=== PATIENT | female | born 1965 | race Caucasian/White ===

== ENCOUNTER 2020-05-25 10:55 | Outpatient (REF) | payer OTHER, SELFPAY ==
--- NOTE | 2020-05-25 11:04 | MM_ITS ---
EXAMINATION: MM DIAGNOSTIC DIGITAL BREAST TOMOSYNTHESIS, RIGHT CLINICAL INFORMATION: Short interval follow-up for question of small asymmetric density on prior screening mammography without definite persistent at time of recall. Assess for developing density. The lifetime risk of breast cancer based on the Tyrer-Cuzick Model is 9%. COMPARISON: Mammography: 12/23/2019, 12/20/2019 (BI-RADS 0), 12/06/2018, 10/10/2017, 12/13/2014, 06/02/2013, 06/01/2013. TECHNIQUE: Digital breast tomosynthesis is performed in both the craniocaudal and mediolateral oblique views along with computer-aided detection (CAD). Synthesized 2D images are generated from the tomosynthesis. Additional right CC view is provided. FINDINGS: There are scattered areas of fibroglandular density (ACR BI-RADS breast composition Category b). Parenchymal pattern is similar to prior exams. There is no developing density in the area of interest. Scattered parenchymal asymmetries posterior upper outer right breast are stable. There are no abnormal calcifications. The skin contours are smooth. Right breast will be reassessed again at time of annual bilateral mammography. Results are provided to the patient at time of visit by the technologist. MM/MM tomosynthesis diagnostic RT IMPRESSION: No developing density or other interval suspicious change. ASSESSMENT: BI-RADS 3: Probably Benign RECOMMENDATION: Diagnostic mammography at time of annual bilateral mammography, due in 6 months. This patient's information was entered into a reminder system with a target due date for their next mammogram.
== END 2020-05-25 10:56 | disposition home or self-care (01) ==
LOC: HO.MAMMO 10:55
PROVIDERS: PCP Internal Medicine; Visit Provider Internal Medicine
DX: N64.9 Disorder of breast, unspecified (principal)
CPT/HCPCS: 77061; 77065

== ENCOUNTER 2020-11-23 12:14 | Outpatient (REF) | payer OTHER, SELFPAY ==
--- NOTE | ~2020-11-23 | MM_ITS ---
EXAMINATION: MM DIAGNOSTIC DIGITAL BREAST TOMOSYNTHESIS, BILATERAL CLINICAL INFORMATION: Six-month follow-up right breast density and yearly left breast screening study. The lifetime risk of breast cancer based on the Tyrer-Cuzick Model is 9.6%. COMPARISON: Mammography: May 25, 2020 and studies dating back to May 17, 2012 TECHNIQUE: Digital breast tomosynthesis is performed in both the craniocaudal and mediolateral oblique views along with computer-aided detection (CAD). Synthesized 2D images are generated from the tomosynthesis. FINDINGS: The breasts are heterogeneously dense, which may obscure small masses (ACR BI-RADS breast composition Category c). There is a stable parenchymal pattern bilaterally with bilateral circumscribed densities which appear essentially stable. Recommend 12 month diagnostic follow-up study to ensure stability. Results are provided to the patient at time of visit by the technologist. MM/MM tomosynthesis diagnostic BI IMPRESSION: There are no significant changes from prior study. ASSESSMENT: BI-RADS 3: Probably Benign RECOMMENDATION: Diagnostic mammography at time of next annual exam, due in 12 months. This patient's information was entered into a reminder system with a target due date for their next mammogram.
== END 2020-11-23 12:15 | disposition home or self-care (01) ==
LOC: HO.MAMMO 12:14
PROVIDERS: PCP Internal Medicine; Visit Provider Internal Medicine
DX: R92.2 Inconclusive mammogram (principal)
CPT/HCPCS: 77062; 77066

== ENCOUNTER 2021-01-18 13:04 | Outpatient (REF) | payer OTHER, SELFPAY ==
[2021-01-18 14:08] LABS: MANUAL DIFF FLAG NO
[2021-01-18 14:23] LABS: Basophils Absolute Auto 0.1 X10*3/uL (0.0-0.2); Basophils Percent Auto 1.2 % (0-2); Eosinophils Absolute Auto 0.2 X10*3/uL (0.0-0.4); Eosinophils Percent Auto 5.1 % (0-4); Hematocrit 40.2 % (37-47); Hemoglobin 13.2 g/dl (12.0-16.0); Imm Gran Abs Auto 0.01 X10*3/uL (0.00-0.03); Imm Gran Pct Auto 0.2 % (0.0-0.4); Lymphocytes Absolute Auto 1.4 X10*3/uL (1.2-4.9); Lymphocytes Percent Auto 33.4 % (20-40); Mean Corpuscular HGB Conc 32.8 g/dl (31.0-35.0); Mean Corpuscular Hemoglobin 27.6 pg (27.0-33.0); Mean Corpuscular Volume 84.1 fL (80-98); Mean Platelet Volume 10.4 fL (9.4-12.3); Monocytes Absolute Auto 0.5 X10*3/uL (0.1-1.2); Neutrophils Absolute Auto 2.1 X10*3/uL (2.0-8.3); Neutrophils Percent Auto 49.1 % (45-73); Platelet Count 349 X10*3/uL (160-400); Red Blood Count 4.78 X10*6/uL (4.20-5.50); Red Cell Distribution Width 12.3 % (11.0-16.0); White Blood Count 4.3 X10*3/uL (4.8-10.8)
[2021-01-18 14:47] LABS: Alanine Aminotransferase 45 U/L (0-31); Albumin Level 4.2 g/dL (3.5-5.0); Alkaline Phosphatase 77 U/L (39-117); Anion Gap 14 (12-20); Aspartate Amino Transferase 34 U/L (5-31); Bilirubin Total 1.4 mg/dL (0.0-1.0); Blood Urea Nitrogen 13 mg/dL (9-16); Calcium 9.7 mg/dL (8.4-10.2); Carbon Dioxide 27 mmol/L (22-29); Chloride 104 mmol/L (96-108); Cholesterol 223 mg/dL; Estimated Glomerular Filt Rate > 60; Glucose Fasting 88 mg/dL (60-99); HDL Cholesterol 54 mg/dL; LDL Cholesterol Calculated 133 mg/dl; Potassium 4.5 mmol/L (3.3-5.1); Sodium 140 mmol/L (135-145); Total Protein 7.5 g/dL (6.5-8.0); Triglycerides 181 mg/dL
[2021-01-18 15:08] LABS: Thyroid Stimulating Hormone 1.61 uIU/mL (0.32-4.0)
== END 2021-01-18 13:05 | disposition home or self-care (01) ==
LOC: HO.HMGCLDS 13:04
PROVIDERS: PCP Internal Medicine; Visit Provider Internal Medicine
DX: Z00.00 Encounter for general adult medical examination without abnormal findings (principal); E11.9 Type 2 diabetes mellitus without complications; E03.9 Hypothyroidism, unspecified
CPT/HCPCS: 36415; 80053; 80061; 84443; 85025

== ENCOUNTER → 2021-03-25 08:28 | Outpatient (BNVA) | payer OTHER, SELFPAY | PROVIDERS: PCP Internal Medicine; Visit Provider Advanced Practice Midwife ==

== ENCOUNTER 2021-05-20 13:12 | Outpatient (REF) | payer OTHER, SELFPAY | END 2021-05-20 13:13 | disposition home or self-care (01) | LOC: HO.HMGCLDS 13:12 | PROVIDERS: Visit Provider Internal Medicine | DX: Z20.822 Contact with and (suspected) exposure to COVID-19 (principal) | CPT/HCPCS: C9803; U0003; U0005 ==

== ENCOUNTER 2021-07-05 18:11 | Emergency (ER) | payer OTHER, SELFPAY ==
--- NOTE | ~2021-07-05 | XR_ITS ---
EXAMINATION: XR CHEST CLINICAL INFORMATION: Covid positive. Chest pain. COMPARISON: Chest x-ray 11/27/2017 TECHNIQUE: Frontal view of the chest was obtained. 6:53 PM FINDINGS: No significant abnormality is noted involving the heart, lungs, mediastinum, bony thorax or soft tissues. XR/XR chest 1V IMPRESSION: Unremarkable examination.
--- NOTE | ~2021-07-05 | CT_ITS ---
EXAMINATION: CT ANGIOGRAM OF THE CHEST WITH AND WITHOUT CONTRAST (CT PULMONARY ANGIOGRAM FOR PE) CLINICAL INFORMATION: Reason for Exam COVID + elevated ddimer r/o PE COMPARISON: None TECHNIQUE: Prior to contrast administration, noncontrast localization images were obtained. Subsequently, multidetector volumetric imaging was performed from the thoracic inlet to below the diaphragms following the administration of 80 mL Omnipaque 350 intravenous contrast. No contrast reaction reported Sagittal, coronal, and MIP oblique sagittal reformatted images were obtained on the CT workstation, uploaded to PACS, and reviewed. This CT examination was performed using dose optimization techniques as appropriate, variously including the following: *Automated exposure control *Adjustment of mA and/or kV according to patient size (this includes techniques or standardized protocols for targeted exams where dose is matched to indication/reason for exam; i.e. extremities or head) *Use of iterative reconstruction technique Total exam dose-length product 262 mGy-cm FINDINGS: QUALITY OF STUDY/CONTRAST BOLUS: Satisfactory. PULMONARY ARTERIES: No central or segmental pulmonary emboli. THORACIC AORTA: No aneurysm or dissection. LUNG: No focal consolidation, nodules or masses. PLEURA: No pleural effusion or pneumothorax. MEDIASTINUM: Normal heart size. No pericardial effusion. No hilar or mediastinal lymphadenopathy. No evidence of septal bowing or right heart strain. There is diffuse wall thickening of the mid and distal esophagus. Moderate sliding-type hiatal hernia. CHEST WALL/AXILLA: No axillary or internal mammary lymphadenopathy. OSSEOUS STRUCTURES: No acute or suspicious osseous abnormality. UPPER ABDOMEN: Hepatic steatosis. Cholecystectomy. CT/CT angio chest PE protocol IMPRESSION: * No pulmonary embolism. * No aortic aneurysm or dissection. * No acute pulmonary parenchymal abnormalities. * Circumferential esophageal wall thickening of the mid and distal esophagus. Suspect esophagitis. * Small sliding-type hiatal hernia. * Hepatic steatosis. VTE: negative
[2021-07-05 18:37] VITALS: BP 179/92; PULSE 98; RESP 18; TEMP 37.1; O2SAT 97; BMI 25.6
--- NOTE | 2021-07-05 18:42 | ECG_ITS ---
Test Reason : COVID+ CHEST PAIN Blood Pressure : / mmHG Vent. Rate : 081 BPM Atrial Rate : 081 BPM P-R Int : 130 ms QRS Dur : 088 ms QT Int : 370 ms P-R-T Axes : 061 003 040 degrees QTc Int : 429 ms Normal sinus rhythm Normal ECG When compared with ECG of 16-OCT-2004 08:44, No significant change was found Referred By: Generic ED Physician Electronically Signed By:MARIE RODRIGUEZ MD
[2021-07-05 21:18] LABS: MANUAL DIFF FLAG NO
[2021-07-05 21:21] LABS: Basophils Percent Auto 0.7 % (0-2); Eosinophils Absolute Auto 0.2 X10*3/uL (0.0-0.4); Eosinophils Percent Auto 3.9 % (0-4); Hematocrit 39.5 % (37.0-47.0); Hemoglobin 12.9 g/dl (12.0-16.0); Imm Gran Abs Auto 0.01 X10*3/uL (0.00-0.03); Imm Gran Pct Auto 0.2 % (0.0-0.4); Lymphocytes Absolute Auto 1.6 X10*3/uL (1.2-4.9); Lymphocytes Percent Auto 38.1 % (20-40); Mean Corpuscular HGB Conc 32.7 g/dl (31.0-35.0); Mean Corpuscular Volume 85.7 fL (80.0-98.0); Mean Platelet Volume 9.2 fL (9.4-12.3); Monocytes Absolute Auto 0.4 X10*3/uL (0.1-1.2); Monocytes Percent Auto 9.3 % (2-11); Neutrophils Absolute Auto 1.9 x10*3/uL (2.0-8.3); Neutrophils Percent Auto 47.8 % (45-73); Platelet Count 357 X10*3/uL (160-400); Red Blood Count 4.61 X10*6/uL (4.20-5.50); Red Cell Distribution Width 12.5 % (11.0-16.0); White Blood Count 4.1 X10*3/uL (4.8-10.8)
--- NOTE | 2021-07-05 21:26 | ED.CHESTPAIN ---
HPI - Chest Pain General Chief Complaint: Chest Pain Stated Complaint: Covid+/chest pains/Fever Time Seen by Provider: 07/05/21 21:25 Source: patient Mode of arrival: ambulatory Limitations: no limitations History of Present Illness HPI narrative: COVID + 07/01 symptoms started 06/28 she is vaccinated and boostered with [facility] NUÑEZ complaint: chest pain Pertinent past history: other (COVID +) Onset (ago): day(s) (4) Timing of current episode: daily Prior episodes: Yes Onset: during rest and during exertion Pain location: substernal Pain radiation: none Severity: moderate Quality: aching and heaviness Relieving factors: nothing Exacerbating factors: movement and other (coughing) Context: other (COVID +, tried ranitidine without relief, taking motrin/tylenol daily for fevers) Associated symptoms: dyspnea, fever and cough Treatment prior to arrival: none Related Data Home Medications Medication Instructions Recorded Confirmed multivitamin 1 tab PO DAILY 12/20/20 03/25/21 psyllium husk 0.52 gram capsule 0.52 g PO DAILY 12/20/20 03/25/21 (Daily Fiber) Previous Rx's Medication Instructions Recorded omeprazole 20 mg capsule,delayed 20 mg PO BID 14 Days #28 cap 07/06/21 release Allergies Allergy/AdvReac Type Severity Reaction Status Date / Time acetaminophen [From PERCOCET] Allergy Unknown NAUSEA/VOMI Verified 03/25/21 09:10 TING avocado [AVOCADO] Allergy Unknown ANAPHYLAXIS Verified 03/25/21 09:10 oxycodone [From PERCOCET] Allergy Unknown NAUSEA/VOMI Verified 03/25/21 09:10 TING Avocado Allergy Unknown anaphalaxis Uncoded 03/25/21 09:10 avocado Allergy Unknown anaphylaxis Uncoded 03/25/21 09:10 percocet Allergy Unknown severe Uncoded 04/21/18 00:00 vomiting Review of Systems Review of Systems: Constitutional : No Weight loss, pos Fever, No Chills ENT/Mouth : No sore throat, No Rhinorrhea Eyes: No Eye Pain, No Swelling Cardiovascular : pos Chest Pain, pos SOB, no Dyspnea on Exertion, No Orthopnea, No Edema, No Palpitations Respiratory : pos Cough, No Sputum Gastrointestinal : no Nausea, No Vomiting, No Diarrhea, No abdominal Pain, No Hematochezia, No Melena Genitourinary : No Dysuria, No Urinary Frequency Musculoskeletal : No joint pain, No Myalgias, No Joint Swelling Skin : No Skin Lesions, No rash Neuro : No Weakness, No Numbness, No Dizziness, No Headache Psych : No Anxiety/Panic, No Depression Heme/Lymph: No Bruising, No Lymphadenopathy Endocrine : No Polyuria, No Polydipsia All other systems reviewed and are negative [facility] Past Medical History Attestation statement: The following information was validated with the patient. Medical History History of gallbladder disease Surgical History History of cholecystectomy Family History Family History Mother No problems noted. Father No problems noted. Sister Mental health disorder Substance use disorder Social History Social History Housing: House Patient Tobacco Use Status: Never used Tobacco e-Cigarette/Vaping Use: Never Used Second Hand Smoke Exposure: No Advance Directives: No Advance Directives Information Provided: No service: No Current occupational status: employed Physical Exam Vital Signs: Vital Signs: Last Vital Signs Temp 98.5 F 07/06/21 00:27 Pulse 82 07/06/21 00:27 Resp 20 07/06/21 00:27 BP 158/90 H 07/06/21 00:27 Pulse Ox 100 07/06/21 00:27 BMI result Body Mass Index 25.6 Appearance: Alert. Oriented X3. No acute distress. Eyes: Pupils equal, round and reactive to light. ENT: Pharynx normal. Neck: Normal inspection. Neck supple. CVS: Normal heart rate and rhythm. Pulses normal. Respiratory: No respiratory distress. Breath sounds normal. Abdomen: Soft and non-tender. Skin: Skin warm and dry. Normal skin color. Normal skin turgor. Extremities: No lower extremity edema. No calf ttp Neuro: Oriented X 3. No motor deficit. No sensory deficit. Course Course Course Narrative: EKG normal trop negative ddimer mildly elevated will obtain CTA CTA negative other than esophagitis MDM - Chest Pain MDM Narrative Medical decision making narrative: 56 yo female who is vaccinated and boostered with Pfizer symptoms for 7 days + test on 07/01 here with chest pain seems possibly GI related like GERD from ibuprofen vs COVID related chest pain - at this time will obtain EKG, troponin x 1 given symptoms > 6 hours, ddimer though low prob PE, CXR for pneumonia. Dispo per results and findings. If workup negative will start on PPI BID for 2 weeks hold ibuprofen as well. Lab Data Result diagrams: 07/05/21 21:14 07/05/21 21:14 Labs: Lab Results 07/05/21 07/05/21 07/05/21 Range/Units 21:14 21:14 21:14 WBC 4.1 L (4.8-10.8) X10*3/uL RBC 4.61 (4.20-5.50) X10*6/uL Hgb 12.9 (12.0-16.0) g/dl Hct 39.5 (37.0-47.0) % MCV 85.7 (80.0-98.0) fL MCH 28.0 (27.0-33.0) pg MCHC 32.7 (31.0-35.0) g/dl RDW 12.5 (11.0-16.0) % Plt Count 357 (160-400) X10*3/uL MPV 9.2 L (9.4-12.3) fL Immature Gran % (Auto) 0.2 (0.0-0.4) % Neut % (Auto) 47.8 (45-73) % Lymph % (Auto) 38.1 (20-40) % [place] % (Auto) 9.3 (2-11) % Eos % (Auto) 3.9 (0-4) % Baso % (Auto) 0.7 (0-2) % Lymph # (Auto) 1.6 (1.2-4.9) X10*3/uL [place] # (Auto) 0.4 (0.1-1.2) X10*3/uL Eos # (Auto) 0.2 (0.0-0.4) X10*3/uL Baso # (Auto) 0.0 (0.0-0.2) X10*3/uL Abs Immat Gran (auto) 0.01 (0.00-0.03) X10*3/uL Absolute Neuts (auto) 1.9 L (2.0-8.3) x10*3/uL Absolute Nucleated RBC 0.000 (0.0-0.012) X10*3/uL Nucleated RBC % (auto) 0.0 (0.0-0.2) /100WBC D-Dimer High Sensitivty NG/ML Sodium 142 (135-145) mmol/L Potassium 4.5 (3.3-5.1) mmol/L Chloride 105 (96-108) mmol/L Carbon Dioxide 29 (22-29) mmol/L Anion Gap 13 (12-20) BUN 17 H (9-16) mg/dL Creatinine 0.77 (0.5-1.4) mg/dL Estim Creat Clear Calc 73.1 Estimated GFR > 60 Random Glucose 103 (60-115) mg/dL Calcium 9.2 (8.4-10.2) mg/dL Troponin I High Sens < 3.5 (<3.5-17.0) ng/L 07/05/21 Range/Units 21:41 WBC (4.8-10.8) X10*3/uL RBC (4.20-5.50) X10*6/uL Hgb (12.0-16.0) g/dl Hct (37.0-47.0) % MCV (80.0-98.0) fL MCH (27.0-33.0) pg MCHC (31.0-35.0) g/dl RDW (11.0-16.0) % Plt Count (160-400) X10*3/uL MPV (9.4-12.3) fL Immature Gran % (Auto) (0.0-0.4) % Neut % (Auto) (45-73) % Lymph % (Auto) (20-40) % [place] % (Auto) (2-11) % Eos % (Auto) (0-4) % Baso % (Auto) (0-2) % Lymph # (Auto) (1.2-4.9) X10*3/uL [place] # (Auto) (0.1-1.2) X10*3/uL Eos # (Auto) (0.0-0.4) X10*3/uL Baso # (Auto) (0.0-0.2) X10*3/uL Abs Immat Gran (auto) (0.00-0.03) X10*3/uL Absolute Neuts (auto) (2.0-8.3) x10*3/uL Absolute Nucleated RBC (0.0-0.012) X10*3/uL Nucleated RBC % (auto) (0.0-0.2) /100WBC D-Dimer High Sensitivty 344 NG/ML Sodium (135-145) mmol/L Potassium (3.3-5.1) mmol/L Chloride (96-108) mmol/L Carbon Dioxide (22-29) mmol/L Anion Gap (12-20) BUN (9-16) mg/dL Creatinine (0.5-1.4) mg/dL Estim Creat Clear Calc Estimated GFR Random Glucose (60-115) mg/dL Calcium (8.4-10.2) mg/dL Troponin I High Sens (<3.5-17.0) ng/L ECG Data ECG #1: Attestation: I personally reviewed and interpreted this ECG as follows: ECG interpretation date: 07/05/21 ECG interpretation time: 21:27 Interpretation: Rate: 81 Rhythm: NSR [place]: normal Normal P waves. Normal BRUNO. Normal QRS complex. ST T wave : normal no JEAN qTC: normal prior studies: no acute ischemia The study has been interpreted contemporaneously by me. . Discharge Plan Discharge Clinical Impression: Atypical chest pain, Esophagitis Patient Disposition: Home, Self-Care Instructions: Chest Pain (ED), Esophagitis (ED) Additional Instructions: return to ED for any worsening symptoms or concerns no further motrin, ranitidine *? No pulmonary embolism. *? No aortic aneurysm or dissection. *? No acute pulmonary parenchymal abnormalities. *? Circumferential esophageal wall thickening of the mid and distal esophagus. Suspect esophagitis. *? Small sliding-type hiatal hernia. *? Hepatic steatosis. Prescriptions: New omeprazole 20 mg capsule,delayed release(DR/EC) 20 mg PO BID 14 Days Qty: 28 0RF No Action multivitamin Tablet 1 tab PO DAILY 0RF psyllium husk [Daily Fiber] 0.52 gram capsule 0.52 g PO DAILY 0RF Stand Alone Forms: Work/School Release Interventions: ED Discharge Assessment Last Done: 07/06/21 00:32 Discharge Date/Time: 07/06/21 00:40
[2021-07-05 21:34] LABS: Anion Gap 13 (12-20); Blood Urea Nitrogen 17 mg/dL (9-16); Calcium 9.2 mg/dL (8.4-10.2); Carbon Dioxide 29 mmol/L (22-29); Chloride 105 mmol/L (96-108); Creatinine Clr Calc Pharmacy 73.1; Estimated Glomerular Filt Rate > 60; Glucose Random 103 mg/dL (60-115); Potassium 4.5 mmol/L (3.3-5.1); Sodium 142 mmol/L (135-145)
[2021-07-05 21:39] LABS: Troponin-I High Sensitivity < 3.5 ng/L (<3.5-17.0)
[2021-07-05] MEDS: Magnesium Hydrox/Alum Hydrox 30 ML ORAL.SUSP PO (21:45)
[2021-07-05] MEDS: Lidocaine HCl Viscous 2 % 15 ML SOLUTION MUCOUS MEM (21:45)
[2021-07-05 21:55] LABS: D Dimer High Sensitivity 344 NG/ML
[2021-07-05 23:16] VITALS: BP 165/78; PULSE 77; RESP 16; O2SAT 97
[2021-07-05] MEDS: 0.9 % Sodium Chloride 500 ML IV (23:27)
[2021-07-05 23:30] VITALS: BP 162/92; PULSE 79; RESP 17; O2SAT 98
[2021-07-05] MEDS: iohexoL 350 MG/ML 100 ML INFUS..BTL 65 ML IV (23:53)
[2021-07-06] MEDS: Omeprazole 20 MG CAPSULE.DR PO (00:25)
[2021-07-06 00:27] VITALS: BP 158/90; PULSE 82; RESP 20; TEMP 36.9; O2SAT 100
== END 2021-07-06 00:40 | disposition home or self-care (01) ==
PROVIDERS: Emergency Provider Emergency Medicine; PCP Internal Medicine
DX: R07.89 Other chest pain (principal); K20.90 Esophagitis, unspecified without bleeding
CPT/HCPCS: 36415; 71045; 71275; 80048; 84484; 85025; 85379; 93005; 96360; 99284; Q9967

== ENCOUNTER 2021-07-11 12:24 | Outpatient (REF) | payer OTHER, SELFPAY ==
[2021-07-11 13:08] LABS: COVID-19 Test Negative (Negative)
== END 2021-07-11 12:25 | disposition home or self-care (01) ==
LOC: HO.LAB 12:24
PROVIDERS: Visit Provider Internal Medicine
DX: Z20.822 Contact with and (suspected) exposure to COVID-19 (principal)
CPT/HCPCS: 87635; C9803

== ENCOUNTER 2021-11-25 12:54 | Outpatient (REF) | payer OTHER, SELFPAY ==
--- NOTE | ~2021-11-25 | MM_ITS ---
EXAMINATION: MM DIAGNOSTIC DIGITAL BREAST TOMOSYNTHESIS, BILATERAL CLINICAL INFORMATION: Due for yearly. Small asymmetric density noted upper right breast in 2020. Assess for developing density. The lifetime risk of breast cancer based on the Tyrer-Cuzick Model is 11%. COMPARISON: Mammography: 11/23/2020, 11/22/2020, 12/23/2019, 12/20/2019 (BI-RADS 0), 12/06/2018 TECHNIQUE: Digital breast tomosynthesis is performed in both the craniocaudal and mediolateral oblique views along with computer-aided detection (CAD). Synthesized 2D images are generated from the tomosynthesis. FINDINGS: There are scattered areas of fibroglandular density (ACR BI-RADS breast composition Category b). Parenchymal pattern is similar to prior exams. There is no developing density or significant mass or architectural abnormality. No abnormal calcifications. The axilla and skin contours are unremarkable. Results are provided to the patient at time of visit by the technologist. MM/MM tomosynthesis diagnostic BI IMPRESSION: No significant changes from prior studies. ASSESSMENT: BI-RADS 2: Benign RECOMMENDATION: Routine annual mammography screening. This patient's information was entered into a reminder system with a target due date for their next mammogram.
== END 2021-11-25 12:55 | disposition home or self-care (01) ==
LOC: HO.MAMMO 12:54
PROVIDERS: PCP Internal Medicine; Visit Provider Internal Medicine
DX: R92.2 Inconclusive mammogram (principal)
CPT/HCPCS: 77062; 77066

== ENCOUNTER 2021-12-23 09:37 | Outpatient (REF) | payer OTHER, SELFPAY ==
[2021-12-23 10:36] LABS: Basophils Absolute Auto 0.1 X10*3/uL (0.0-0.2); Basophils Percent Auto 1.4 % (0-2); Eosinophils Absolute Auto 0.3 X10*3/uL (0.0-0.4); Hematocrit 38.1 % (37.0-47.0); Hemoglobin 12.8 g/dl (12.0-16.0); Imm Gran Abs Auto 0.01 X10*3/uL (0.00-0.03); Imm Gran Pct Auto 0.2 % (0.0-0.4); Lymphocytes Absolute Auto 1.4 X10*3/uL (1.2-4.9); Lymphocytes Percent Auto 31.3 % (20-40); MANUAL DIFF FLAG SCAN; Mean Corpuscular HGB Conc 33.6 g/dl (31.0-35.0); Mean Corpuscular Volume 83.4 fL (80.0-98.0); Mean Platelet Volume 9.9 fL (9.4-12.3); Monocytes Absolute Auto 0.4 X10*3/uL (0.1-1.2); Monocytes Percent Auto 8.3 % (2-11); Neutrophils Absolute Auto 2.3 x10*3/uL (2.0-8.3); Neutrophils Percent Auto 51.8 % (45-73); Platelet Count 339 X10*3/uL (160-400); Red Blood Count 4.57 X10*6/uL (4.20-5.50); Red Cell Distribution Width 12.6 % (11.0-16.0); SCAN SMEAR FLAG 1; White Blood Count 4.4 X10*3/uL (4.8-10.8)
[2021-12-23 10:54] LABS: SLIDE REVIEW VERIFIED
[2021-12-23 10:58] LABS: Alanine Aminotransferase 33 U/L (0-31); Albumin Level 4.1 g/dL (3.5-5.0); Alkaline Phosphatase 78 U/L (39-117); Anion Gap 14 (12-20); Aspartate Amino Transferase 25 U/L (5-31); Bilirubin Total 1.1 mg/dL (0.0-1.0); Blood Urea Nitrogen 12 mg/dL (9-16); Carbon Dioxide 28 mmol/L (22-29); Chloride 104 mmol/L (96-108); Cholesterol 217 mg/dL; Estimated Glomerular Filt Rate > 60; Glucose Fasting 101 mg/dL (60-99); HDL Cholesterol 48 mg/dL; LDL Cholesterol Calculated 130 mg/dl; Potassium 4.5 mmol/L (3.3-5.1); Sodium 141 mmol/L (135-145); Total Protein 7.6 g/dL (6.5-8.0); Triglycerides 198 mg/dL
[2021-12-23 11:05] LABS: Thyroid Stimulating Hormone 1.06 uIU/mL (0.32-4.0)
== END 2021-12-23 09:38 | disposition home or self-care (01) ==
LOC: HO.LAB 09:37
PROVIDERS: PCP Internal Medicine; Visit Provider Internal Medicine
DX: Z13.0 Encounter for screening for diseases of the blood and blood-forming organs and certain disorders involving the immune mechanism (principal); E03.9 Hypothyroidism, unspecified; I10 Essential (primary) hypertension; E78.5 Hyperlipidemia, unspecified
CPT/HCPCS: 36415; 80053; 80061; 84443; 85025

== ENCOUNTER 2022-12-01 11:11 | Outpatient (REF) | payer OTHER, SELFPAY ==
--- NOTE | ~2022-12-01 | MM_ITS ---
EXAMINATION: MM SCREENING DIGITAL BREAST TOMOSYNTHESIS, BILATERAL CLINICAL INFORMATION: Screening. Asymptomatic. The lifetime risk of breast cancer based on the Tyrer-Cuzick Model is 10%. COMPARISON: Mammography: This study is compared with prior exams dating back to 2019. TECHNIQUE: Digital breast tomosynthesis is performed in both the craniocaudal and mediolateral oblique views along with computer-aided detection (CAD). Synthesized 2D images are generated from the tomosynthesis. FINDINGS: There are scattered areas of fibroglandular density (ACR BI-RADS breast composition Category b). There are no significant masses, abnormal calcifications, or other abnormalities. MM/MM tomosynthesis screening BI IMPRESSION: No mammographic evidence of malignancy. ASSESSMENT: BI-RADS BI-RADS 1 - Negative RECOMMENDATION: Routine annual mammography screening. 1 year F/U This examination should not preclude the clinical evaluation of a suspicious palpable abnormality. This patient's information was entered into a reminder system with a target due date for their next mammogram.
== END 2022-12-01 11:12 | disposition home or self-care (01) ==
LOC: HO.MAMMO 11:11
PROVIDERS: PCP Internal Medicine; Visit Provider Internal Medicine
DX: Z12.31 Encounter for screening mammogram for malignant neoplasm of breast (principal)
CPT/HCPCS: 77063; 77067

== ENCOUNTER → 2022-12-01 11:15 | Outpatient (BNV) | payer OTHER, SELFPAY | PROVIDERS: PCP Internal Medicine; Visit Provider Radiology Diagnostic Radiology | DX: Z12.31 Encounter for screening mammogram for malignant neoplasm of breast (principal) | CPT/HCPCS: 77063; 77067 ==

== ENCOUNTER 2022-12-24 09:49 | Outpatient (AMB) | payer OTHER, SELFPAY ==
--- NOTE | 2022-12-24 10:02 | A.OFFPC_ITS ---
Vital Signs 12/24/22 10:04 Height 5 ft 2 in Weight 158 lb 2 oz BMI 28.9 BP 122/72 Blood Pressure Location Lt brachial Position Sitting Pulse 83 Pulse Source Pulse Oximeter Pulse Oximetry (%) 99 Oxygen Delivery Method Room Air Intake Visit Reasons: Annual exam Intake Note: Patient is here today for a physical. 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: Not Required per policy Accompanied by: Self / Same As Patient Allergies acetaminophen [From PERCOCET] Allergy (Unknown, Verified 12/24/22 10:04) NAUSEA/VOMITING avocado [AVOCADO] Allergy (Unknown, Verified 12/24/22 10:04) ANAPHYLAXIS oxycodone [From PERCOCET] Allergy (Unknown, Verified 12/24/22 10:04) NAUSEA/VOMITING percocet Allergy (Unknown, Uncoded 12/24/22 10:04) severe vomiting Medication List - Last Reconciled 12/24/22 by Darryl Clark MD multivitamin 1 tab PO DAILY omeprazole 20 mg PO BID 14 days psyllium husk (Daily Fiber) 0.52 grams PO DAILY Tobacco use date assessed: 12/24/22 Dental Screening Dental Screen Date: 12/24/22 Did you have a dental visit in the last 12 months?: No Did you have a dental problem in the last 6 months where you did not have access to dental care?: No Was dental information given to patient?: No HPI Annual exam HPI Details mild gerd [facility] Medical History History of gallbladder disease Surgical History History of cholecystectomy Family History Mother No problems noted. Father No problems noted. Sister Mental health disorder Substance use disorder Social History (Updated 12/24/22 @ 10:08 by BABATUNDE Jewell) Housing: House Alcohol intake: never Patient Tobacco Use Status: Never used Tobacco e-Cigarette/Vaping Use: Never Used Second Hand Smoke Exposure: No service: No Current occupational status: employed Cognitive needs: No Hearing needs: No Vision needs: Yes (glasses) Female Reproductive History Menstrual Age of Menarche: 16 Questionnaire PHQ-9 Over the last 2 weeks, how often have you been bothered by any of the following problems? 1. Little interest or pleasure in doing things: not at all 2. Feeling down, depressed, or hopeless: not at all 3. Trouble falling or staying asleep, or sleeping too much: not at all 4. Feeling tired or having little energy: not at all 5. Poor appetite or overeating: not at all 6. Feeling bad about yourself - or that you are a failure or have let yourself or your family down: not at all 7. Trouble concentrating on things, such as reading the newspaper or watching television: not at all 8. Moving or speaking so slowly that other people could have noticed. Or the opposite - being so fidgety or restless that you have been moving around a lot more than usual: not at all 9. Thoughts that you would be better off or of hurting yourself in some way: not at all Total score: 0 Depression Screening Interpretation: Negative 48535 - PHQ-9 Billing: Yes Source: Developed by Drs. Jordin Leon, Letty Ray, Eliu Mitchell and colleagues, with an educational enedina from [employer] Thrive Questionnaire Date Thrive assessed: 12/24/22 I am a: Patient What is your living situation today?: I have a steady place to live Within the past 12 months, did the food you bought not last and you didn't have the money to get more?: Never true Within the past 12 months, did you worry whether your food would run out before you got money to buy more?: Never true Do you have trouble paying for medicines?: No Do you have trouble getting transportation to medical appointments?: No Do you have trouble paying your heating and electricity bill?: No Do you have trouble taking care of your child, family member or friend?: No Do you have trouble with day-to-day activities such as bathing, preparing meals, shopping, managing finances, etc.?: No Are you currently unemployed and looking for a job?: No Are you interested in more education?: No Currently or been in a relationship where the following occur: no concerns reported AUDIT C Alcohol Use Questionnaire (AUDIT-C) 1. How often do you have a drink containing alcohol?: Never 2. How many drinks containing alcohol do you have on a typical day when you are drinking?: 1 or 2 Total Score: 0 Score Reviewed/Action Taken: Yes LELAND-7 AMB Questionnaire LELAND-7 Date LELAND - 7 assessed: 12/24/22 Feeling nervous, anxious, or on edge: 0 = Not at all Not being able to stop or control worryin = Not at all Worrying too much about different things: 0 = Not at all Trouble relaxin = Not at all Being so restless that it is hard to sit still: 0 = Not at all Becoming easily annoyed or irritable: 0 = Not at all Feeling afraid as if something awful might happen: 0 = Not at all Total LELAND-7 score (0-4 normal; 5-9 mild; 10-14 moderate; 15-21 severe): 0 Source: Developed by Drs. Jordin Leon, Letty Ray, Eliu Mitchell and colleagues, with an educational enedina from [employer] LELAND-7 Assessment Billing LELAND-7 Assessment Tool: LELAND-7 Assessment 66993 Review of Systems Const Denies chills, Denies fatigue, Denies headache(s) and Denies weight loss Eyes Denies change in vision, Denies diplopia and Denies eye pain ENT Denies vertigo, Denies dizziness, Denies headache(s) and Denies nasal discharge Card Denies chest pain, Denies rapid heart rate and Denies dyspnea on exertion Resp Denies chest congestion, Denies cough, Denies pain with cough and Denies dyspnea on exertion GI Denies abdominal pain, Denies hematochezia and Denies change in bowel habits Musc Denies myalgias, Denies arthralgias and Denies joint swelling Skin/Breast Denies lesions and Denies unusual bruising Neuro Denies vertigo, Denies dizziness, Denies headache(s) and Denies focal weakness Endo Denies fatigue Physical exam (Primary Care) Vital Signs: Last Vital Signs Pulse 83 12/24/22 10:04 BP 122/72 12/24/22 10:04 Pulse Ox 99 12/24/22 10:04 Oxygen Delivery Method Room Air 12/24/22 10:04 BMI result Body Mass Index 28.9 Tobacco/Smoking Status: Tobacco use Status Tobacco use date assessed 12/24/22 12/24/22 10:10 Patient Tobacco Use Status Never used Tobacco 12/24/22 10:10 e-Cigarette/Vaping Use Never Used 12/24/22 10:10 PHQ-9: PHQ-9 Score PHQ-9: Total score 0 12/24/22 10:10 Depression Screening Interpretation: Negative Thrive Assessment: Date of Thrive Assessment Date Thrive assessed 12/24/22 12/24/22 10:10 Currently or been in a relationship where the following occur: no concerns reported Const General: cooperative, healthy appearing and no acute distress Orientation/consciousness: oriented to person, oriented to place and oriented to time HENMT Head: Yes normal to inspection, Yes normocephalic and Yes atraumatic Mouth: Normal oral and palatal mucosa present and tongue normal Throat: Yes posterior oropharynx normal and Yes uvula midline Eyes General: appearance normal, both eyes and all related structures Neck Neck: Yes normal visual inspection, Yes full ROM and Yes no lymphadenopathy Thyroid: Thyroid normal Carotids: normal carotid upstroke Chest Chest palpation & inspection: normal inspection of the chest Resp Effort & Inspection: normal respiratory effort and able to speak in complete sentences Auscultation: clear to auscultation bilaterally Cardio Jugular venous distension: no JVD Palpation: normal PMI Rate: regular rate Rhythm: regular rhythm Heart sounds: S1 normal heart sound present and S2 normal heart sound present GI Inspection: Yes normal to inspection Palpation (GI): Soft to palpation and No hepatosplenomegaly present Auscultation: normal bowel sounds General: Yes no CVA tenderness Back/Spine/Pelvis Back: no CVA tenderness Skin General skin exam: no rashes or lesions noted Neuro General: oriented to person, oriented to place and oriented to time Extrem General: Yes normal to inspection and Yes full ROM Assessment and Plan Assessment & Plan (1) Physical exam: Code(s): Z00.00 - Encounter for general adult medical examination without abnormal findings Plan: do labs (2) Chronic GERD: Code(s): K21.9 - Gastro-esophageal reflux disease without esophagitis Plan: stable; same rx Orders: Orders Comprehensive [place]. Panel Fast Today N28.9 - Disorder of kidney and ureter, unspecified Lipid Panel Today E78.5 - Hyperlipidemia, unspecified Thyroid Stimulating Hormone Today E03.9 - Hypothyroidism, unspecified Complete Blood Count Auto Diff Today D64.9 - Anemia, unspecified Medications: New azithromycin take 500 mg today (day 1), then 250 mg for 4 days (days 2-5) PO 6 tabs 0RF Refilled omeprazole 20 mg PO BID 14 days 28 caps 0RF Coding Level of Care Code Est Pt Prev Care 40-64y(77328) Diagnoses Physical exam Z00.00 Chronic GERD K21.9 Additional Codes LELAND-7 Assessment Billing - LELNAD-7 Assessment Tool: LELAND-7 Assessment 00106 ([id number])
[2022-12-24 10:04] VITALS: BP 122/72; PULSE 83; O2SAT 99; BMI 28.9
== END 2022-12-24 10:34 | disposition home or self-care (01) ==
PROVIDERS: PCP Internal Medicine; Visit Provider Internal Medicine
DX: Z00.00 Encounter for general adult medical examination without abnormal findings (principal); K21.9 Gastro-esophageal reflux disease without esophagitis
CPT/HCPCS: 99396

== ENCOUNTER 2022-12-24 10:38 | Outpatient (REF) | payer OTHER, SELFPAY ==
[2022-12-24 10:58] LABS: MANUAL DIFF FLAG NO
[2022-12-24 11:19] LABS: Basophils Absolute Auto 0.1 X10*3/uL (0.0-0.2); Basophils Percent Auto 1.2 % (0-2); Eosinophils Absolute Auto 0.3 X10*3/uL (0.0-0.4); Eosinophils Percent Auto 5.6 % (0-4); Hematocrit 38.3 % (37.0-47.0); Hemoglobin 12.5 g/dl (12.0-16.0); Imm Gran Abs Auto 0.02 X10*3/uL (0.00-0.03); Imm Gran Pct Auto 0.4 % (0.0-0.4); Lymphocytes Absolute Auto 1.6 X10*3/uL (1.2-4.9); Lymphocytes Percent Auto 29.9 % (20-40); Mean Corpuscular HGB Conc 32.6 g/dl (31.0-35.0); Mean Corpuscular Hemoglobin 27.7 pg (27.0-33.0); Mean Corpuscular Volume 84.7 fL (80.0-98.0); Mean Platelet Volume 9.5 fL (9.4-12.3); Monocytes Absolute Auto 0.5 X10*3/uL (0.1-1.2); Monocytes Percent Auto 9.4 % (2-11); Neutrophils Absolute Auto 2.8 x10*3/uL (2.0-8.3); Neutrophils Percent Auto 53.5 % (45-73); Platelet Count 330 X10*3/uL (160-400); Red Blood Count 4.52 X10*6/uL (4.20-5.50); Red Cell Distribution Width 12.7 % (11.0-16.0); White Blood Count 5.2 X10*3/uL (4.8-10.8)
[2022-12-24 11:59] LABS: Alanine Aminotransferase 77 U/L (0-31); Alkaline Phosphatase 97 U/L (39-117); Anion Gap 13 (12-20); Aspartate Amino Transferase 41 U/L (5-31); Bilirubin Total 0.7 mg/dL (0.0-1.0); Blood Urea Nitrogen 17 mg/dL (9-16); Calcium 9.4 mg/dL (8.4-10.2); Carbon Dioxide 26 mmol/L (22-29); Chloride 107 mmol/L (96-108); Cholesterol 241 mg/dL; Estimated Glomerular Filt Rate > 60; Glucose Fasting 95 mg/dL (60-99); HDL Cholesterol 50 mg/dL; LDL Cholesterol Calculated 154 mg/dl; Potassium 4.4 mmol/L (3.3-5.1); Sodium 142 mmol/L (135-145); Total Protein 8.1 g/dL (6.5-8.0); Triglycerides 189 mg/dL
[2022-12-24 12:06] LABS: Thyroid Stimulating Hormone 1.19 uIU/mL (0.32-4.0)
== END 2022-12-24 10:39 | disposition home or self-care (01) ==
LOC: HO.LAB 10:38
PROVIDERS: PCP Internal Medicine; Visit Provider Internal Medicine
DX: E78.5 Hyperlipidemia, unspecified (principal); D64.9 Anemia, unspecified; N28.9 Disorder of kidney and ureter, unspecified; E03.9 Hypothyroidism, unspecified
CPT/HCPCS: 36415; 80053; 80061; 84443; 85025

== ENCOUNTER 2023-03-30 09:12 | Outpatient (AMB) | payer OTHER, SELFPAY ==
--- NOTE | 2023-03-30 09:12 | MHC.OFFVIS ---
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 She is not due for Pap her last Pap was negative in 2021. She gets yearly mammograms and does not have to go back every 6 months like she was doing for a while. She said she was not sure if she needed to be worried about STIs but she says her did step out on her for 3 months during the past year so testing would be recommended. She said sometime she was having some urinary urgency and burning but then she would drink cranberry juice and it would get better and she she has not had the symptoms for 3 weeks. She noticed the symptoms after she saw her primary in December so she did not think to communicate with him. 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 She is back with her and they are getting marriage counseling. She does not really exercise other than work. [facility] Medical History (Updated 03/30/23 @ 10:01 by Mylene Benjamin CNM) Chronic GERD History of gallbladder disease Surgical History History of cholecystectomy Family History Mother No problems noted. Father No problems noted. Sister Mental health disorder Substance use disorder Social History Housing: House Alcohol intake: never Patient Tobacco Use Status: Never used Tobacco e-Cigarette/Vaping Use: Never Used Second Hand Smoke Exposure: No service: No Current occupational status: employed Cognitive needs: No Hearing needs: No Vision needs: Yes (glasses) Female Reproductive History Menstrual Age of Menarche: 16 Menopause type: natural Total pregnancies: 0 Date of last pap smear: 01/17/20 (neg pap and hpv) Date of Mammogram: 12/01/22 (Birad 1) Physical Exam Vital Signs: Last Vital Signs BP 120/82 03/30/23 09:13 BMI result Body Mass Index 29.1 Const General: healthy appearing, comfortable, no acute distress, well developed and alert Nutritional Appearance: average body habitus Orientation/consciousness: patient oriented x3 Limitations: no limitations HEENT Head: Yes normocephalic Neck Neck: Yes normal visual inspection Thyroid: Thyroid normal Chest Chest palpation & inspection: normal inspection of the chest Breast/axilla inspection: normal inspection of the breasts and normal inspection of the axillae Breast/axilla palpation: normal palpation of the breasts and normal palpation of the axillae Resp Effort & Inspection: normal respiratory effort GI Inspection: Yes normal to inspection, No Abdominal wall edema and No distended Palpation (GI): Soft to palpation and nontender Other: consistent with postmenopausal changes and vaginal atrophy vagina is pink and moist cervix small tiny nulliparous pink and smooth, some smooth bumps on late be majora consistent with lipomas. Uterus is slightly difficult to palpate secondary to postmenopausal atrophy. Good tone with Kegel. General: Yes bladder normal to palpation External Female Exam: normal external appearance and normal appearance of the urethra Speculum Exam - Vagina: normal appearance of the vagina, normal palpation and normal vaginal discharge Speculum Exam - Cervix: normal appearance of the cervix, normal palpation and nontender Bimanual exam- vagina & uterus: normal bimanual exam, normal palpation, uterine size normal, bladder normal to palpation, consistency normal, normal palpation, uterine mobility normal, uterine shape normal, No Cervical tenderness present, non-tender and no cervical motion tenderness Bimanual Exam- Adnexa, other: normal adnexae, no masses, normal and No adnexal tenderness Neuro General: patient oriented x3 Results AMB Urinalysis, Automated UA Leukoctes 0.5 Loki/uL Last Edit by BABATUNDE Abdalla on 03/30/23 09:26 UA Nitrite Negative Last Edit by BABATUNDE Abdalla on 03/30/23 09:26 UA Urobilinogen 0 mg/dL Last Edit by Soniya Beck A on 03/30/23 09:26 UA Protein 1 mg/dL Last Edit by Soniya Beck [facility] on 03/30/23 09:26 UA pH 5.0 Last Edit by Soniya Beck [facility] on 03/30/23 09:26 UA Blood 2 Mike/uL Last Edit by Soniya Beck [facility] on 03/30/23 09:26 UA Specific [place] 1.025 Last Edit by Soniya Beck [facility] on 03/30/23 09:26 UA Ketone Positive Last Edit by Soniya Beck [facility] on 03/30/23 09:26 trace Soniya Beck 03/30/23 09:26 UA Bilirubin 0 mg/dL Last Edit by Soniya Beck [facility] on 03/30/23 09:26 UA Glucose 0 mg/dL Last Edit by Soniya Beck [facility] on 03/30/23 09:26 Results Reviewed Results Reviewed: Laboratory Last Values Urine pH (Auto) 5.0 03/30/23 09:25 Specific [place] (Auto) 1.025 03/30/23 09:25 Urine Protein (Auto) 1 mg/dL 03/30/23 09:25 Glucose (UA)(Auto) 0 mg/dL 03/30/23 09:25 Urine Ketones (Auto) Positive 03/30/23 09:25 Urine Blood (Auto) 2 Mike/uL 03/30/23 09:25 Urine Nitrite (Auto) Negative 03/30/23 09:25 Urine Bilirubin (Auto) 0 mg/dL 03/30/23 09:25 Urine Urobilinogen (Auto) 0 mg/dL 03/30/23 09:25 Leukocyte Esterase (Auto) 0.5 Loki/uL 03/30/23 09:25 Assessment & Plan Assessment & Plan (1) Cervical cancer screening: Comment: pap neg 2019, no hx abnls Code(s): Z12.4 - Encounter for screening for malignant neoplasm of cervix (2) Women's annual routine gynecological examination: Code(s): Z01.419 - Encounter for gynecological examination (general) (routine) without abnormal findings (3) Screen for sexually transmitted diseases: Code(s): Z11.3 - Encounter for screening for infections with a predominantly sexual mode of transmission Plan -----Discussed in this visit the following: healthy balanced diet, regular and consistent exercise, getting recommended health screens, doing the best she can for her particular health concerns, kegel exercises, pap smear screening and followup recommendations, mammography screening and SBE, normal changes in cycles in her life stage--- . teaching done about the difference between UTIs and other vaginal symptoms given her possible exposures this year I offered testing for STIs as well as blood work for STIs which she will consider doing if she can work up the courage to get a needle in her arm. Discussed following up with primary care for any symptoms of a UTI and requesting a clean-catch urine be ordered if she does have return of any symptoms. Discussed also that many times we can help ourselveswith cranberry juice discussed sugar free cranberry juice. She believes she is getting plenty of calcium in her diet. Discussed the value of adding exercise and stretching into her self-care especially as we get older. She recounted how she recently fell on her parents ramp into her house because of black ice. Recent mammograms were negative. To follow-up with her primary care provider and RTC 1 year.. Orders: Orders AMB Urinalysis Automated Today R35.0 - Frequency of micturition Bacterial Vaginosis Panel Today N89.8 - Other specified noninflammatory disorders of vagina CT NG by PCR Today N89.8 - Other specified noninflammatory disorders of vagina HIV Ab/Ag Today Z01.419 - Encounter for gynecological examination (general) (routine) without abnormal findings, Z11.3 - Encounter for screening for infections with a predominantly sexual mode of transmission, Z12.4 - Encounter for screening for malignant neoplasm of cervix Syphilis Screen Today Z01.419 - Encounter for gynecological examination (general) (routine) without abnormal findings, Z11.3 - Encounter for screening for infections with a predominantly sexual mode of transmission, Z12.4 - Encounter for screening for malignant neoplasm of cervix Hepatitis B Surface Antigen Today Z01.419 - Encounter for gynecological examination (general) (routine) without abnormal findings, Z11.3 - Encounter for screening for infections with a predominantly sexual mode of transmission, Z12.4 - Encounter for screening for malignant neoplasm of cervix Hepatitis C Antibody Today Z.419 - Encounter for gynecological examination (general) (routine) without abnormal findings, Z11.3 - Encounter for screening for infections with a predominantly sexual mode of transmission, Z12.4 - Encounter for screening for malignant neoplasm of cervix Coding Level of Care Code Est Pt Prev Care 40-64y(92156) Diagnoses Cervical cancer screening Z12.4 Women's annual routine gynecological examination Z01.419 Screen for sexually transmitted diseases Z11.3
[2023-03-30 09:13] VITALS: BP 120/82; BMI 29.1
== END 2023-03-30 10:02 | disposition home or self-care (01) ==
LOC: HO.HWS 09:12
PROVIDERS: PCP Internal Medicine; Visit Provider Advanced Practice Midwife
DX: Z12.4 Encounter for screening for malignant neoplasm of cervix (principal); Z01.419 Encounter for gynecological examination (general) (routine) without abnormal findings; Z11.3 Encounter for screening for infections with a predominantly sexual mode of transmission; R35.0 Frequency of micturition
CPT/HCPCS: 99396

== ENCOUNTER 2023-03-30 09:12 | Outpatient (REF) | payer OTHER, SELFPAY ==
[2023-03-30 12:32] LABS: CT PCR NOT DETECTED (Not Detect.); NG PCR NOT DETECTED (Not Detect.)
[2023-03-31 10:09] LABS: BV Int Neg Control Negative (Negative); BV Int Pos Control Positive (Positive)
== END 2023-03-30 09:13 | disposition home or self-care (01) ==
LOC: HO.LAB 09:12
PROVIDERS: PCP Internal Medicine; Visit Provider Advanced Practice Midwife
DX: Z01.419 Encounter for gynecological examination (general) (routine) without abnormal findings (principal); N89.8 Other specified noninflammatory disorders of vagina; R35.0 Frequency of micturition; Z20.2 Contact with and (suspected) exposure to infections with a predominantly sexual mode of transmission
CPT/HCPCS: 0353U; 81003; 87480; 87510; 87660

== ENCOUNTER 2023-03-30 09:51 | Outpatient (REF) | payer OTHER, SELFPAY | END 2023-03-30 09:52 | disposition home or self-care (01) | LOC: HO.LNP 09:51 | PROVIDERS: Visit Provider Advanced Practice Midwife | DX: Z13.89 Encounter for screening for other disorder (principal) ==

== ENCOUNTER 2023-05-12 14:36 | Outpatient (REF) | payer OTHER, SELFPAY ==
[2023-05-13 08:15] LABS: HBsAGNum1 0.34 S/CO (0.00-0.99); HIV AB/AG Nonreactive (Nonreactive); HIV Num 1 0.05 S/CO (0.00-0.99); Hepatitis B Surface Antigen Negative (Negative); ~HepC Num1 0.14 S/CO (0.00-0.79); ~Hepatitis C Antibody Nonreactive (Nonreactive)
[2023-05-13 08:16] LABS: Syphilis Screen Nonreactive (Nonreactive)
== END 2023-05-12 14:37 | disposition home or self-care (01) ==
LOC: HO.HMGCLDS 14:36
PROVIDERS: Visit Provider Advanced Practice Midwife
DX: Z20.2 Contact with and (suspected) exposure to infections with a predominantly sexual mode of transmission (principal); Z11.4 Encounter for screening for human immunodeficiency virus [HIV]
CPT/HCPCS: 36415; 86780; 86803; 87340; 87389

== ENCOUNTER 2023-12-08 11:24 | Outpatient (REF) | payer OTHER, SELFPAY ==
--- NOTE | ~2023-12-08 | MM_ITS ---
EXAMINATION: MM SCREENING DIGITAL BREAST TOMOSYNTHESIS, BILATERAL CLINICAL INFORMATION: Screening. Asymptomatic. COMPARISON: Mammography: This study is compared with prior exams dating back to 2015. TECHNIQUE: Digital breast tomosynthesis is performed in both the craniocaudal and mediolateral oblique views along with computer-aided detection (CAD). Synthesized 2D images are generated from the tomosynthesis. FINDINGS: There are scattered areas of fibroglandular density (ACR BI-RADS breast composition Category b). There are no significant masses, abnormal calcifications, or other abnormalities. MM/MM tomosynthesis screening BI IMPRESSION: No mammographic evidence of malignancy. ASSESSMENT: BI-RADS BI-RADS 1 - Negative RECOMMENDATION: Routine annual mammography screening. 1 year F/U This examination should not preclude the clinical evaluation of a suspicious palpable abnormality. This patient's information was entered into a reminder system with a target due date for their next mammogram.
== END 2023-12-08 11:25 | disposition home or self-care (01) ==
LOC: HO.MAMMO 11:24
PROVIDERS: PCP Internal Medicine; Visit Provider Internal Medicine
DX: Z12.31 Encounter for screening mammogram for malignant neoplasm of breast (principal)
CPT/HCPCS: 77063; 77067

== ENCOUNTER → 2023-12-08 11:30 | Outpatient (BNV) | payer OTHER, SELFPAY | PROVIDERS: PCP Internal Medicine; Visit Provider Radiology Diagnostic Radiology | DX: Z12.31 Encounter for screening mammogram for malignant neoplasm of breast (principal) | CPT/HCPCS: 77063; 77067 ==

== ENCOUNTER 2023-12-29 09:50 | Outpatient (AMB) | payer OTHER, SELFPAY ==
[2023-12-29 09:52] VITALS: BP 118/70; PULSE 98; O2SAT 95; BMI 29.1
--- NOTE | 2023-12-29 09:52 | MHC.PC.OV ---
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 Accompanied by: Self / Same As Patient Allergies acetaminophen [From PERCOCET] Allergy (Unknown, Verified 12/29/23 09:53) NAUSEA/VOMITING avocado [AVOCADO] Allergy (Unknown, Verified 12/29/23 09:53) ANAPHYLAXIS oxycodone [From PERCOCET] Allergy (Unknown, Verified 12/29/23 09:53) NAUSEA/VOMITING percocet Allergy (Unknown, Uncoded 12/29/23 09:53) severe vomiting Medication List - Last Reconciled 12/29/23 by Darryl Clark MD multivitamin 1 tab PO DAILY omeprazole 20 mg PO BID 14 days psyllium husk (Daily Fiber) 0.52 grams PO DAILY Tobacco use date assessed: 12/24/22 Dental Screening Dental Screen Date: 12/29/23 Did you have a dental visit in the last 12 months?: No Did you have a dental problem in the last 6 months where you did not have access to dental care?: No Was dental information given to patient?: Patient has dentist HPI pe HPI Details healthy; due for colonoscopy [facility] Medical History (Updated 03/30/23 @ 10:01 by Mylene Benjamin CNM) Chronic GERD History of gallbladder disease Surgical History History of cholecystectomy Family History Mother No problems noted. Father No problems noted. Sister Mental health disorder Substance use disorder Social History Housing: House Alcohol intake: never Patient Tobacco Use Status: Never used Tobacco Tobacco use type: Cigarette e-Cigarette/Vaping Use: Never Used Second Hand Smoke Exposure: No service: No Current occupational status: employed Cognitive needs: No Hearing needs: No Vision needs: Yes (glasses) Female Reproductive History Menstrual Age of Menarche: 16 Questionnaire PHQ-9 Over the last 2 weeks, how often have you been bothered by any of the following problems? 1. Little interest or pleasure in doing things: not at all 2. Feeling down, depressed, or hopeless: not at all 3. Trouble falling or staying asleep, or sleeping too much: not at all 4. Feeling tired or having little energy: not at all 5. Poor appetite or overeating: not at all 6. Feeling bad about yourself - or that you are a failure or have let yourself or your family down: not at all 7. Trouble concentrating on things, such as reading the newspaper or watching television: not at all 8. Moving or speaking so slowly that other people could have noticed. Or the opposite - being so fidgety or restless that you have been moving around a lot more than usual: not at all 9. Thoughts that you would be better off or of hurting yourself in some way: not at all Total score: 0 Depression Screening Interpretation: Negative Depression Screening Done: Yes 80119 - PHQ-9 Billing: Yes Source: Developed by Drs. Jordin Leon, Letty Ray, Eliu Mitchell and colleagues, with an educational enedina from [employer]. Thrive Questionnaire Date Thrive assessed: 12/29/23 I am a: Patient What is your living situation today?: I have a steady place to live Within the past 12 months, did the food you bought not last and you didn't have the money to get more?: Never true Within the past 12 months, did you worry whether your food would run out before you got money to buy more?: Never true Do you have trouble paying for medicines?: No Do you have trouble getting transportation to medical appointments?: No Do you have trouble paying your heating and electricity bill?: No Do you have trouble taking care of your child, family member or friend?: No Do you have trouble with day-to-day activities such as bathing, preparing meals, shopping, managing finances, etc.?: No Are you currently unemployed and looking for a job?: No Are you interested in more education?: No THRIVE Score: 0 AUDIT C Alcohol Use Questionnaire (AUDIT-C) 1. How often do you have a drink containing alcohol?: Never 2. How many drinks containing alcohol do you have on a typical day when you are drinking?: 1 or 2 Total Score: 0 Score Reviewed/Action Taken: Yes LELAND-7 AMB Questionnaire LELAND-7 Date LELAND - 7 assessed: 12/29/23 Feeling nervous, anxious, or on edge: 0 = Not at all Not being able to stop or control worryin = Not at all Worrying too much about different things: 0 = Not at all Trouble relaxin = Not at all Being so restless that it is hard to sit still: 0 = Not at all Becoming easily annoyed or irritable: 0 = Not at all Feeling afraid as if something awful might happen: 0 = Not at all Total LELAND-7 score (0-4 normal; 5-9 mild; 10-14 moderate; 15-21 severe): 0 Source: Developed by Drs. Jordin Leon, Letty Ray, Eliu Mitchell and colleagues, with an educational enedina from [employer]. LELAND-7 Assessment Billing LELAND-7 Assessment Tool: LELAND-7 Assessment 86558 Review of Systems Const Denies chills, Denies fatigue, Denies headache(s) and Denies weight loss Eyes Denies change in vision, Denies diplopia and Denies eye pain ENT Denies vertigo, Denies dizziness, Denies headache(s) and Denies nasal discharge Card Denies chest pain, Denies rapid heart rate and Denies dyspnea on exertion Resp Denies chest congestion, Denies cough, Denies pain with cough and Denies dyspnea on exertion GI Denies abdominal pain, Denies hematochezia and Denies change in bowel habits Musc Denies myalgias, Denies arthralgias and Denies joint swelling Skin/Breast Denies lesions and Denies unusual bruising Neuro Denies vertigo, Denies dizziness, Denies headache(s) and Denies focal weakness Endo Denies fatigue Physical exam (Primary Care) Vital Signs: Last Vital Signs Pulse 98 12/29/23 09:52 BP 118/70 12/29/23 09:52 Pulse Ox 95 12/29/23 09:52 Oxygen Delivery Method Room Air 12/29/23 09:52 BMI result Body Mass Index 29.1 Tobacco/Smoking Status: Tobacco use Status Tobacco use date assessed 12/24/22 12/29/23 09:52 Patient Tobacco Use Status Never used Tobacco 12/29/23 09:52 Tobacco use type Cigarette 12/29/23 10:01 e-Cigarette/Vaping Use Never Used 12/29/23 09:52 PHQ-9: PHQ-9 Score PHQ-9: Total score 0 12/29/23 10:01 Depression Screening Interpretation: Negative Thrive Assessment: Date of Thrive Assessment Date Thrive assessed 12/29/23 12/29/23 10:01 Const General: cooperative, healthy appearing and no acute distress Orientation/consciousness: oriented to person, oriented to place and oriented to time HENMT Head: Yes normal to inspection, Yes normocephalic and Yes atraumatic Mouth: Normal oral and palatal mucosa present and tongue normal Throat: Yes posterior oropharynx normal and Yes uvula midline Eyes General: appearance normal, both eyes and all related structures Neck Neck: Yes normal visual inspection, Yes full ROM and Yes no lymphadenopathy Thyroid: Thyroid normal Carotids: normal carotid upstroke Chest Chest palpation & inspection: normal inspection of the chest Resp Effort & Inspection: normal respiratory effort and able to speak in complete sentences Auscultation: clear to auscultation bilaterally Cardio Jugular venous distension: no JVD Palpation: normal PMI Rate: regular rate Rhythm: regular rhythm Heart sounds: S1 normal heart sound present and S2 normal heart sound present GI Inspection: Yes normal to inspection Palpation (GI): Soft to palpation and No hepatosplenomegaly present Auscultation: normal bowel sounds General: Yes no CVA tenderness Back/Spine/Pelvis Back: no CVA tenderness Skin General skin exam: no rashes or lesions noted Neuro General: oriented to person, oriented to place and oriented to time Extrem General: Yes normal to inspection and Yes full ROM Assessment and Plan Assessment & Plan (1) Physical exam: Code(s): Z00.00 - Encounter for general adult medical examination without abnormal findings Plan: healthy; labs and colonoscopy Orders: Orders Lipid Panel Today Z13.220 - Encounter for screening for lipoid disorders Complete Blood Count Auto Diff Today Z13.0 - Encounter for screening for diseases of the blood and blood-forming organs and certain disorders involving the immune mechanism Comprehensive Philpot. Panel Fast Today Z13.9 - Encounter for screening, unspecified Thyroid Stimulating Hormone Today Z13.29 - Encounter for screening for other suspected endocrine disorder Referrals Gastroenterology Referral Z12.11 - Encounter for screening for malignant neoplasm of colon Medications: Refilled omeprazole 20 mg PO BID 14 days 28 caps 0RF Coding Level of Care Code Est Pt Prev Care 40-64y(06366) Diagnoses Physical exam Z00.00 Additional Codes LELAND-7 Assessment Billing - LELAND-7 Assessment Tool: LELAND-7 Assessment 12024 ([id number])
== END 2023-12-29 10:14 | disposition home or self-care (01) ==
PROVIDERS: PCP Internal Medicine; Visit Provider Internal Medicine
DX: Z00.00 Encounter for general adult medical examination without abnormal findings (principal)
CPT/HCPCS: 99396

== ENCOUNTER 2024-02-17 12:10 | Outpatient (REF) | payer OTHER, SELFPAY ==
[2024-02-17 12:30] LABS: MANUAL DIFF FLAG NO
[2024-02-17 12:47] LABS: Basophils Absolute Auto 0.1 X10*3/uL (0.0-0.2); Basophils Percent Auto 1.1 % (0-2); Eosinophils Absolute Auto 0.4 X10*3/uL (0.0-0.4); Eosinophils Percent Auto 6.4 % (0-4); Hemoglobin 12.6 g/dl (12.0-16.0); Imm Gran Abs Auto 0.01 X10*3/uL (0.00-0.03); Imm Gran Pct Auto 0.2 % (0.0-0.4); Lymphocytes Absolute Auto 1.9 X10*3/uL (1.2-4.9); Lymphocytes Percent Auto 34.6 % (20-40); Mean Corpuscular HGB Conc 33.2 g/dl (31.0-35.0); Mean Corpuscular Hemoglobin 28.4 pg (27.0-33.0); Mean Corpuscular Volume 85.6 fL (80.0-98.0); Mean Platelet Volume 9.8 fL (9.4-12.3); Monocytes Absolute Auto 0.4 X10*3/uL (0.1-1.2); Neutrophils Absolute Auto 2.7 x10*3/uL (2.0-8.3); Neutrophils Percent Auto 49.7 % (45-73); Platelet Count 329 X10*3/uL (160-400); Red Blood Count 4.44 X10*6/uL (4.20-5.50); White Blood Count 5.5 X10*3/uL (4.8-10.8)
[2024-02-17 13:38] LABS: Alanine Aminotransferase 48 U/L (0-31); Albumin Level 4.1 g/dL (3.5-5.0); Alkaline Phosphatase 75 U/L (39-117); Anion Gap 12 (12-20); Aspartate Amino Transferase 28 U/L (5-31); Bilirubin Total 0.5 mg/dL (0.0-1.0); Blood Urea Nitrogen 13 mg/dL (9-16); Calcium 9.4 mg/dL (8.4-10.2); Carbon Dioxide 25 mmol/L (22-29); Chloride 110 mmol/L (96-108); Cholesterol 230 mg/dL (<200); Estimated Glomerular Filt Rate > 60; Glucose Fasting 99 mg/dL (60-99); HDL Cholesterol 51 mg/dL (>40); LDL Cholesterol Calculated 129 mg/dL (<100); Potassium 4.4 mmol/L (3.3-5.1); Sodium 143 mmol/L (135-145); Total Protein 7.9 g/dL (6.5-8.0); Triglycerides 251 mg/dL (<150)
[2024-02-17 13:39] LABS: Thyroid Stimulating Hormone 1.63 uIU/mL (0.32-4.0)
== END 2024-02-17 12:11 | disposition home or self-care (01) ==
LOC: HO.LAB 12:10
PROVIDERS: PCP Internal Medicine; Visit Provider Internal Medicine
DX: Z13.220 Encounter for screening for lipoid disorders (principal); Z13.0 Encounter for screening for diseases of the blood and blood-forming organs and certain disorders involving the immune mechanism; Z13.29 Encounter for screening for other suspected endocrine disorder; Z13.9 Encounter for screening, unspecified
CPT/HCPCS: 36415; 80053; 80061; 84443; 85025

== ENCOUNTER 2024-04-01 11:26 | Outpatient (AMB) | payer OTHER, SELFPAY ==
[2024-04-01 11:28] VITALS: BP 118/70; BMI 29.1
--- NOTE | 2024-04-01 11:28 | A.OFFVIS_ITS ---
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 Information Interpreted: clinical only Driver Starting Gate: Driver Starting Gate Present Allergies acetaminophen [From PERCOCET] Allergy (Unknown, Verified 04/01/24 11:30) NAUSEA/VOMITING avocado [AVOCADO] Allergy (Unknown, Verified 04/01/24 11:30) ANAPHYLAXIS oxycodone [From PERCOCET] Allergy (Unknown, Verified 04/01/24 11:30) NAUSEA/VOMITING percocet Allergy (Unknown, Uncoded 04/01/24 11:30) severe vomiting Medication List - Last Reconciled 04/01/24 by Mylene Benjamin CNM multivitamin 1 tab PO DAILY omeprazole 20 mg PO BID 14 days psyllium husk (Daily Fiber) 0.52 grams PO DAILY Post menopausal: Yes (2021) HPI HPI 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 She got fully tested last year for STDs though she could not see the results of HIV testing etc. in the portal. Patient has a basal cell carcinoma that was found by biopsy under her right nostril in the corner she had been asking for to be evaluated for 3 years finally assertively got an appointment for herself and when it was biopsied- that is what it was there was. a Mohs surgery is planned for June. She is postmenopausal, she is not currently sexually active. Sometimes she has some dysuria when she urinates not today but the last time was a couple of days ago she would like a UA C&S just to check for UTI. She is up-to-date on her mammogram she got those summer And she has had her other blood work with her doctor. [facility] Medical History Chronic GERD History of gallbladder disease Surgical History History of cholecystectomy Family History Mother No problems noted. Father No problems noted. Sister Mental health disorder Substance use disorder Social History (Reviewed 04/01/24 @ 11:31 by Doe Hall CMAStanislaw Housing: House Alcohol intake: never Patient Tobacco Use Status: Never used Tobacco Tobacco use type: Cigarette e-Cigarette/Vaping Use: Never Used Second Hand Smoke Exposure: No service: No Current occupational status: employed Cognitive needs: No Hearing needs: No Vision needs: Yes (glasses) Female Reproductive History Menstrual Age of Menarche: 16 control method: none Total pregnancies: 0 Date of last pap smear: 01/17/20 (negative) History of abnormal pap smear: No Date of Mammogram: 12/08/23 (negative) Physical Exam Vital Signs: Last Vital Signs BP 118/70 04/01/24 11:28 BMI result Body Mass Index 29.1 Const General: healthy appearing, comfortable, no acute distress, well developed and alert Nutritional Appearance: average body habitus Orientation/consciousness: patient oriented x3 Limitations: no limitations HEENT Head: Yes normocephalic Neck Neck: Yes normal visual inspection Chest Chest palpation & inspection: normal inspection of the chest Breast/axilla inspection: normal inspection of the breasts and normal inspection of the axillae Breast/axilla palpation: normal palpation of the breasts and normal palpation of the axillae Resp Effort & Inspection: normal respiratory effort GI Inspection: Yes normal to inspection, No Abdominal wall edema and No distended Palpation (GI): Soft to palpation and nontender Other: External exam within normal limits evidence of small folliculitis at hair follicles from shaving. Vulva within normal limits postmenopausal changes noted vagina type atrophic cervix flattened nulliparous at apex cervix mobile nontender small uterus difficult to palpate atrophic good tone with Kegel. General: Yes bladder normal to palpation External Female Exam: normal external appearance and normal appearance of the urethra Speculum Exam - Vagina: normal appearance of the vagina, normal palpation and normal vaginal discharge Speculum Exam - Cervix: normal appearance of the cervix, normal palpation and nontender Bimanual exam- vagina & uterus: normal bimanual exam, normal palpation, uterine size normal, bladder normal to palpation, consistency normal, normal palpation, uterine mobility normal, uterine shape normal, No Cervical tenderness present, non-tender and no cervical motion tenderness Bimanual Exam- Adnexa, other: normal adnexae, no masses, normal and No adnexal tenderness Neuro General: patient oriented x3 Assessment & Plan Assessment & Plan (1) Women's annual routine gynecological examination: Code(s): Z01.419 - Encounter for gynecological examination (general) (routine) without abnormal findings Category: Medical (2) Cervical cancer screening: Comment: pap neg 2019, no hx abnls Code(s): Z12.4 - Encounter for screening for malignant neoplasm of cervix Category: Medical (3) Skin lesion: Comment: ref to derm; basal cell CA-awaiting Mohs surgery 07/12. Code(s): L98.9 - Disorder of the skin and subcutaneous tissue, unspecified Category: Medical Plan -----Discussed in this visit the following: healthy balanced diet, regular and consistent exercise, getting recommended health screens, doing the best she can for her particular health concerns, kegel exercises, pap smear screening and followup recommendations, mammography screening and SBE, normal changes in cycles in her life stage--- . her next Pap smear will be due next year she has no concerns about STIs I reviewed her past HIV and other testing ---was done in 2022 which was negative. She tried to submit a clean-catch urine but it was not sufficient to send, so she will follow-up with her primary care provider if her symptoms continue they are sporadic. Discussed postmenopausal changes and discussed her upcoming Mohs surgery for her basal cell carcinoma under her right nostril. RTC 1 year with Pap I also reviewed her other labs including cholesterol that was elevated and fasting blood sugar that was 99. Coding Level of Care Code Est Pt Prev Care 40-64y(37539) Diagnoses Women's annual routine gynecological examination Z01.419 Cervical cancer screening Z12.4 Skin lesion L98.9
== END 2024-04-01 12:17 | disposition home or self-care (01) ==
PROVIDERS: PCP Internal Medicine; Visit Provider Advanced Practice Midwife
DX: Z01.419 Encounter for gynecological examination (general) (routine) without abnormal findings (principal); Z12.4 Encounter for screening for malignant neoplasm of cervix; L98.9 Disorder of the skin and subcutaneous tissue, unspecified
CPT/HCPCS: 99396

== ENCOUNTER 2024-05-14 15:14 | Emergency (ER) | payer OTHER, SELFPAY ==
[2024-05-14] VITALS (11 sets, daily range): BP systolic 91–154; BP diastolic 45–83; PULSE 100–119; RESP 20–29; TEMP 37.1–39.4; O2SAT 94–99; BMI 28.9
--- NOTE | ~2024-05-14 | XR_ITS ---
CLINICAL HISTORY: ?rll pneumonia 2 view chest x-ray Comparison: Chest CT from 05/04/2022 Findings: Pulmonary opacities particularly in the lateral imaged concerning for pneumonia. Emphysematous changes are redemonstrated. Likely small right pleural effusion. No pneumothorax. Cardiac silhouette and mediastinal contours are within normal limits. Degenerative changes include the imaged shoulders. Likely bone island of the proximal left humerus. IMPRESSION: 1. Small right pleural effusion. 2. Pulmonary opacities concerning for pneumonia, including right lung base. This document has been electronically signed by: Himanshu Dong MD on 05/14/2024 21:46:53
--- NOTE | ~2024-05-14 | US_ITS ---
CLINICAL HISTORY: abd pain, N V, elevated bili and liver enzymes US abdomen limited Comparison: None Findings: Majority of the pancreas obscured by bowel gas. Increased echogenicity of the imaged liver concerning for steatotic change. Imaged liver measures 15 cm by ultrasound. Imaged CBD is nondilated measuring 0.4 cm diameter. Portions of the right kidney obscured by side of the artifacts. Imaged right kidney measures 11.8 cm long axis without hydronephrosis. 1 cm cyst of imaged right kidney inferiorly and 1.5 cm cyst of the upper portion of the right kidney suggested but partly obscured. The gallbladder is surgically absent. No suspicious fluid collection in the cholecystectomy bed. No right upper quadrant ascites or right pleural effusion in the [id number] accounting for artifacts. Imaged IVC is unremarkable. Aorta is obscured by overlying bowel gas. IMPRESSION: Imaged CBD is nondilated post cholecystectomy. This document has been electronically signed by: Himanshu Dong MD on 05/14/2024 21:34:47
--- NOTE | 2024-05-14 15:42 | ED.GENADULT ---
HPI - General Adult General Chief complaint: General Medical Stated complaint: high fever since the AM/neck pain/headache Time Seen by Provider: 05/14/24 20:00 Source: patient Mode of arrival: ambulatory Limitations: no limitations History of Present Illness ED Provider: HPI narrative: Patient has been complaining of headache body ache cough nausea generalized weakness for last 3 4 days with fever of 102-103 at home been coughing a lot no nobody else was positive for COVID not eating well cough is mostly dry but sometimes she expectorate mucus unable to drink or eat much today feels exhausted Related Data Home Medications ?Medication ?Instructions ?Recorded ?Confirmed multivitamin 1 tab PO DAILY 12/20/20 04/01/24 psyllium husk 0.52 gram capsule 0.52 g PO DAILY 12/20/20 04/01/24 (Daily Fiber) Previous Rx's ?Medication ?Instructions ?Recorded omeprazole 20 mg capsule,delayed 20 mg PO BID 14 days #28 caps 12/29/23 release albuterol sulfate 90 mcg/actuation 2 puff inhalation Q6H PRN 05/15/24 aerosol inhaler shortness of breath or wheezing #8.5 grams azithromycin 500 mg tablet 500 mg PO DAILY 3 days #3 tabs 05/15/24 (Zithromax TRI-LIAM) cefpodoxime 200 mg tablet 200 mg PO BID #20 tabs 05/15/24 guaifenesin 600 mg tablet, 600 mg PO BID #20 tabs 05/15/24 extended release 12 hr Allergies Allergy/AdvReac Type Severity Reaction Status Date / Time avocado [AVOCADO] Allergy Unknown ANAPHYLAXIS Verified 05/14/24 15:44 oxycodone [From PERCOCET] Allergy Unknown NAUSEA/VOMI Verified 05/14/24 15:44 TING percocet Allergy Unknown severe Uncoded 04/01/24 11:30 vomiting Review of Systems Review of Systems: Yes all other systems are reviewed and are negative PMFSH Past Medical History Medical History Chronic GERD History of gallbladder disease Surgical History History of cholecystectomy Family History Family History Mother No problems noted. Father No problems noted. Sister Mental health disorder Substance use disorder Social History Social History Housing: House Alcohol intake: never Patient Tobacco Use Status: Never used Tobacco Tobacco use type: Cigarette e-Cigarette/Vaping Use: Never Used Second Hand Smoke Exposure: No service: No Current occupational status: employed Cognitive needs: No Hearing needs: No Vision needs: Yes (glasses) Physical Exam ED Vital Signs: Vital Signs - 24 hr 05/14/24 15:39 05/14/24 20:30 05/14/24 20:54 Temperature 99.9 F 103.0 F H Pulse Rate 100 101 H 111 H Respiratory Rate 20 21 H 28 H Blood Pressure 154/76 H 139/83 Pulse Oximetry 99 97 Oxygen Delivery Method Room Air Room Air 05/14/24 21:10 05/14/24 21:41 05/14/24 22:00 Temperature 102.9 F H 100.5 F H 100.5 F H Pulse Rate 119 H 116 H 111 H Respiratory Rate 22 H 29 H 26 H Blood Pressure 138/63 111/51 L 91/45 L Pulse Oximetry 99 94 95 Oxygen Delivery Method Room Air Room Air Room Air 05/14/24 22:02 05/14/24 22:10 05/14/24 22:25 Temperature 100.5 F H 98.7 F 98.8 F Pulse Rate 109 H 104 H 103 H Respiratory Rate 28 H 24 H 20 Blood Pressure 97/46 L 97/46 L 93/46 L Pulse Oximetry 95 96 95 Oxygen Delivery Method Room Air Room Air Room Air 05/14/24 22:40 05/14/24 22:55 05/15/24 00:04 Temperature 98.7 F 98.7 F 98.2 F Pulse Rate 101 H 101 H 89 Respiratory Rate 20 21 H 24 H Blood Pressure 99/48 L 94/56 L 104/60 Pulse Oximetry 96 96 94 Oxygen Delivery Method Room Air Room Air Room Air 05/15/24 00:10 05/15/24 00:30 Temperature 98.0 F Pulse Rate 89 89 Respiratory Rate 22 H 18 Blood Pressure 111/61 111/61 Pulse Oximetry 95 95 Oxygen Delivery Method Room Air Room Air BMI result Body Mass Index 28.9 Appearance: Alert. Oriented X3. No acute distress. Eyes: PERRLA, No Nystagmus ENT: Pharynx normal. Oral Mucosa moist Neck: Normal inspection. Neck supple. CVS: Normal heart rate and rhythm. Pulses normal. Respiratory: No respiratory distress. Equal air entry bilateral, bilateral rales at the bases right more than left Abdomen: Soft and nontender. Bowel sounds are present, no mass palpable, no CVA tenderness Skin: Skin warm and dry. Normal skin color. Normal skin turgor. Extremities: No lower extremity edema. No calf tenderness Neuro: Oriented X 3. No motor deficit. No sensory deficit.No cerebellar signs , cranial nerves II-XII intact Course Course Course Narrative: This is a Rapid Medical Examination (RME) performed by Alberto Sharp PA-C in triage. Full HPI, ROS, assessment and treatment plan per primary provider in the Main ED. 59 yo female here for eval of multiple complaints. endorses headache, dizziness, neck pain, nausea without vomiting, fevers x3 days. TMAX 103F. unable to tolerate PO intake secondary to nausea. no known sick contacts. denies sore throat, abd pain, urinary sx, SOB/ chest pain. + low grade temp of 99F, took 2 tylenol around 1100. Plan: viral/ strep swabs, labs Medications Administered Discontinued Medications Generic Name Dose Route Start Last Admin Trade Name Freq PRN Reason Stop Dose Admin Acetaminophen 650 mg 05/14/24 20:25 05/14/24 20:34 Acetaminophen 325 Mg Tablet PO 05/14/24 20:26 650 mg ONCE ONE Administration Azithromycin 500 mg 05/14/24 22:55 05/14/24 23:01 Azithromycin 500 Mg Tablet PO 05/14/24 22:56 500 mg ONCE ONE Administration Ceftriaxone Sodium 1 gm 05/14/24 20:39 05/14/24 21:02 Ceftriaxone Sodium 1 Gm Vial IVPUSH 05/14/24 20:40 1 gm ONCE ONE Administration Albuterol Sulfate 2.5 mg/ 0 mg 05/14/24 20:25 05/14/24 20:31 Albuterol/Ipratropium 3 ml INHALE 05/14/24 20:26 1 dose ONCE ONE Administration Sodium Chloride 1,000 mls @ 999 mls/hr 05/14/24 20:25 05/14/24 21:49 Ns IV 05/14/24 21:25 Infused .Q1H1M ONE Infusion Ketorolac Tromethamine 30 mg 05/14/24 20:27 05/14/24 20:34 Ketorolac Tromethamine 30 Mg/Ml Vial IVPUSH 05/14/24 20:28 30 mg ONCE ONE Administration Medical Decision Making Medical Decision Making [facility] Narrative: Patient with right lower lobe pneumonia with stable vitals slightly elevated WBC count received IV Rocephin and p.o. Zithromax likely mycoplasma pneumonia patient is feeling much better taking p.o. fluids will like to go home discharge patient home on cefpodoxime and Zithromax Differential Diagnosis Differential Diagnoses: The differential diagnosis associated with the presentation includes Admission/Observation Consideration of admission/observation: Escalation of care including admission/observation considered Lab Data [facility] Lab Attestation statement: I reviewed the patient's lab results. 05/14/24 16:01 05/14/24 16:01 Labs: Lab Results 05/14/24 05/14/24 Range/Units 16:01 20:50 WBC 11.5 H (4.8-10.8) X10*3/uL RBC 4.18 L (4.20-5.50) X10*6/uL Hgb 11.9 L (12.0-16.0) g/dl Hct 34.6 L (37.0-47.0) % MCV 82.8 (80.0-98.0) fL MCH 28.5 (27.0-33.0) pg MCHC 34.4 (31.0-35.0) g/dl RDW 12.6 (11.0-16.0) % Plt Count 299 (160-400) X10*3/uL MPV 9.8 (9.4-12.3) fL Immature Gran % (Auto) 0.5 H (0.0-0.4) % Neut % (Auto) 84.8 H (45-73) % Lymph % (Auto) 6.0 L (20-40) % [place] % (Auto) 7.8 (2-11) % Eos % (Auto) 0.6 (0-4) % Baso % (Auto) 0.3 (0-2) % Lymph # (Auto) 0.7 L (1.2-4.9) X10*3/uL [place] # (Auto) 0.9 (0.1-1.2) X10*3/uL Eos # (Auto) 0.1 (0.0-0.4) X10*3/uL Baso # (Auto) 0.0 (0.0-0.2) X10*3/uL Abs Immat Gran (auto) 0.06 H (0.00-0.03) X10*3/uL Absolute Neuts (auto) 9.7 H (2.0-8.3) x10*3/uL Absolute Nucleated RBC 0.000 (0.0-0.012) X10*3/uL Nucleated RBC % (auto) 0.0 (0.0-0.2) /100WBC Sodium 133 L (135-145) mmol/L Potassium 3.9 (3.3-5.1) mmol/L Chloride 96 (96-108) mmol/L Carbon Dioxide 25 (22-29) mmol/L Anion Gap 16 (12-20) BUN 13 (9-16) mg/dL Creatinine 1.02 (0.5-1.4) mg/dL Estim Creat Clear Calc 56.4 Estimated GFR 56 Random Glucose 118 H (60-115) mg/dL Lactic Acid 1.9 (0.5-2.0) mmol/L Calcium 9.1 (8.4-10.2) mg/dL Magnesium 2.0 (1.6-2.6) mg/dL Total Bilirubin 1.4 H (0.0-1.0) mg/dL AST 75 H (5-31) U/L ALT 113 H (0-31) U/L Alkaline Phosphatase 209 H (39-117) U/L Total Creatine Kinase 91 (26-140) U/L C-Reactive Protein 38.42 H (< or = 0.50) mg/dL Total Protein 8.2 H (6.5-8.0) g/dL Albumin 3.5 (3.5-5.0) g/dL Influenza Type A (PCR) NEGATIVE (Negative) Influenza Type B (PCR) NEGATIVE (Negative) RSV RNA Qual (PCR) NEGATIVE (Negative) SARS-CoV-2 RNA (RT-PCR) NEGATIVE (Negative) S. pyogenes GrpA RODOLFO Negative (Negative) Independent Interpretation I performed an independent interpretation of an: Plain X-Ray Radiology Impression Discussion of test interpretation with radiology: I have reviewed the radiologist's reading. Radiologist Impression: [id number] [place] [address] XRay Report Signed Patient: Mylene Dougherty MR#: [id number] : 1965 Acct:[id number] Age/Sex: 59 / F ADM Date: 05/14/24 Loc: HO.ED Attending Dr: Ordering Physician: Barry Regan MD Date of Service: 05/14/24 Procedure(s): XR chest 2V Accession Number(s): [id number] cc: Darryl Clark MD; Barry Regan MD~ CLINICAL HISTORY: ?rll pneumonia 2 view chest x-ray Comparison: Chest CT from 05/04/2022 Findings: Pulmonary opacities particularly in the lateral imaged concerning for pneumonia. Emphysematous changes are redemonstrated. Likely small right pleural effusion. No pneumothorax. Cardiac silhouette and mediastinal contours are within normal limits. Degenerative changes include the imaged shoulders. Likely bone island of the proximal left humerus. IMPRESSION: 1. Small right pleural effusion. 2. Pulmonary opacities concerning for pneumonia, including right lung base. This document has been electronically signed by: Himanshu Dong MD on 05/14/2024 21:46:53 Dictated By: Himanshu Dong MD Signed By: <Electronically signed by Himanshu Dong MD in OV> 05/14/242146 Discharge Plan Discharge Clinical Impression: Community acquired pneumonia Patient Disposition: Home, Self-Care Instructions: Community Acquired Pneumonia (ED) Additional Instructions: Drink plenty of fluids Antibiotic as prescribed Tylenol/Motrin for the fever Report to the ER/PCP if not better Prescriptions: New azithromycin [Zithromax TRI-LIAM] 500 mg tablet 500 mg PO DAILY 3 Days Qty: 3 0RF cefpodoxime 200 mg tablet 200 mg PO BID Qty: 20 0RF Rx Instructions: must administer with a meal/food albuterol sulfate 90 mcg/actuation HFA aerosol inhaler 2 puff inhalation Q6H PRN (Reason: shortness of breath or wheezing) Qty: 8.5 0RF guaifenesin 600 mg tablet extended release 12hr 600 mg PO BID Qty: 20 0RF No Action multivitamin Tablet 1 tab PO DAILY psyllium husk [Daily Fiber] 0.52 gram capsule 0.52 g PO DAILY omeprazole 20 mg capsule,delayed release(DR/EC) 20 mg PO BID 14 Days Qty: 28 0RF Interventions: ED Discharge Assessment Last Done: 05/15/24 00:30 Discharge Date/Time: 05/15/24 00:31 Print Language: [place] Verdean
[2024-05-14 16:07] LABS: MANUAL DIFF FLAG NO
[2024-05-14 16:10] LABS: Basophils Percent Auto 0.3 % (0-2); Eosinophils Absolute Auto 0.1 X10*3/uL (0.0-0.4); Eosinophils Percent Auto 0.6 % (0-4); Hematocrit 34.6 % (37.0-47.0); Hemoglobin 11.9 g/dl (12.0-16.0); Imm Gran Abs Auto 0.06 X10*3/uL (0.00-0.03); Imm Gran Pct Auto 0.5 % (0.0-0.4); Lymphocytes Absolute Auto 0.7 X10*3/uL (1.2-4.9); Mean Corpuscular HGB Conc 34.4 g/dl (31.0-35.0); Mean Corpuscular Hemoglobin 28.5 pg (27.0-33.0); Mean Corpuscular Volume 82.8 fL (80.0-98.0); Mean Platelet Volume 9.8 fL (9.4-12.3); Monocytes Absolute Auto 0.9 X10*3/uL (0.1-1.2); Monocytes Percent Auto 7.8 % (2-11); Neutrophils Absolute Auto 9.7 x10*3/uL (2.0-8.3); Neutrophils Percent Auto 84.8 % (45-73); Platelet Count 299 X10*3/uL (160-400); Red Blood Count 4.18 X10*6/uL (4.20-5.50); Red Cell Distribution Width 12.6 % (11.0-16.0); White Blood Count 11.5 X10*3/uL (4.8-10.8)
[2024-05-14 16:21] LABS: IDNOW Serial# 58CA691E; Strep A Nucleic Acid Negative (Negative)
[2024-05-14 16:29] LABS: Alanine Aminotransferase 113 U/L (0-31); Albumin Level 3.5 g/dL (3.5-5.0); Anion Gap 16 (12-20); Aspartate Amino Transferase 75 U/L (5-31); Bilirubin Total 1.4 mg/dL (0.0-1.0); Blood Urea Nitrogen 13 mg/dL (9-16); C Reactive Protein 38.42 mg/dL (< or = 0.50); Calcium 9.1 mg/dL (8.4-10.2); Carbon Dioxide 25 mmol/L (22-29); Chloride 96 mmol/L (96-108); Creatinine Clr Calc Pharmacy 56.4; Estimated Glomerular Filt Rate 56; Glucose Random 118 mg/dL (60-115); Potassium 3.9 mmol/L (3.3-5.1); Sodium 133 mmol/L (135-145); Total Protein 8.2 g/dL (6.5-8.0)
[2024-05-14 16:47] LABS: Alkaline Phosphatase 209 U/L (39-117)
[2024-05-14 16:49] LABS: Influenza A PCR NEGATIVE (Negative); Influenza B PCR NEGATIVE (Negative); Resp Syncy Virus RNA Qual PCR NEGATIVE (Negative); SARS COV2 PCR INHOUSE NEGATIVE (Negative)
[2024-05-14] MEDS: Albuterol Sulfate 2.5 MG, Albuterol/Iprat 2.5/0.5MG 3 ML 3 ML INHALE (20:31)
[2024-05-14] MEDS: Ketorolac Tromethamine 30 MG/ML VIAL IVPUSH (20:34)
[2024-05-14] MEDS: Acetaminophen 325 MG TABLET 650 MG PO (20:34)
[2024-05-14] MEDS: 0.9 % Sodium Chloride 1,000 ML 999 ML IV (20:48)
--- NOTE | 2024-05-14 20:59 | MHC.EDTECH ---
This tech took over care of patient 2044,patient was changed into hospital attire,placed on the cardiac rn, vitals taken,temp is 103.0,orally,resp.rate is elevated ,RN at bedside, aware,blood cultures/lactic drawn and sent to lab, at bedside,call costa in reach
[2024-05-14] MEDS: cefTRIAXone sodium 1 GM VIAL IVPUSH (21:02)
[2024-05-14 21:12] LABS: Lactic Acid 1.9 mmol/L (0.5-2.0)
--- NOTE | 2024-05-14 21:19 | MHC.EDTECH ---
X-ray tech came and took patient at this time
--- NOTE | 2024-05-14 21:43 | MHC.EDTECH ---
Rounds and vitals completed,temp is 100.5,resp rate/HR elevated,RN aware,patient is resting quietly, at bedside ,call costa in reach
--- NOTE | 2024-05-14 22:06 | MHC.EDTECH ---
Rounds and vitals completed,BP on the right are was low,91/45,repeated on the left are 97/46,RN. aware
--- NOTE | 2024-05-14 22:14 | PC.NURSE ---
pt medicated per MAR- pt spouse request pt to be kept for observation spouse sts he doesnt want her in pain 5 hours after leaving
[2024-05-14] MEDS: Azithromycin 500 MG TABLET PO (23:01)
[2024-05-15 00:04] VITALS: BP 104/60; PULSE 89; RESP 24; TEMP 36.8; O2SAT 94
[2024-05-15 00:10] VITALS: BP 111/61; PULSE 89; RESP 22; O2SAT 95
[2024-05-15 00:30] VITALS: BP 111/61; PULSE 89; RESP 18; TEMP 36.7; O2SAT 95
== END 2024-05-15 00:31 | disposition home or self-care (01) ==
PROVIDERS: Physician Assistant Medical; Emergency Provider Internal Medicine; PCP Internal Medicine
DX: J18.8 Other pneumonia, unspecified organism (principal); R50.9 Fever, unspecified; R79.89 Other specified abnormal findings of blood chemistry; R10.9 Unspecified abdominal pain; Z03.818 Encounter for observation for suspected exposure to other biological agents ruled out; R05.9 Cough, unspecified
CPT/HCPCS: 0241U; 36415; 71046; 76705; 80053; 82550; 83605; 83735; 85025; 86140; 87040; 87651; 96361; 96374; 96375; 99284; 99285; J0696; J1885

== ENCOUNTER → 2024-05-14 19:01 | Outpatient (BNV) | payer OTHER, SELFPAY | PROVIDERS: Emergency Provider Internal Medicine; PCP Internal Medicine; Visit Provider Radiology Neuroradiology | DX: R10.9 Unspecified abdominal pain (principal); Z90.49 Acquired absence of other specified parts of digestive tract; J90 Pleural effusion, not elsewhere classified; J18.9 Pneumonia, unspecified organism | CPT/HCPCS: 71046; 76705 ==

== ENCOUNTER 2024-05-17 11:22 | Outpatient (AMB) | payer OTHER, SELFPAY ==
--- NOTE | 2024-05-17 11:25 | MHC.PC.OV ---
Vital Signs 05/17/24 11:27 Height 5 ft 2 in Weight 157 lb 4 oz BMI 28.8 BP 120/70 Blood Pressure Location Lt brachial Position Sitting Pulse 95 Pulse Source Pulse Oximeter Pulse Oximetry (%) 95 Oxygen Delivery Method Room Air Intake Visit Reasons: Pneumonia Intake Note: Patient is here to follow-up after a visit the emergency department at [facility] [place] Line Maintenance Required: No Wash Worker: Not Required per policy Accompanied by: Self / Same As Patient Allergies avocado [AVOCADO] Allergy (Unknown, Verified 05/17/24 11:26) ANAPHYLAXIS oxycodone [From PERCOCET] Allergy (Unknown, Verified 05/17/24 11:26) NAUSEA/VOMITING percocet Allergy (Unknown, Uncoded 05/17/24 11:26) severe vomiting Medication List - Last Reconciled 05/17/24 by Darryl Clark MD albuterol sulfate 90 mcg/actuation 2 puffs inhalation Q6H PRN azithromycin (Zithromax TRI-LIAM) 500 mg PO DAILY 3 days cefpodoxime 200 mg PO BID guaifenesin ER 600 mg PO BID multivitamin 1 tab PO DAILY omeprazole 20 mg PO BID 14 days psyllium husk (Daily Fiber) 0.52 grams PO DAILY Tobacco use date assessed: 05/17/24 Dental Screening Dental Screen Date: 12/29/23 HPI Pneumonia HPI Details diagnosed in the er with pneumonia 3 days ago; not improving on rx PFSH Medical History Chronic GERD History of gallbladder disease Surgical History History of cholecystectomy Family History Mother No problems noted. Father No problems noted. Sister Mental health disorder Substance use disorder Social History Housing: House Alcohol intake: never Patient Tobacco Use Status: Never used Tobacco Tobacco use type: Cigarette e-Cigarette/Vaping Use: Never Used Second Hand Smoke Exposure: No service: No Current occupational status: employed Cognitive needs: No Hearing needs: No Vision needs: Yes (glasses) Female Reproductive History Menstrual Age of Menarche: 16 Questionnaire Thrive Questionnaire Date Thrive assessed: 12/29/23 LELAND-7 AMB Questionnaire LELAND-7 Date LELAND - 7 assessed: 12/29/23 Source: Developed by Drs. Jordin Leon, Letty Ray, Eliu Mitchell and colleagues, with an educational enedina from [employer]. Review of Systems Const Denies chills, Denies headache(s) and Denies weight loss ENT Denies headache(s) Card Denies chest pain, Denies syncope, Denies irregular heart rhythm and Denies dyspnea Resp Denies dyspnea GI Denies abdominal pain, Denies change in stool character, Denies nausea and Denies vomiting Musc Denies deformity and Denies joint swelling Neuro Denies syncope and Denies headache(s) Physical exam (Primary Care) Vital Signs: Last Vital Signs Pulse 95 05/17/24 11:27 BP 120/70 05/17/24 11:27 Pulse Ox 95 05/17/24 11:27 Oxygen Delivery Method Room Air 05/17/24 11:27 BMI result Body Mass Index 28.8 Tobacco/Smoking Status: Tobacco use Status Tobacco use date assessed 05/17/24 05/17/24 11:31 Patient Tobacco Use Status Never used Tobacco 05/17/24 11:26 Tobacco use type Cigarette 05/17/24 11:26 e-Cigarette/Vaping Use Never Used 05/17/24 11:26 Thrive Assessment: Date of Thrive Assessment Date Thrive assessed 12/29/23 05/17/24 11:26 Const General: cooperative, comfortable, no acute distress and alert Neck Neck: Yes no lymphadenopathy Thyroid: Thyroid normal Resp Effort & Inspection: normal respiratory effort Auscultation: clear to auscultation bilaterally Percussion: percussion normal Cardio Jugular venous distension: no JVD Palpation: normal PMI Rate: regular rate Rhythm: regular rhythm Heart sounds: S1 normal heart sound present and S2 normal heart sound present GI Inspection: Yes normal to inspection Palpation (GI): No hepatosplenomegaly present Skin General skin exam: no rashes or lesions noted Extrem General: Yes no clubbing, cyanosis or edema Coding Level of Care Code Est Pt Level 3 (20605) Diagnoses Pneumonia J18.9 Assessment & Plan Assessment & Plan (1) Pneumonia: Code(s): J18.9 - Pneumonia, unspecified organism Plan: new rx sent Medications: New amoxicillin-pot clavulanate 500-125 mg (Augmentin) 1 tab PO BID 20 tabs 0RF
[2024-05-17 11:27] VITALS: BP 120/70; PULSE 95; O2SAT 95; BMI 28.8
== END 2024-05-17 11:39 | disposition home or self-care (01) ==
PROVIDERS: PCP Internal Medicine; Visit Provider Internal Medicine
DX: J18.9 Pneumonia, unspecified organism (principal)

== ENCOUNTER 2024-07-15 12:25 | Day surgery (SDC) | payer OTHER, SELFPAY ==
[2024-07-13 14:27] VITALS: BMI 26.9
--- NOTE | 2024-07-14 09:27 | HO.ANESPROP2 ---
Documented by User: Yue Pena NP 07/14/24 09:28 HPI - Anesthesia Eval Consult details Narrative: 59yo F for Upper Endoscopy with Balloon Dilitation, Colonoscopy PMFSH Active Problems Active Problems: All Active Problems Screen for sexually transmitted diseases (Acute) Cervical cancer screening (Acute) Women's annual routine gynecological examination (Acute) Skin lesion (Acute) Physical exam (Acute) Chronic GERD (Acute) Past Medical History Medical History (Updated 07/13/24 @ 14:32 by Jacqueline Fraga RN) Pneumonia Basal cell carcinoma Chronic GERD History of gallbladder disease Family History Family History Mother No problems noted. Father No problems noted. Sister Mental health disorder Substance use disorder Surgical History Surgical History (Updated 07/15/24 @ 12:40 by Merry Craig RN) History of facial surgery H/O colonoscopy Hx of excision of mass Hx of reduction mammoplasty Hx of umbilical hernia repair History of cholecystectomy Social History Social History (Updated 07/13/24 @ 14:30 by Jacqueline Fraga RN) Household Members: Spouse Housing: House Are you a primary acute care occupational therapist to a significant other at home: No Do you presently have visiting nurse or other home services: No Alcohol intake: never Patient Tobacco Use Status: Never used Tobacco Tobacco use type: Cigarette e-Cigarette/Vaping Use: Never Used Second Hand Smoke Exposure: No Use of substances other than those prescribed or required for medical reasons: No Have you been hit, kicked, punched, or otherwise hurt by someone within the past year? If so, by whom?: No Are you DNR?: No Advance Directives: No Advance Directives Information Provided: No Advance Directives on File: No Recently lost weight without trying: No How much weight loss: Not applicable Eating poorly because of decreased appetite: No Nutrition screen score: 0 Nutrition Risks: No Nutritional Risk Patient : No : No Poor oral hygiene: No service: No Current occupational status: employed Cognitive needs: No Hearing needs: No Vision needs: Yes (glasses) Meds Allergies Allergy/AdvReac Type Severity Reaction Status Date / Time avocado [AVOCADO] Allergy Severe ANAPHYLAXIS Verified 07/15/24 12:42 acetaminophen Allergy Intermediate Per Verified 07/15/24 12:42 patient- ONLY if taken in large amounts, RASH oxycodone [From PERCOCET] Allergy Intermediate NAUSEA/VOMI Verified 07/15/24 12:42 TING flu vaccine Allergy Severe SOB, Uncoded 07/15/24 13:01 Palpitations, Near Syncope Home Medications ?Medication ?Instructions ?Recorded ?Confirmed ?Last Taken ?Type multivitamin 1 tab PO DAILY 12/20/20 07/15/24 Unknown History psyllium husk 0.52 gram capsule 0.52 g PO DAILY 12/20/20 07/15/24 Unknown History (Daily Fiber) Exam Height,Weight and Vital Signs: Height 5 ft 2 in Weight 66.678 kg Assessment and Plan Assessment Anesthesia Assessment: Chart Reviewed Documented by User: Joseluis Britton MD 07/15/24 14:35 [facility] Past Medical History Medical History (Updated 07/13/24 @ 14:32 by Jacqueline Fraga RN) Pneumonia Basal cell carcinoma Chronic GERD History of gallbladder disease Family History Family History Mother No problems noted. Father No problems noted. Sister Mental health disorder Substance use disorder Family history of problems with anesthesia: No Surgical History Surgical History (Updated 07/15/24 @ 12:40 by Merry Craig RN) History of facial surgery H/O colonoscopy Hx of excision of mass Hx of reduction mammoplasty Hx of umbilical hernia repair History of cholecystectomy History of Problems with Anesthesia: Yes (Severe PONV; also had episode of intraop recall in 2008.) Social History Social History (Updated 07/13/24 @ 14:30 by Jacqueline Fraga RN) Household Members: Spouse Housing: House Are you a primary acute care occupational therapist to a significant other at home: No Do you presently have visiting nurse or other home services: No Alcohol intake: never Patient Tobacco Use Status: Never used Tobacco Tobacco use type: Cigarette e-Cigarette/Vaping Use: Never Used Second Hand Smoke Exposure: No Use of substances other than those prescribed or required for medical reasons: No Have you been hit, kicked, punched, or otherwise hurt by someone within the past year? If so, by whom?: No Are you DNR?: No Advance Directives: No Advance Directives Information Provided: No Advance Directives on File: No Recently lost weight without trying: No How much weight loss: Not applicable Eating poorly because of decreased appetite: No Nutrition screen score: 0 Nutrition Risks: No Nutritional Risk Patient : No : No Poor oral hygiene: No service: No Current occupational status: employed Cognitive needs: No Hearing needs: No Vision needs: Yes (glasses) Meds Allergies Allergy/AdvReac Type Severity Reaction Status Date / Time avocado [AVOCADO] Allergy Severe ANAPHYLAXIS Verified 07/15/24 12:42 acetaminophen Allergy Intermediate Per Verified 07/15/24 12:42 patient- ONLY if taken in large amounts, RASH oxycodone [From PERCOCET] Allergy Intermediate NAUSEA/VOMI Verified 07/15/24 12:42 TING flu vaccine Allergy Severe SOB, Uncoded 07/15/24 13:01 Palpitations, Near Syncope Home Medications ?Medication ?Instructions ?Recorded ?Confirmed ?Last Taken ?Type multivitamin 1 tab PO DAILY 12/20/20 07/15/24 Unknown History psyllium husk 0.52 gram capsule 0.52 g PO DAILY 12/20/20 07/15/24 Unknown History (Daily Fiber) Exam Airway Mallampati Class: II TM Dist: <=3cm (Very anterior. Marked micrognathia.) Neck ROM: Full Loose/Missing/Broken Teeth: No Heart: ok Lungs: ok Assessment and Plan Assessment Anesthesia Assessment: Anesthesia Plan Discussed Final Anesthetic Review Family History of Problems with Anesthesia: No History of Problems with Anesthesia: Yes (Severe PONV; also had episode of intraop recall in 2008.) NPO: Yes ASA Class: II Final Preanesthetic Review: No Changes in Pt Med Stat, Meds/Allgs Chart Reviewed, Consent Obtained/Reviewed and Anes Risks/Benef Reviewed Patient Risk: Intermediate Procedure Risk: Intermediate Anesthetic Plan Anesthetic Plan: Agree w/ Assess. and Plan and TIVA Disposition: Standard PACU
[2024-07-15 12:52] VITALS: BP 140/84; PULSE 99; RESP 16; TEMP 36.4; O2SAT 97; BMI 39.4
[2024-07-15] MEDS: Lactated Ringers 1,000 ML 100 ML IVCONT (13:17)
--- NOTE | 2024-07-15 14:02 | PC.NURSE ---
Patient in preop. Recent basal cell carcinoma removed from face, right side. Per her the doctors said not to apply any pressure to the area . Dr. Britton and OR nurse Frank made aware.
[2024-07-15 15:05] VITALS: BP 102/54; PULSE 87; RESP 18; TEMP 36.1; O2SAT 94
--- NOTE | 2024-07-15 15:15 | PM.OP ---
Brief Operative Note Date of Service: 07/15/24 Pre-op diagnosis: Dysphagia, Screening Post-op diagnosis: other (Erosive esophagitis, Hiatal hernia, Diverticulosis) Procedure: EGD with biopsies, Colonoscopy to the cecum Surgeon: Jordin Mixon MD Anesthesia: MAC Was an Dry Cell Assembly Supervisor used for this Procedure?: No Estimated blood loss (mL): 2.0 Pathology: other (A. Esophagus from EG Junction at 30cm to esophagus at 27cm B. Esophagus 20-25cm) Condition: stable Disposition: PACU
[2024-07-15 15:20] VITALS: BP 118/79; PULSE 86; RESP 16; TEMP 36.1; O2SAT 97
--- NOTE | 2024-07-16 01:14 | OP_ITS ---
DATE OF SERVICE: 07/15/2024 SURGEON: Jordin Mixon MD INDICATIONS: The patient presents for evaluation of dysphagia, gastroesophageal reflux, and personal history of a serrated polyp of the colon. Full consent has been obtained from her for this, including risks of bleeding and perforation. PREOPERATIVE DIAGNOSIS: POSTOPERATIVE DIAGNOSIS: PROCEDURE PERFORMED: Esophagogastroduodenoscopy with biopsies and colonoscopy to the cecum. ESTIMATED BLOOD LOSS: COMPLICATIONS: ANESTHESIA: Medication used, monitored anesthesia care. ASSISTANTS: SPECIMENS: PREOPERATIVE DIAGNOSES: Colorectal cancer screening, personal history of a serrated colon polyp, dysphagia, and gastroesophageal reflux. POSTOPERATIVE DIAGNOSES: Colorectal cancer screening, personal history of a serrated colon polyp, dysphagia, and gastroesophageal reflux, erosive esophagitis, rule out eosinophilic esophagitis, hiatal hernia, diverticulosis, and internal hemorrhoids. DESCRIPTION OF PROCEDURE: The patient was placed in the left lateral decubitus position. The Olympus video gastroscope was passed in the posterior oropharynx and upper esophagus under direct vision. The scope was passed slowly into the distal esophagus. The gastroesophageal junction appeared at 30 cm. Extending from this to approximately 27 cm were linear erosions with some overlying exudate. There was no sign of any mass, stricture, nor Olmedo esophagus. The scope easily entered the stomach. There was a moderate-sized hiatal hernia. The hiatal hernia mucosa appeared normal. The scope was advanced to the pylorus, and the duodenum was cannulated to the descending portion. The duodenum including the bulb appeared normal without mass or ulceration. The scope was withdrawn back in the stomach. The gastric antrum and body appeared normal with good peristalsis. The scope was retroflexed visualizing the proximal stomach carefully, which appeared normal, without any sign of mass or ulceration. The scope was straightened and withdrawn back to the esophagus. With insufflation of air, the gastroesophageal junction was widely patent. Again, noted were the linear erosions from 30 cm to 27 cm. Biopsies were obtained. The scope was withdrawn through the remainder of the esophagus. The esophageal mucosa otherwise appeared normal. There was no evidence of any proximal esophageal rings or strictures. Biopsies were obtained between 20 cm to 25 cm to rule out eosinophilic esophagitis. The scope was withdrawn from the patient. She was turned around for the colonoscopy. The digital rectal exam revealed no abnormalities. The Olympus video pediatric colonoscope was entered into the rectum and advanced easily to the cecum. Once in the cecum, I did identify normal-appearing cecal pouch with appendiceal orifice and a normal-appearing ileocecal valve. The entire cecum and ileocecal valve appeared normal. There was transillumination of light deep in the right lower quadrant. The scope was slowly withdrawn assessing all mucosal surfaces carefully. Preparation was excellent. I did not visualize any sign of polyps, colitis, or angiodysplasia. There was a mild amount of sigmoid diverticulosis. In the rectum, scope was retroflexed visualizing internal hemorrhoids but no other pathology. The rectal mucosa appeared normal. The scope was straightened and withdrawn from the patient. She tolerated both procedures well and was returned to the recovery area in stable condition. IMPRESSION: 1. Erosive esophagitis, hiatal hernia. 2. Rule out eosinophilic esophagitis. 3. Sigmoid diverticulosis. 4. Internal hemorrhoids. PLAN: The results of the biopsies will be checked. I do suspect at this point that her intermittent dysphagia is related to some reflux esophagitis and esophageal spasm. I shall make sure that she is using omeprazole on a regular basis rather than just p.r.n. She will be seen in followup in that regard. She was advised not to use any aspirin and NSAIDs for at least 2 weeks. I would recommend a repeat colonoscopy in 5 years for further screening given the previous history of a serrated polyp of the colon. MD HARDY Nicholson/OLAYINKA / [id number]
== END 2024-07-15 15:40 | disposition home or self-care (01) ==
PROVIDERS: PCP Internal Medicine; Visit Provider Internal Medicine
PROC: (CPT 45378; principal; 2024-07-15 13:40)
PROC: 0DJD8ZZ Inspection of Lower Intestinal Tract, Via Natural or Artificial Opening Endoscopic (ICD-10-PCS; CPT 45378; 2024-07-15 13:40)
DX: Z12.11 Encounter for screening for malignant neoplasm of colon (principal); Z86.0101 Personal history of adenomatous and serrated colon polyps; K57.30 Diverticulosis of large intestine without perforation or abscess without bleeding; K64.8 Other hemorrhoids; R13.10 Dysphagia, unspecified; K21.9 Gastro-esophageal reflux disease without esophagitis; K20.80 Other esophagitis without bleeding; K44.9 Diaphragmatic hernia without obstruction or gangrene; Z85.828 Personal history of other malignant neoplasm of skin; Z79.899 Other long term (current) drug therapy; Z88.5 Allergy status to narcotic agent; Z90.49 Acquired absence of other specified parts of digestive tract; Z98.890 Other specified postprocedural states
CPT/HCPCS: 45378; 43239; 88305; 88312; 88313; J2003; J2704; J3010

== ENCOUNTER 2024-12-09 08:37 | Outpatient (REF) | payer OTHER, SELFPAY ==
--- OUTSIDE RECORDS SUMMARY | 2024-11-25 10:00 | XMS_ITS ---
Author Organization [facility] Address [address] [place] [address] Care Team Providers Care Adult Protective Caseworker Name Role Phone Gianna Diaz Primary Care Provider Jordin Rogers Unavailable [phone] Allergies Allergen (clinical drug ingredient) Drug/Non Drug Allergy documented on EMR Reaction Allergy Type Onset Date Status acetaminophen / oxycodone Percocet Unknown Drug Allergy Active REASON FOR VISIT Patient presents today for EROSIVE ESOPHAGITIS Medications Medication SIG (Take, Route, Fr equency, Duration) Notes Start Date End Date Status Omeprazole 40 MG 1 capsule Orally Onc e a day every morning for 30 days 11/25/2024 Active Multivitamin Adult A ctive Fiber Active Omeprazole 40 MG 1 capsule Once a day Active Immunizations Vaccine Route Administration Date Status Comme nts Influenza Unknown 11/25/2024 Refused Social History Tobacco Use: Social History Observation Description Date Details (start date - stop date) Never Smoker NA - NA Tobacco Use/Smoking Question Answer Notes Patient is a nonsmoker Alcohol Screen Question Answer Notes Did you have a drink contain ing alcohol in the past year? Yes How often did you have a dri nk containing alcohol in the past year? Never (0 point) How many drinks did you have on a typical day when you were drinking in the past year? 1 or 2 drinks (0 point) How often did you have 6 or more drinks on one occasion in the past year? Never (0 point) Points 0 Interpretation Negative Problems Problem Type SNOMED Code ICD Code Onset Dates Problem Status W/U Status Risk Notes Problem Erosive esophagitis (34818802) Erosive esophagitis (K22.10) Active confirmed Vital Signs Temperature 97.7 degrees Fahrenheit 11/26/19 25 Blood pressure systolic 001 mm Hg 11/26/19 25 Blood pressure diastolic 01 mm Hg 025 Height 5 ft 2 in in 11/25/2024 Weight 149.2 lbs 11/25/2024 BMI 27.29 kg/m2 11/25/2024 Encounters Encounter Location Date Provider Diagnosis [facility] [address] [place] [address] 11/25/2024 Jordin Mixon Erosive esophagitis K22.10 ; GERD (gastroesophageal reflux disease) K21.9 ; Colon cancer screening Z12.11 and Personal history of colonic polyps Z86.010 Assessments Encounter Date Diagnosis (ICD Code) Assessment Notes Treatment Notes Treatment Clinical Notes Section Notes 11/25/2024 Erosive esophagitis (ICD-10 - K22.10) Stay on the 40mg Omeprazole daily Overall, Aj appears well. We did review the findings on her upper endoscopy and colonoscopy from earlier this year. Based on the negative recent colonoscopy but the colonoscopy 5 years prior to this revealing a serrated colon polyp I recommended a follow-up colonoscopy in 5 years for further screening. I did advise her to continue the current regimen of the omeprazole 40 mg daily as it does seem to be working better than the 20 mg dose from a symptomatic standpoint in regard to the acid reflux with associated heartburn and her trouble swallowing. We did review that I suspect she was having some esophageal spasm in relation to the acid reflux given the endoscopic findings of the erosive esophagitis. The fact that she is now feeling better on the higher dose of omeprazole would certainly attest to that. We did discuss her moderate size hiatal hernia and its association with reflux. We did review the potential for surgery for hiatal hernias but at this point if she is doing well on the medication I recommended that she simply continue that as opposed to undergoing surgery. Given no sign of Olmedo's esophagus I do not think she would need any further upper endoscopies going forward as long as she continues to do well from a symptomatic standpoint. At this point, if things are stable, she will see me in 2030 for another screening colonoscopy. I did advise her to certainly call in the interim if she has any problems or questions I can be of assistance with. Aj was comfortable with this plan. Thank you again for allowing me to participate in Aj's care. I shall continue to keep you advised of her progress. 11/25/2024 GERD (gastroesophage al reflux disease) (ICD-10 - K21.9) Overall, Aj appears well. We did review the findings on her upper endoscopy and colonoscopy from earlier this year. Based on the negative recent colonoscopy but the colonoscopy 5 years prior to this revealing a serrated colon polyp I recommended a follow-up colonoscopy in 5 years for further screening. I did advise her to continue the current regimen of the omeprazole 40 mg daily as it does seem to be working better than the 20 mg dose from a symptomatic standpoint in regard to the acid reflux with associated heartburn and her trouble swallowing. We did review that I suspect she was having some esophageal spasm in relation to the acid reflux given the endoscopic findings of the erosive esophagitis. The fact that she is now feeling better on the higher dose of omeprazole would certainly attest to that. We did discuss her moderate size hiatal hernia and its association with reflux. We did review the potential for surgery for hiatal hernias but at this point if she is doing well on the medication I recommended that she simply continue that as opposed to undergoing surgery. Given no sign of Olmedo's esophagus I do not think she would need any further upper endoscopies going forward as long as she continues to do well from a symptomatic standpoint. At this point, if things are stable, she will see me in 2030 for another screening colonoscopy. I did advise her to certainly call in the interim if she has any problems or questions I can be of assistance with. Aj was comfortable with this plan. Thank you again for allowing me to participate in Aj's care. I shall continue to keep you advised of her progress. 11/25/2024 Colon cancer screening (ICD-10 - Z12.11) Repeat colonoscopy in 2029 Overall, Aj appears well. We did review the findings on her upper endoscopy and colonoscopy from earlier this year. Based on the negative recent colonoscopy but the colonoscopy 5 years prior to this revealing a serrated colon polyp I recommended a follow-up colonoscopy in 5 years for further screening. I did advise her to continue the current regimen of the omeprazole 40 mg daily as it does seem to be working better than the 20 mg dose from a symptomatic standpoint in regard to the acid reflux with associated heartburn and her trouble swallowing. We did review that I suspect she was having some esophageal spasm in relation to the acid reflux given the endoscopic findings of the erosive esophagitis. The fact that she is now feeling better on the higher dose of omeprazole would certainly attest to that. We did discuss her moderate size hiatal hernia and its association with reflux. We did review the potential for surgery for hiatal hernias but at this point if she is doing well on the medication I recommended that she simply continue that as opposed to undergoing surgery. Given no sign of Olmedo's esophagus I do not think she would need any further upper endoscopies going forward as long as she continues to do well from a symptomatic standpoint. At this point, if things are stable, she will see me in 2029 for another screening colonoscopy. I did advise her to certainly call in the interim if she has any problems or questions I can be of assistance with. Aj was comfortable with this plan. Thank you again for allowing me to participate in Aj's care. I shall continue to keep you advised of her progress. 11/25/2024 Personal history of colonic polyps (ICD-10 - Z86.010) Overall, Aj appears well. We did review the findings on her upper endoscopy and colonoscopy from earlier this year. Based on the negative recent colonoscopy but the colonoscopy 5 years prior to this revealing a serrated colon polyp I recommended a follow-up colonoscopy in 5 years for further screening. I did advise her to continue the current regimen of the omeprazole 40 mg daily as it does seem to be working better than the 20 mg dose from a symptomatic standpoint in regard to the acid reflux with associated heartburn and her trouble swallowing. We did review that I suspect she was having some esophageal spasm in relation to the acid reflux given the endoscopic findings of the erosive esophagitis. The fact that she is now feeling better on the higher dose of omeprazole would certainly attest to that. We did discuss her moderate size hiatal hernia and its association with reflux. We did review the potential for surgery for hiatal hernias but at this point if she is doing well on the medication I recommended that she simply continue that as opposed to undergoing surgery. Given no sign of Olmedo's esophagus I do not think she would need any further upper endoscopies going forward as long as she continues to do well from a symptomatic standpoint. At this point, if things are stable, she will see me in 2029 for another screening colonoscopy. I did advise her to certainly call in the interim if she has any problems or questions I can be of assistance with. Aj was comfortable with this plan. Thank you again for allowing me to participate in Aj's care. I shall continue to keep you advised of her progress. Plan Of Treatment Medication Medication Name Sig Start Date Stop Date Notes Omeprazole 40 MG 1 capsule Orally Onc e a day every morning for 30 days 11/25/2024 Treatment Notes Assessment Notes Erosive esophagitis Stay on the 40mg Ome prazole daily Colon cancer screening Repeat colonoscop y in 2029 Progress Notes * PRECHTAJ WilliamsonDOB:1965 (59 yo F)Acc No.[id number]:11/25/2024 Progress Notes Patient: AJ HECK Provider: Nain Mixon MD :1965 A ge:59 Y S ex:Female Date:11/25/2024 Address:[address] [place] [address] Pcp:JAZZMINE Sow Subjective: * Chief Complaints: * 1 . Patient presents today for EROSIVE ESOPHAGITIS. * HPI: i ncontinence: I saw Aj in follow-up today in regard to her history of gastroesophageal reflux, erosive esophagitis, previous dysphagia, and discussion of colorectal cancer screening. I last saw Aj in June, at which time she underwent an upper endoscopy for evaluation of her reflux and dysphagia, and a colonoscopy for screening purposes. Her colonoscopy was negative for any recurrent polyps. Her upper endoscopy revealed evidence of erosive esophagitis and a moderate-sized hiatal hernia. There was no esophageal stricture and biopsies were negative for Olmedo's esophagus. Esophageal biopsies were also negative for eosinophilic esophagitis. After that endoscopy I gave her a prescription for omeprazole 40 mg daily. She had been using omeprazole 20 mg but not on a daily basis. She describes having used the 20 mg omeprazole 3-4 times per week but just as needed. Since having switched to the 40 mg omeprazole daily she has noticed a definite improvement both in regard to her heartburn and swallowing issues. She reports that she is no longer having any heartburn and her swallowing has been back to normal without any episodes of obstruction or sense of dysphagia. Her bowel movements have remained regular and without any bleeding. She denies abdominal pain, jaundice, nor unintentional weight loss. * Medical History: D enies OR,DM,CVA,Lung disease,renal disease, Skin cancer by nose -future surgery to remove with cyst on head , Colonoscopy with Dr. Smyth at age 52 with removal of a serrated polyp- told to repeat in 5 years, GERD- Erosive esophagitis-EGD 06/2024- moderate size hiatal hernia- Biopsies were negative for Olmedo's esophagus and negative for eosinophilic esophagitis, Negative screening colonoscopy in 06/2024. * Surgical History: C holecystectomy , Umbilical hernia repair x 2 , Cysts on scalp , Extra breast tissue removed , Basal cell skin cancer . * Family History: F ather: alive, kidney ds/ copd, diagnosed with Heart disease. M other: alive, hiatal hernia/gilion ds, diagnosed with Diabetes, HTN (hypertension), Heart disease. no known hx of colon ca, polyps. Sister has stage 4, started out anal cancer and has spread to liver, lung and possibly kidney. * Social History: T obacco Use: T obacco Use/Smoking P atient is a n onsmoker. D rugs/Alcohol: A lcohol Screen D id you have a drink containing alcohol in the past year? Y es, H ow often did you have a drink containing alcohol in the past year? N ever (0 point), H ow many drinks did you have on a typical day when you were drinking in the past year? 1 or 2 drinks (0 point), H ow often did you have 6 or more drinks on one occasion in the past year? N ever (0 point), P oints 0 , I nterpretation N egative. M iscellaneous: M arital status: . 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 * Medications: T aking Fiber , Taking Omeprazole 40 MG Capsule Delayed Release 1 capsule Once a day , Taking Multivitamin Adult , Medication List reviewed and reconciled with the patient * Allergies: P ercocet. Objective: * Vitals: W t: 149.2 lbs, Ht: 5 ft 2 in, BMI:27.29Index, BP: 001/01 mm Hg, Temp: 97.7, Wt- k.68. Assessment: * Assessment: 1. E rosive esophagitis - K22.10 (Primary) 2 . G ERD (gastroesophageal reflux disease) - K21.9 3 . C olon cancer screening - Z12.11 4 .?Personal history of colonic polyps - Z86.010 Overall, Aj appears well. We did review the findings on her upper endoscopy and colonoscopy from earlier this year. Based on the negative recent colonoscopy but the colonoscopy 5 years prior to this revealing a serrated colon polyp I recommended a follow-up colonoscopy in 5 years for further screening. I did advise her to continue the current regimen of the omeprazole 40 mg daily as it does seem to be working better than the 20 mg dose from a symptomatic standpoint in regard to the acid reflux with associated heartburn and her trouble swallowing. We did review that I suspect she was having some esophageal spasm in relation to the acid reflux given the endoscopic findings of the erosive esophagitis. The fact that she is now feeling better on the higher dose of omeprazole would certainly attest to that. We did discuss her moderate size hiatal hernia and its association with reflux. We did review the potential for surgery for hiatal hernias but at this point if she is doing well on the medication I recommended that she simply continue that as opposed to undergoing surgery. Given no sign of Olmedo's esophagus I do not think she would need any further upper endoscopies going forward as long as she continues to do well from a symptomatic standpoint. At this point, if things are stable, she will see me in 2030 for another screening colonoscopy. I did advise her to certainly call in the interim if she has any problems or questions I can be of assistance with. Aj was comfortable with this plan. Thank you again for allowing me to participate in Aj's care. I shall continue to keep you advised of her progress. Plan: * Treatment: 2. C olon cancer screening Notes: Repeat colonoscopy in 2030 * Immunizations: Influenza (Not administered - Refused: Patient decision) * Preventive Medicine: Counseling: C are goal follow-up plan: A gerardo Normal BMI Follow-up D ietary management education, guidance, and counseling, B OR management provided Y makayla. * * The named appointment provid er may or may not be the originator of this progress note, and it is not deemed complete until electronically signed by the appointment provider. Sign off status: Pending * Provider: Nain Mixon MD Date: 0 11/25/2024 Generated for [place] dominguez/Faxing/eTransmitting on: 0 12/09/2024 08:48 AM EDT
== END 2024-12-09 08:38 | disposition home or self-care (01) ==
LOC: HO.MAMMO 08:37
PROVIDERS: Visit Provider Internal Medicine
DX: Z12.31 Encounter for screening mammogram for malignant neoplasm of breast (principal)
CPT/HCPCS: 77063; 77067

== ENCOUNTER → 2024-12-09 09:00 | Outpatient (BNV) | payer OTHER, SELFPAY | PROVIDERS: Visit Provider Internal Medicine | DX: Z12.31 Encounter for screening mammogram for malignant neoplasm of breast (principal) | CPT/HCPCS: 77063; 77067 ==

== ENCOUNTER 2024-12-30 09:54 | Outpatient (AMB) | payer OTHER, SELFPAY ==
--- OUTSIDE RECORDS SUMMARY | 2024-07-15 09:40 | XMS_ITS ---
Author Organization [facility] Address [address] [place] [address] Care Team Providers Care Procurement Services Manager Name Role Phone Gianna Diaz Primary Care Provider UnaJordin Merchant Unavailable [phone] REASON FOR VISIT gerd,dysphagia, screening,hx polyps Encounters Encounter Location Date Provider Diagnosis [facility] [place] Outpatient [address] [place], [place] [phone] 07/15/2024 Jordin Mixon Colon cancer scree rosy [...] Notes * DELMI HARVEY:1965 (59 yo F)Acc No.[id number]:07/15/2024 EGD and COL/MAC Patient: AJ HECK Provider: Nain Mixon MD :1965 A ge:59 Y S ex:Female Date:07/15/2024 Address:[address] [place] [address] Pcp:Gianna Srivastava PAC Subjective: * Chief Complaints: [...] 4 5378 DIAGNOSTIC COLONOSCOPY, Modifiers: 33 , 51782 UPPER GI ENDOSCOPY, BIOPSY * * The named appointment provid er may or may not be the originator of this progress note, and it is not deemed complete until electronically signed by the appointment provider. Sign off status: Pending * Provider: Nain Mixon MD Date: 0 07/15/2024 Generated for Denton dominguez/Mirtha/Donnellitting on: 0 12/30/2024 10:11 AM EDT
--- NOTE | 2024-12-30 09:57 | A.OFFPC_ITS ---
Vital Signs 12/30/24 09:59 12/30/24 10:44 Height 5 ft 2 in Weight 148 lb BMI 27.1 BP 144/72 H 168/88 H Blood Pressure Location Lt brachial Rt brachial Position Sitting Sitting Pulse 64 Pulse Source Pulse Oximeter Pulse Oximetry (%) 99 Oxygen Delivery Method Room Air Intake Visit Reasons: RUBEN Dr Clark - see comments Associate Spa Director Required: No Accompanied by: Self / Same As Patient Allergies avocado (AVOCADO) Allergy (Severe, Verified 12/30/24 10:18) ANAPHYLAXIS acetaminophen Allergy (Intermediate, Verified 12/30/24 10:18) Per patient- ONLY if taken in large amounts, RASH oxycodone (From PERCOCET) Allergy (Intermediate, Verified 12/30/24 10:18) NAUSEA/VOMITING flu vaccine Allergy (Severe, Uncoded 12/30/24 10:18) SOB, Palpitations, Near Syncope Medication List - Last Reconciled 12/30/24 by Gianna Srivastava PA-C multivitamin 1 tab PO DAILY omeprazole 40 mg PO DAILY psyllium husk (Daily Fiber) 0.52 grams PO DAILY Tobacco use date assessed: 12/30/24 Dental Screening Dental Screen Date: 12/30/24 Did you have a dental visit in the last 12 months?: No Did you have a dental problem in the last 6 months where you did not have access to dental care?: No Was dental information given to patient?: Patient declined HPI RUBEN Dr Clark - see comments HPI Details 59 year old female with past medical his tory of GERD last seen by Dr. Clark 04/2024 coming in for RUBEN. In review of the notes, she was seen by GI 11/2024 for EGD with colonoscopy 06/[address] Mixon and started on Omeprazole for esophagitis. Repeat colo in 5 years. Mammogram completed 11/2024 requiring additional imaging 01/2025. Also following with [place] derm 11/2024 for pilar cyst s/p excision. Presenting with hypertension and sleep disturbances.Recent blood pressure readings have been elevated, with measurements of 170/88 mmHg and 168/88 mmHg noted during the visit.The patient reports difficulty maintaining sleep, with snoring and waking up feeling tired. Family history Notable for aortic aneurysm, cancer, and heart disease. Mammo: 11/2024 repeat imaging sched for 01/2025 [place]: 06/2024 repeat in 5 years Pap smear: 2020 following with knowledge management advisor Vaccines: PFSH Medical History Pneumonia Basal cell carcinoma Chronic GERD History of gallbladder disease Surgical History History of facial surgery H/O colonoscopy (~07/15/24) Hx of excision of mass Hx of reduction mammoplasty Hx of umbilical hernia repair History of cholecystectomy Family History Mother No problems noted. Father AAA (abdominal aortic aneurysm) Sister Mental health disorder Substance use disorder Lung cancer Kidney cancer, primary, with metastasis from kidney to other site Anal cancer Social History Household Members: Spouse Housing: House Are you a primary student career development specialist to a significant other at home: No Do you presently have visiting nurse or other home services: No Alcohol intake: never Patient Tobacco Use Status: Never used Tobacco Tobacco use type: Cigarette e-Cigarette/Vaping Use: Never Used Second Hand Smoke Exposure: No service: No Current occupational status: employed Cognitive needs: No Hearing needs: No Vision needs: Yes (glasses) Female Reproductive History Menstrual Age of Menarche: 16 Questionnaire PHQ-9 Over the last 2 weeks, how often have you been bothered by any of the following problems? 1. Little interest or pleasure in doing things: not at all 2. Feeling down, depressed, or hopeless: not at all 3. Trouble falling or staying asleep, or sleeping too much: several days 4. Feeling tired or having little energy: nearly every day 5. Poor appetite or overeating: not at all 6. Feeling bad about yourself - or that you are a failure or have let yourself or your family down: not at all 7. Trouble concentrating on things, such as reading the newspaper or watching television: not at all 8. Moving or speaking so slowly that other people could have noticed. Or the opposite - being so fidgety or restless that you have been moving around a lot more than usual: not at all 9. Thoughts that you would be better off or of hurting yourself in some way: not at all Total score: 4 Depression Screening Interpretation: Negative Depression Screening Done: Yes 95003 - PHQ-9 Billing: Yes Source: Developed by Drs. Jordin Leon, Letty Ray, Eliu Mitchell and colleagues, with an educational enedina from [employer]. Thrive Questionnaire Date Thrive assessed: 12/30/24 I am a: Patient What is your living situation today?: I have a steady place to live Within the past 12 months, did the food you bought not last and you didn't have the money to get more?: I choose not to answer this question Within the past 12 months, did you worry whether your food would run out before you got money to buy more?: I choose not to answer this question Do you have trouble paying for medicines?: I choose not to answer this question Do you have trouble getting transportation to medical appointments?: I choose not to answer this question Do you have trouble paying your heating and electricity bill?: I choose not to answer this question Do you have trouble taking care of your child, family member or friend?: I choose not to answer this question Do you have trouble with day-to-day activities such as bathing, preparing meals, shopping, managing finances, etc.?: I choose not to answer this question Are you currently unemployed and looking for a job?: I choose not to answer this question Are you interested in more education?: I choose not to answer this question Please select the resources that you would like help with: None Currently or been in a relationship where the following occur: No concerns reported THRIVE Score: 0 AUDIT C Alcohol Use Questionnaire (AUDIT-C) 1. How often do you have a drink containing alcohol?: Monthly or less 2. How many drinks containing alcohol do you have on a typical day when you are drinking?: 1 or 2 3. How often do you have six or more drinks on one occasion?: Never Total Score: 1 LELAND-7 AMB Questionnaire LELAND-7 Date LELAND - 7 assessed: 12/30/24 Feeling nervous, anxious, or on edge: 0 = Not at all Not being able to stop or control worryin = Not at all Worrying too much about different things: 0 = Not at all Trouble relaxin = Not at all Being so restless that it is hard to sit still: 0 = Not at all Becoming easily annoyed or irritable: 0 = Not at all Feeling afraid as if something awful might happen: 0 = Not at all Total LELAND-7 score (0-4 normal; 5-9 mild; 10-14 moderate; 15-21 severe): 0 Source: Developed by Drs. Jordin Leon, Letty Ray, Eliu Mitchell and colleagues, with an educational enedina from [employer]. LELAND-7 Assessment Billing LELAND-7 Assessment Tool: LELAND-7 Assessment 34592 Review of Systems Const Denies body aches, Denies chills, Denies fever(s), Denies headache(s) and Denies poor appetite Eyes Reports no additional complaints ENT Denies dysphagia, Denies dizziness, Denies headache(s) and Denies odynophagia Card Denies chest pain, Denies syncope, Denies edema, Denies irregular heart rhythm, Denies lightheadedness and Denies dyspnea Resp Denies cough and Denies dyspnea GI Denies dysphagia, Denies diarrhea, Denies nausea, Denies odynophagia and Denies vomiting Reports no additional complaints Musc Reports no additional complaints and Denies abnormal gait Skin/Breast Reports system reviewed and no additional complaints, except as documented Neuro Denies abnormal gait, Denies dizziness, Denies syncope and Denies headache(s) Psych Reports no additional complaints Physical exam (Primary Care) Vital Signs: Last Vital Signs Pulse 64 12/30/24 09:59 BP 168/88 H 12/30/24 10:44 Pulse Ox 99 12/30/24 09:59 Oxygen Delivery Method Room Air 12/30/24 09:59 BMI result Body Mass Index 27.1 Tobacco/Smoking Status: Tobacco use Status Tobacco use date assessed 12/30/24 12/30/24 10:07 Patient Tobacco Use Status Never used Tobacco 12/30/24 10:07 Tobacco use type Cigarette 12/30/24 10:07 e-Cigarette/Vaping Use Never Used 12/30/24 10:07 PHQ-9: PHQ-9 Score PHQ-9: Total score 4 12/30/24 10:19 Depression Screening Interpretation: Negative Thrive Assessment: Date of Thrive Assessment Date Thrive assessed 12/30/24 12/30/24 10:07 Currently or been in a relationship where the following occur: No concerns reported Const General: cooperative, healthy appearing, comfortable and no acute distress Orientation/consciousness: patient oriented x3 HENMT Head: Yes normocephalic Ears: hearing grossly normal bilaterally General nose exam: Normal external nose present Eyes General: appearance normal, both eyes and all related structures Conjunctivae: conjunctivae normal Neck Neck: Yes full ROM and Yes no lymphadenopathy Resp Effort & Inspection: normal respiratory effort Auscultation: clear to auscultation bilaterally, no crackles, no rales, no rhonchi and no wheezes Cardio Rate: regular rate Rhythm: regular rhythm Skin General skin exam: no rashes or lesions noted Neuro General: patient oriented x3 Gait exam (Neuro): Normal gait present Extrem General: Yes normal to inspection, Yes full ROM and No edema Psych Affect: normal affect Attitude: cooperative Insight: Good insight present (Psych) Judgement: Good judgement present (Psych) Coding Level of Care Code Est Pt Prev Care 40-64y(59331) Diagnoses Physical exam Z00.00 Chronic GERD K21.9 Cervical cancer screening Z12.4 Skin lesion L98.9 Family history of abdominal aortic aneurysm (AAA) Z82.49 Hypersomnolence G47.10 Fatty liver K76.0 Elevated blood pressure reading without diagnosis of hypertension R03.0 Additional Codes LELAND-7 Assessment Billing - LELAND-7 Assessment Tool: LELAND-7 Assessment 56201 ([id number]) PHQ-9 - 57540 - PHQ-9 Billing: Yes ([id number]) Assessment & Plan Assessment & Plan (1) Physical exam: Code(s): Z00.00 - Encounter for general adult medical examination without abnormal findings Category: Medical Plan: Patient is up-to-date on all recommended routine screenings and vaccinations for her age. Healthy diet and regular exercise is encouraged. (2) Chronic GERD: Code(s): K21.9 - Gastro-esophageal reflux disease without esophagitis Category: Medical Plan: Avoid trigger foods such as citrus, tomato products, soda, caffeine, spicy foods and other foods that may be irritating to your stomach. Avoid laying flat 3-4 hours after eating and elevate the head of the bed 30 degrees to prevent acid from moving into the esophagus. Continue on Omeprazole. Continue to follow with GI. (3) Cervical cancer screening: Comment: pap neg 2020, no hx abnls Code(s): Z12.4 - Encounter for screening for malignant neoplasm of cervix Category: Medical Plan: Due in March and has appt with Printing Press Machinist. (4) Skin lesion: Comment: ref to derm; basal cell CA-awaiting Mohs surgery 07/12. Code(s): L98.9 - Disorder of the skin and subcutaneous tissue, unspecified Category: Medical Plan: Continue to follow with dermatology. (5) Family history of abdominal aortic aneurysm (AAA): Code(s): Z82.49 - Family history of ischemic heart disease and other diseases of the circulatory system Category: Medical Plan: Ordered for screening ultrasound for further evaluation (6) Hypersomnolence: Code(s): G47.10 - Hypersomnia, unspecified Category: Medical Plan: Plan to order for home sleep study for further evaluation. (7) Fatty liver: Code(s): K76.0 - Fatty (change of) liver, not elsewhere classified Category: Medical Plan: Healthy diet and regular exercise is encouraged. (8) Elevated blood pressure reading without diagnosis of hypertension: Code(s): R03.0 - Elevated blood-pressure reading, without diagnosis of hypertension Category: Medical Plan: Patient to continue monitoring blood pressure at home and if exceeds 140/90 to reach out to the office. She would like to avoid medication at this time even though blood pressure in the office is elevated at 160/88. Avoid salt intake and encourage healthy diet and regular exercise. She will have a follow up with the nurses in 3 weeks with a blood pressure cuff and see us in the office in 3 months. Plan The management plan for hypertension includes lifestyle changes such as reducing salt intake, engaging in regular physical activity, and monitoring blood pressure at home with a prescribed cuff. Follow-up is planned to reassess blood pressure control. A sleep study is scheduled to investigate sleep disturbances, with further management to be determined based on the results. Routine cancer screenings and an ultrasound for aortic aneurysm are part of the preventative care strategy. Blood work, including fasting tests and A1c, will be performed to evaluate metabolic health. A referral to a radiophone operator is made to support dietary management and address fatty liver concerns. This note was constructed using voice recognition software. While every effort has been made to ensure accuracy and music sound light technician, still areas may have been included sometimes these areas may affect the content or meeting of the given symptoms. Total time spent caring for the patient today was 30 minutes. This includes time spent before the visit reviewing the chart, time spent during the visit, and time spent after the visit and documentation. Patient was informed and verbally consented to the use of an ambient scribe for clinic note documentation during this visit. Orders: Orders Complete Blood Count Auto Diff Today K21.9 - Gastro-esophageal reflux disease without esophagitis, Z00.00 - Encounter for general adult medical examination without abnormal findings Comprehensive Met. Panel Today Z13.1 - Encounter for screening for diabetes mellitus TSH reflex Free T4 Today Z13.29 - Encounter for screening for other suspected endocrine disorder US abdominal aortic aneurysm Today Z82.49 - Family history of ischemic heart disease and other diseases of the circulatory system RT home sleep study Today G47.10 - Hypersomnia, unspecified Vitamin B12 and Folate Today Z13.21 - Encounter for screening for nutritional disorder Vitamin D 25-OH Total Today Z13.21 - Encounter for screening for nutritional disorder Lipid Panel Today Z13.220 - Encounter for screening for lipoid disorders Hemoglobin A1c Today E11.65 - Type 2 diabetes mellitus with hyperglycemia, Z13.1 - Encounter for screening for diabetes mellitus Referrals Corn Chip Maker Nutrition Referral E66.3 - Overweight Medications: New blood pressure monitor As directed; to check bp 1 ea 0RF R03.0 - Elevated blood-pressure reading, without diagnosis of hypertension
[2024-12-30 09:59] VITALS: BP 144/72; PULSE 64; O2SAT 99; BMI 27.1
[2024-12-30 10:44] VITALS: BP 168/88
== END 2024-12-30 10:53 | disposition home or self-care (01) ==
LOC: HO.HMCH 09:55
PROVIDERS: PCP Internal Medicine
DX: Z00.00 Encounter for general adult medical examination without abnormal findings (principal); K21.9 Gastro-esophageal reflux disease without esophagitis; Z12.4 Encounter for screening for malignant neoplasm of cervix; L98.9 Disorder of the skin and subcutaneous tissue, unspecified; Z82.49 Family history of ischemic heart disease and other diseases of the circulatory system; G47.10 Hypersomnia, unspecified; K76.0 Fatty (change of) liver, not elsewhere classified; R03.0 Elevated blood-pressure reading, without diagnosis of hypertension

== ENCOUNTER 2024-12-30 09:54 | Outpatient (REF) | payer OTHER, SELFPAY ==
[2024-12-30 11:44] LABS: MANUAL DIFF FLAG NO
[2024-12-30 12:01] LABS: Hematocrit 37.0 % (37.0-47.0); Hemoglobin 12.4 g/dl (12.0-16.0); Imm Gran Abs Auto 0.00 X10*3/uL (0.00-0.03); Imm Gran Pct Auto 0.0 % (0.0-0.4); Lymphocytes Absolute Auto 1.5 X10*3/uL (1.2-4.9); Mean Corpuscular HGB Conc 33.5 g/dl (31.0-35.0); Mean Corpuscular Hemoglobin 27.8 pg (27.0-33.0); Mean Corpuscular Volume 83.0 fL (80.0-98.0); NRBC Abs Auto 0.000 X10*3/uL (0.0-0.012); NRBC Pct Auto 0.0 /100WBC (0.0-0.2); Platelet Count 324 X10*3/uL (160-400); Red Blood Count 4.46 X10*6/uL (4.20-5.50); White Blood Count 3.6 X10*3/uL (4.8-10.8)
[2024-12-30 12:09] LABS: Hemoglobin A1C 129.1123 umol/L; Total Hemoglobin (HGBA1C) 3289.5662 umol/L
[2024-12-30 12:37] LABS: Alanine Aminotransferase 34 U/L (0-31); Albumin Level 4.2 g/dL (3.5-5.0); Alkaline Phosphatase 73 U/L (39-117); Anion Gap 12 (12-20); Aspartate Amino Transferase 29 U/L (5-31); Blood Urea Nitrogen 14 mg/dL (9-16); Calcium 9.3 mg/dL (8.4-10.2); Carbon Dioxide 27 mmol/L (22-29); Chloride 105 mmol/L (96-108); Cholesterol 260 mg/dL (<200); Estimated Glomerular Filt Rate > 60; HDL Cholesterol 45 mg/dL (>40); Potassium 4.4 mmol/L (3.3-5.1); Sodium 140 mmol/L (135-145); Total Protein 7.6 g/dL (6.5-8.0); Triglycerides 194 mg/dL (<150)
[2024-12-30 12:59] LABS: Folate 6.6 ng/mL (> or = 4.0); Vitamin B12 347 pg/mL (200-900)
== END 2024-12-30 09:55 | disposition home or self-care (01) ==
LOC: HO.LAB 09:54
PROVIDERS: PCP Internal Medicine
DX: Z00.00 Encounter for general adult medical examination without abnormal findings (principal); E11.65 Type 2 diabetes mellitus with hyperglycemia; K21.9 Gastro-esophageal reflux disease without esophagitis; L98.9 Disorder of the skin and subcutaneous tissue, unspecified; G47.10 Hypersomnia, unspecified; K76.0 Fatty (change of) liver, not elsewhere classified; R03.0 Elevated blood-pressure reading, without diagnosis of hypertension; Z82.49 Family history of ischemic heart disease and other diseases of the circulatory system
CPT/HCPCS: 36415; 80053; 80061; 82306; 82607; 82746; 83036; 84443; 85025; 96127

== ENCOUNTER 2025-01-02 10:13 | Outpatient (AMB) | payer OTHER, SELFPAY ==
--- OUTSIDE RECORDS SUMMARY | 2024-07-15 09:40 | XMS_ITS ---
Author Organization [facility] Address [address] [place] [address] Care Team Providers Care Tool Shaper Setup Operator Name Role Phone Gianna Diaz Primary Care Provider UnaJordin Merchant Unavailable [phone] REASON FOR VISIT gerd,dysphagia, screening,hx polyps Encounters Encounter Location Date Provider Diagnosis [facility] [place] [address] [place], [place] [phone] 07/15/2024 Jordin Mixon Colon cancer scree rosy [...] Notes * DELMI HARVEY:1965 (59 yo F)Acc No.[id number]:07/15/2024 EGD and COL/MAC Patient: AJ HECK Provider: Nain Mixon MD :1965 A ge:59 Y S ex:Female Date:07/15/2024 Address:[address] [place] [address] Pcp:Gianna Srivastava PAC Subjective: * Chief Complaints: [...] 4 5378 DIAGNOSTIC COLONOSCOPY, Modifiers: 33 , 02691 UPPER GI ENDOSCOPY, BIOPSY * * The named appointment provid er may or may not be the originator of this progress note, and it is not deemed complete until electronically signed by the appointment provider. Sign off status: Pending * Provider: Nain Mixon MD Date: 0 07/15/2024 Generated for Denton dominguez/Mirtha/Donnellitting on: 0 01/02/2025 11:10 AM EDT
[2025-01-02 10:40] VITALS: BMI 27.6
--- NOTE | 2025-01-02 10:40 | A.OFFVIS_ITS ---
VS Expanded 01/02/25 10:40 01/02/25 10:49 Height 5 ft 2 in 5 ft 2 in Weight 150 lb 12.739 oz 151 lb BMI 27.6 27.6 Intake Visit Reasons: Overweight Allergies avocado (AVOCADO) Allergy (Severe, Verified 12/30/24 10:18) ANAPHYLAXIS acetaminophen Allergy (Intermediate, Verified 12/30/24 10:18) Per patient- ONLY if taken in large amounts, RASH oxycodone (From PERCOCET) Allergy (Intermediate, Verified 12/30/24 10:18) NAUSEA/VOMITING flu vaccine Allergy (Severe, Uncoded 12/30/24 10:18) SOB, Palpitations, Near Syncope Nutrition Presentation Details: Pt presents for MNT for overweight Pt reports having fatty liver, high tot chol and tg working on choosing fiber rich foods, enjoys high sugar foods B: [place]/or cereal rice/chex/raisin bran or oatmeal/milk 2% or whole milk 3/pm: skips or yogurt/DD and ice coffee unhealthy choice 7 pm : pork chop /potato/veg food frequency fruits:0-3/wk ve-2x/m dairy: 2/d fish; not including physical activity :ADL +walking at work etoh/smoking- denies BS Monitoring Most Recent Diabetes Results: Cholesterol, (<200) 260 mg/dL H 12/30/24 HDL Cholesterol, (>40) 45 mg/dL 12/30/24 Triglycerides, (<150) 194 mg/dL H 12/30/24 Creatinine, (0.5-1.4) 0.86 mg/dL 12/30/24 BUN, (9-16) 14 mg/dL 12/30/24 Sodium, (135-145) 140 mmol/L 12/30/24 Potassium, (3.3-5.1) 4.4 mmol/L 12/30/24 Chloride, (96-108) 105 mmol/L 12/30/24 Carbon Dioxide, (22-29) 27 mmol/L 12/30/24 Calcium, (8.4-10.2) 9.3 mg/dL 12/30/24 AST, (5-31) 29 U/L 12/30/24 ALT, (0-31) 34 U/L H 12/30/24 Total Protein, (6.5-8.0) 7.6 g/dL 12/30/24 Albumin, (3.5-5.0) 4.2 g/dL 12/30/24 [facility]-Uvkgxts-FlQuyen Equation Height: 5 ft 2 in Weight: 151 lb Resting Metabolic Rate: 1227.05 Calculated Activity Level: Sedentary Calories Needed to Maintain Weight: 1472.46 Diagnosis Nutrition problem #1: altered nutrition labs and excessive energy intake (from sugars) As related to (etiology) #1: diagnosis As evidenced by (sign/symptom) #1: abnormal lab values and food recall [facility] Medical History Pneumonia Basal cell carcinoma Chronic GERD History of gallbladder disease Surgical History History of facial surgery H/O colonoscopy (~07/15/24) Hx of excision of mass Hx of reduction mammoplasty Hx of umbilical hernia repair History of cholecystectomy Family History Mother No problems noted. Father AAA (abdominal aortic aneurysm) Sister Mental health disorder Substance use disorder Lung cancer Kidney cancer, primary, with metastasis from kidney to other site Anal cancer Social History Household Members: Spouse Housing: House Are you a primary home health care physician to a significant other at home: No Do you presently have visiting nurse or other home services: No Alcohol intake: never Patient Tobacco Use Status: Never used Tobacco Tobacco use type: Cigarette e-Cigarette/Vaping Use: Never Used Second Hand Smoke Exposure: No service: No Current occupational status: employed Cognitive needs: No Hearing needs: No Vision needs: Yes (glasses) Female Reproductive History Menstrual Age of Menarche: 16 Assessment & Plan Assessment & Plan (1) Overweight: Code(s): E66.3 - Overweight Category: Medical Plan: Wt: 69 Kg ( 01/09 ) Est kcal needs as per MSJ: 1500 (40% carb, 30% protein/fat) Est fluid needs as per 25-30 ml/d: 2100 Est prot per day as per 1 g/kg bw: 70 Recommend fiber intake : 8-10 g per day and gradually increase to 25-28 g per day for women and 35-38 g for men or as tolerated Recommend sodium intake per day : less than 2300 mg Educated patient on: ( R = reviewed V = verbalizes understanding N/R = needs review N/A = not applicable * Food sources of carbohydrate, adequate serving sizes and its role in various health conditions: R * Differences between complex carbohydrates a simple carbohydrates, role of fiber in diet: R * Lean protein sources of foods: R * Differences between types of fats and role in diet (mono on saturated fat fatty acids, saturated fatty acids, trans fats): R * Food sources of sodium in salt and healthy modifications for heart health in kidney health: R V R/V * Vitamins and minerals: R V N/R * Healthy plate method concept: R * Physical activity: Benefits a precaution: R * Hypoglycemia protocol (rule of 15): R V N/R * Dietary prevention of Hyperglycemia: R Patient Instructions: Do not add sugar to the foods Aim at less than 45 g carb at dinner following healthy plate method and for snack 20 g carb or less choose beverages low in sugar- see list of optiosn Coding Level of Care Code Nutr Indiv Intake (52906) Diagnoses Overweight E66.3 Time Spent (min) 30
[2025-01-03 11:34] VITALS: BMI 27.6
== END 2025-01-02 11:18 | disposition home or self-care (01) ==
LOC: HO.ENCR 10:14
PROVIDERS: Visit Provider Dietitian, Registered
DX: E66.3 Overweight (principal)

== ENCOUNTER → 2025-01-02 10:13 | Outpatient (BNVA) | payer OTHER, SELFPAY | PROVIDERS: Visit Provider Dietitian, Registered | DX: E66.3 Overweight (principal) | CPT/HCPCS: 97802 ==

== ENCOUNTER 2025-01-19 13:28 | Outpatient (REF) | payer OTHER, SELFPAY ==
--- OUTSIDE RECORDS SUMMARY | 2024-07-15 09:40 | XMS_ITS ---
Author Organization [facility] Address [address] [place] [address] Care Team Providers Care Home Therapy Teacher Name Role Phone Gianna Diaz Primary Care Provider UnaJordin Merchant Unavailable [phone] REASON FOR VISIT gerd,dysphagia, screening,hx polyps Encounters Encounter Location Date Provider [place] [facility] [place] [address] [place], [place] [phone] 07/15/2024 Jordin Mixon Colon cancer scree rosy [...] Notes * DELMI HARVEY:1965 (59 yo F)Acc No.[id number]:07/15/2024 EGD and COL/MAC Patient: AJ HECK Provider: Nain Mixon MD :1965 A ge:59 Y S ex:Female Date:07/15/2024 Address:[address] [place] [address] Pcp:Gianna Srivastava PAC Subjective: * Chief Complaints: [...] 4 5378 DIAGNOSTIC COLONOSCOPY, Modifiers: 33 , 76426 UPPER GI ENDOSCOPY, BIOPSY * * The named appointment provid er may or may not be the originator of this progress note, and it is not deemed complete until electronically signed by the appointment provider. Sign off status: Pending * Provider: Nain Mixon MD Date: 0 07/15/2024 Generated for Denton dominguez/Mirtha/Donnellitting on: 0 01/19/2025 02:44 PM EDT
--- NOTE | ~2025-01-19 | US_ITS ---
EXAMINATION: MM DIAGNOSTIC DIGITAL BREAST TOMOSYNTHESIS, LEFT Limited left breast ultrasound. CLINICAL INFORMATION: Call back from screening for asymmetry in the inferior left breast on MLO view posterior depth. COMPARISON: Mammography: [facility] on PACS. TECHNIQUE: Digital breast tomosynthesis is performed in both the craniocaudal and mediolateral oblique views along with computer-aided detection (CAD). Synthesized 2D images are generated from the tomosynthesis. FINDINGS: There are scattered areas of fibroglandular density (ACR BI-RADS breast composition Category b). Previously seen asymmetry inferior left breast posterior depth on MLO view does not persist on additional imaging projections and likely represented overlapping breast tissue. No suspicious calcifications or other abnormal findings. Targeted color Doppler ultrasound scanning in the lower outer breast lower central breast 4-8 o'clock demonstrates normal fibronodular breast tissue. There is no sonographic abnormal finding. US/US breast LT limited mamm only IMPRESSION: No mammographic evidence of malignancy. ASSESSMENT: BI-RADS BI-RADS 1 - Negative RECOMMENDATION: 1 year F/U Results were provided to the patient at time of visit by the technologist. This patient's information was entered into a reminder system with a target due date for their next mammogram. Electronically signed by: Cortney Barksdale DO 01/19/2025 02:29 PM EDT
--- OUTSIDE RECORDS SUMMARY | 2025-01-19 14:45 | XMS_ITS | Patient Health Record ---
Author Organization [facility] Address [address] [place] [address] Care Team Providers Care Air Twist Operator Name Role Phone Gianna Diaz Primary Care Provider Jordin Rogers Unavailable [phone] Allergies Allergen (clinical drug ingredient) Drug/Non Drug Allergy documented on EMR Reaction Allergy Type Onset Date Status acetaminophen / oxycodone Percocet Unknown Drug Allergy Active Results Component Value Reference Range Notes Pathology Reviewed date:11/25/2024 03:01:35 PM Interpretation: Performing Lab:[facility], [address] [place] [phone] Notes/Report: Reason For Referral No Information Medications Medication SIG (Take, Route, Fr equency, Duration) Notes Start Date End Date Status Omeprazole 40 MG TAKE 1 CAPSULE BY [facility] DAILY 0.5 TO 1 HOUR BEFORE BREAKFAST for 90 Active Multivitamin Adult A ctive Fiber Active Immunizations Vaccine Route Administration Date Status [...] Problem Status W/U Status Risk Notes Problem Colon cancer screening (969332116) Colon cancer screening (Z12.11) Active confirmed Problem History of polyp of colon (situation) (453707420) Personal history of colonic polyps (Z86.010) Active confirmed Problem Dysphagia (09984251) Dysphagia (R13.10) Active confirmed Problem Erosive esophagitis (68314605) Erosive esophagitis (K22.10) Active confirmed Problem Gastroesophageal reflux disease (815454679) GERD (gastroesophag eal reflux disease) (K21.9) Active confirmed Vital Signs Temperature 97.7 degrees Fahrenheit 11/25/2024 Blood pressure diastolic 01 mm Hg 11/25/2024 Height 5 ft 2 in in 11/25/2024 Blood pressure systolic 001 mm Hg 11/25/2024 Weight 149.2 lbs 11/25/2024 BMI 27.29 kg/m2 11/25/2024 Encounters Encounter Location Date Provider Diagnosis [facility] Outpatient [address] [place] [phone] 07/15/2024 Jordin Mixon Colon cancer screeni ng Z12.11 ; Personal history of colonic polyps Z86.0100 ; Diverticulosis of large intestine without perforation or abscess without bleeding K57.30 ; Other hemorrhoids K64.8 ; Dysphagia R13.10 ; Gastro-esophageal reflux disease with esophagitis, without bleeding K21.00 and Hiatal hernia K44.9 [facility] [address] [place] [phone] 04/27/2024 Jordin Mixon GERD (gastroesophage al reflux disease) K21.9 ; Dysphagia R13.10 ; Colon cancer screening Z12.11 and Personal history of colonic polyps Z86.010 [facility] [address] [place] [phone] 11/25/2024 Jordin Mixon Erosive esophagitis K22.10 ; GERD (gastroesophageal reflux disease) K21.9 ; Colon cancer screening Z12.11 and Personal history of colonic polyps Z86.010 [facility] [address] [place] [phone] 07/18/2024 Jordin Mixon [facility] [address] [place] [phone] 07/22/2024 Jordin Mixon Assessments Encounter Date Diagnosis (ICD Code) Assessment Notes Treatment Notes Treatment Clinical Notes Section Notes 07/15/2024 Colon cancer screening (ICD-10 - Z12.11) 07/15/2024 Personal history of colonic polyps (ICD-10 - Z86.0100) 04/27/2024 Dysphagia (ICD-10 - R13.10) Overall, Aj appears well. Given her history of a polyp removed over 5 years ago, I did recommend a followup colonoscopy for further screening purposes. We did review the rationale for that in regard to colon cancer prevention. I also recommended an upper endoscopy on the same day given her history of reflux and occasional symptoms of esophageal obstruction. We reviewed that it wpou;d be important to exclude the presence of any significant esophagitis, Olmedo's esophagus, esophageal stricture, or esophageal ring. I did advise her that if there is any evidence of an esophageal stricture or ring I can perform balloon dilation at that same time. Full consent was obtained from her for both procedures, including risks of bleeding and perforation. The procedures will be done monitored anesthesia care. Aj was comfortable with this plan. Thank you again for allowing me to participate in Aj's care. I shall continue to keep you advised of her progress. 04/27/2024 GERD (gastroesophageal reflux disease) (ICD-10 - K21.9) Overall, Aj appears well. Given her history of a polyp removed over 5 years ago, I did recommend a followup colonoscopy for further screening purposes. We did review the rationale for that in regard to colon cancer prevention. I also recommended an upper endoscopy on the same day given her history of reflux and occasional symptoms of esophageal obstruction. We reviewed that it wpou;d be important to exclude the presence of any significant esophagitis, Olmedo's esophagus, esophageal stricture, or esophageal ring. I did advise her that if there is any evidence of an esophageal stricture or ring I can perform balloon dilation at that same time. Full consent was obtained from her for both procedures, including risks of bleeding and perforation. The procedures will be done monitored anesthesia care. Aj was comfortable with this plan. Thank you again for allowing me to participate in Aj's care. I shall continue to keep you advised of her progress. 11/25/2024 Erosive esophagitis (ICD-10 - K22.10) Stay [...] you advised of her progress. 11/25/2024 GERD (gastroesophageal reflux disease) (ICD-10 - K21.9) Overall, Aj [...] to keep you advised of her progress. 07/15/2024 Diverticulosis of large intestine without perforation or abscess without bleeding (ICD-10 - K57.30) 04/27/2024 Colon cancer screening (ICD-10 - Z12.11) Overall, Aj appears well. Given her history of a polyp removed over 5 years ago, I did recommend a followup colonoscopy for further screening purposes. We did review the rationale for that in regard to colon cancer prevention. I also recommended an upper endoscopy on the same day given her history of reflux and occasional symptoms of esophageal obstruction. We reviewed that it wpou;d be important to exclude the presence of any significant esophagitis, Olmedo's esophagus, esophageal stricture, or esophageal ring. I did advise her that if there is any evidence of an esophageal stricture or ring I can perform balloon dilation at that same time. Full consent was obtained from her for both procedures, including risks of bleeding and perforation. The procedures will be done monitored anesthesia care. Aj was comfortable with this plan. Thank [...] to keep you advised of her progress. 07/15/2024 Other hemorrhoids (ICD-10 - K64.8) 04/27/2024 Personal history of colonic polyps (ICD-10 - Z86.010) Overall, Aj appears well. Given her history of a polyp removed over 5 years ago, I did recommend a followup colonoscopy for further screening purposes. We did review the rationale for that in regard to colon cancer prevention. I also recommended an upper endoscopy on the same day given her history of reflux and occasional symptoms of esophageal obstruction. We reviewed that it wpou;d be important to exclude the presence of any significant esophagitis, Olmedo's esophagus, esophageal stricture, or esophageal ring. I did advise her that if there is any evidence of an esophageal stricture or ring I can perform balloon dilation at that same time. Full consent was obtained from her for both procedures, including risks of bleeding and perforation. The procedures will be done monitored anesthesia care. Aj was comfortable with this plan. Thank you again for allowing me to participate in Aj's care. I shall continue to keep you advised of her progress. 11/25/2024 Personal history of colonic polyps (ICD-10 - Z86.010) Overall, jA appears well. We did review the findings [...] to keep you advised of her progress. 07/15/2024 Dysphagia (ICD-10 - R13.10) 07/15/2024 Gastro-esophageal reflux disease with esophagitis, without bleeding (ICD-10 - K21.00) 07/15/2024 Hiatal hernia (ICD-10 - K44.9) Plan Of Treatment Future Test Test Name Order Date UPPER GI ENDOSCOPY BALLOOON DILATION OF ESOPH 04/27/2024 COLONOSCOPY 04/27/2024 Insurance Providers Payer Name Payer Address Payer Phone Subscriber Number Group Number Insured Name Patient Relationship to Insured Coverage Start Date Coverage End Date [facility] [address] [facility] [place] [phone] [id number] SHIRALAJ Self - patient is the insured Medical (General) History Medical History History ICD Code Denies [place],DM,CVA,Lung disease,renal dise ase Skin cancer by nose -future surgery to [facility] with cyst on head Colonoscopy with Dr. Haja dexter age 52 with removal of a serrated polyp- told to repeat in 5 years GERD- Erosive esophagitis-EG D 06/2024- moderate size hiatal hernia- Biopsies were negative for Olmedo's esophagus and negative for eosinophilic esophagitis Negative screening colonoscopy in 06/2024 Surgical History Surgery Date(Month/Year) Basal cell skin cancer Extra breast tissue removed Cysts on scalp Umbilical hernia repair x 2 Cholecystectomy
== END 2025-01-19 13:29 | disposition home or self-care (01) ==
LOC: HO.MAMMO 13:28
DX: N64.89 Other specified disorders of breast (principal)
CPT/HCPCS: 76642; 77061; 77065

== ENCOUNTER → 2025-01-19 13:30 | Outpatient (BNV) | payer OTHER, SELFPAY | PROVIDERS: Visit Provider Internal Medicine | DX: R92.8 Other abnormal and inconclusive findings on diagnostic imaging of breast (principal) | CPT/HCPCS: 76642; 77061; 77065 ==

== ENCOUNTER → 2025-01-20 08:56 | Outpatient (BNVA) | payer OTHER, SELFPAY | DX: Z01.30 Encounter for examination of blood pressure without abnormal findings (principal) | CPT/HCPCS: G0463; 99499 ==

== ENCOUNTER 2025-02-28 11:45 | Outpatient (REF) | payer OTHER, SELFPAY ==
[2025-03-01 11:31] LABS: Chlamydia pneumoniae PCR Not Detected (Not Detect.); Coronavirus 229E PCR Not Detected (Not Detect.); Coronavirus HKU1 PCR Not Detected (Not Detect.); Coronavirus NL63 PCR Not Detected (Not Detect.); Coronavirus OC43 PCR Not Detected (Not Detect.); RSV PCR Not Detected (Not Detect.); Rhino/Enterovirus PCR Not Detected (Not Detect.)
[2025-03-01 11:36] LABS: Influenza A H1 PCR Not Detected (Not Detect.); Influenza A H1-2009 PCR Not Detected (Not Detect.); Influenza A H3 PCR Not Detected (Not Detect.); SARS-CoV-2 PCR Detected (Not Detect.)
== END 2025-02-28 11:46 | disposition home or self-care (01) ==
LOC: HO.LAB 11:45
PROVIDERS: Physician Assistant
DX: N30.01 Acute cystitis with hematuria (principal); J06.9 Acute upper respiratory infection, unspecified; R05.9 Cough, unspecified; R51.9 Headache, unspecified; R09.81 Nasal congestion
CPT/HCPCS: 81003; 87086; 87633

== ENCOUNTER 2025-02-28 11:45 | Outpatient (AMB) | payer OTHER, SELFPAY ==
--- OUTSIDE RECORDS SUMMARY | 2024-07-15 09:40 | XMS_ITS ---
Author Organization [facility] Address [address] [place] [address] Care Team Providers Care Sales Operations Name Role Phone Gianna Diaz Primary Care Provider UnaJordin Merchant Unavailable [phone] REASON FOR VISIT gerd,dysphagia, screening,hx polyps Encounters Encounter Location Date Provider Diagnosis [facility] Outpatient [address] [place], [place] [phone] 07/15/2024 Jordin Mixon Colon cancer scree rosy [...] Notes * DELMI HARVEY:1965 (59 yo F)Acc No.[id number]:07/15/2024 EGD and COL/MAC Patient: AJ HECK Provider: Nain Mixon MD :1965 A ge:59 Y S ex:Female Date:07/15/2024 Address:[address] [place] [address] Pcp:Gianna Srivastava PAC Subjective: * Chief Complaints: [...] 4 5378 DIAGNOSTIC COLONOSCOPY, Modifiers: 33 , 31737 UPPER GI ENDOSCOPY, BIOPSY * * The named appointment provid er may or may not be the originator of this progress note, and it is not deemed complete until electronically signed by the appointment provider. Sign off status: Pending * Provider: Nain Mixon MD Date: 0 07/15/2024 Generated for Denton dominguez/Mirtha/Donnellitting on: 1 02:21 PM EDT
[2025-02-28 12:07] VITALS: BP 118/64; PULSE 76; TEMP 36.8; O2SAT 97; BMI 26.0
--- NOTE | 2025-02-28 12:07 | AM.OFFWIN_ITS ---
Intake Vital Signs 02/28/25 12:07 Height 5 ft 2 in Weight 142 lb BMI 26.0 BP 118/64 Blood Pressure Location Rt brachial Position Sitting Pulse 76 Pulse Source Pulse Oximeter Temp 98.2 F Temp Source Oral Pulse Oximetry (%) 97 Oxygen Delivery Method Room Air Intake Visit Reasons: ep sick since thursday cough headache Intake Note: pt presents with sinus congestion with yellow drainage, dry cough and headaches for 4 days Also c/o burning with voiding beginning yesterday Patient Tobacco Use Status: Never used Tobacco Allergies avocado (AVOCADO) Allergy (Severe, Verified 12/30/24 10:18) ANAPHYLAXIS acetaminophen Allergy (Intermediate, Verified 12/30/24 10:18) Per patient- ONLY if taken in large amounts, RASH oxycodone (From PERCOCET) Allergy (Intermediate, Verified 12/30/24 10:18) NAUSEA/VOMITING Influenza Virus Vaccines Adverse Reaction (Severe, Verified 02/28/25 12:09) SOB, palpitations, near syncope Do you need a note to return to daycare/school/sports/work: Yes HPI HPI Comments History of Present Illness Details History - The patient is a 59-year-old female pr esenting with symptoms of a viral upper respiratory infection and concerns about a possible urinary tract infection. - Viral upper respiratory infection: Sym ptoms began with a sore throat 5 days ago, followed by extreme fatigue and a severe headache 4 days ago. - The headache was described as more sev ere than previous migraines, with a sensation of the head about to explode. - The patient felt feverish but did not measure her temperature and experienced dehydration despite adequate water intake. - The patient experienced dizziness and lightheadedness upon standing, with a sensation of head congestion progressing to chest congestion. - The patient had pneumonia in April and is concerned about recurrence due to similar symptoms. - Urinary tract infection: Symptoms of b urning during urination began on Thursday, with low back pain reported on Thursday and Thursday. Physical Exam General: Cooperative, healthy appearing, comfortable and no acute distress Orientation/consciousness: Patient oriented x3 Limitations: No limitations Head: Normal to inspection, but reports severe headache and head congestion Ears: Hearing grossly normal bilaterally, external ears normal and TM's normal bilaterally Nose: Normal external nose present, Normal nares present Face and sinus: Normal facial exam and Yes sinuses nontender Mouth: Normal oral and palatal mucosa present and moist mucous membranes Throat: Yes tonsils normal, Yes uvula midline. Posterior oropharynx erythema, no exudates Eyes: Appearance normal, both eyes and all related structures Neck: Normal visual inspection, full ROM Respiratory: Clear to auscultation bilaterally. Normal respiratory effort, able to speak in complete sentences, not actively coughing, no respiratory distress, not tachypneic, no tripod positioning and no use of accessory muscles Cardiovascular: Regular rate and rhythm. Normal S1 and S2 Skin: No rashes or lesions noted Neuro: Patient oriented x3, normal gait Extremities: Normal to inspection and Yes no clubbing, cyanosis or edema Review of Systems - General: Reports fatigue and feverish feeling, denies measuring temperature - HEENT: Reports severe headache, sore t hroat, and head congestion - Respiratory: Reports chest congestion, denies cough - Cardiovascular: Denies chest pain - Gastrointestinal: Denies nausea or vom iting - Genitourinary: Reports burning during urination, low back pain - Neurological: Reports dizziness and li ghtheadedness All systems reviewed and are unremarkable except as noted in HPI [facility] Medical History Pneumonia Basal cell carcinoma Chronic GERD History of gallbladder disease Surgical History History of facial surgery H/O colonoscopy (~07/15/24) Hx of excision of mass Hx of reduction mammoplasty Hx of umbilical hernia repair History of cholecystectomy Family History Mother No problems noted. Father AAA (abdominal aortic aneurysm) Sister Mental health disorder Substance use disorder Lung cancer Kidney cancer, primary, with metastasis from kidney to other site Anal cancer Social History Household Members: Spouse Housing: House Are you a primary health care recruiter to a significant other at home: No Do you presently have visiting nurse or other home services: No Alcohol intake: never Patient Tobacco Use Status: Never used Tobacco Tobacco use type: Cigarette e-Cigarette/Vaping Use: Never Used Second Hand Smoke Exposure: No service: No Current occupational status: employed Cognitive needs: No Hearing needs: No Vision needs: Yes (glasses) Female Reproductive History Menstrual Age of Menarche: 16 Physical Exam Vital Signs: Last Vital Signs Temp 98.2 F 02/28/25 12:07 Pulse 76 02/28/25 12:07 BP 118/64 02/28/25 12:07 Pulse Ox 97 02/28/25 12:07 Oxygen Delivery Method Room Air 02/28/25 12:07 BMI result Body Mass Index 26.0 Assessment & Plan Assessment & Plan (1) URI, acute: Code(s): J06.9 - Acute upper respiratory infection, unspecified Plan: Patient was informed and verbally consented to the use of an ambient scribe for clinic note documentation during this visit. Viral Upper Respiratory Infection - VSS, pt well appearing and PE unremarkable. - Sent viral panel - Recommended symptomatic treatment with Sudafed and Caitie-D for congestion management. - Advised alternating Tylenol and Advil for headache relief, with specific dosing intervals. (2) UTI (urinary tract infection): Code(s): N39.0 - Urinary tract infection, site not specified Qualifiers: Urinary tract infection type: acute cystitis Hematuria presence: with hematuria Qualified Code(s): N30.01 - Acute cystitis with hematuria Plan: Urinary Tract Infection - UA with neg leuks, neg nitrties and + blood, will treat based on symptoms. - Initiated empirical antibiotic therapy with cefuroxime, pending urine culture results. - Advised to discontinue omeprazole temporarily to avoid interaction with an tibiotics. - Recommended alternative antacid options such as TUMS or Pepcid. Orders: Orders Resp Pathogen Panel - [facility] Today J06.9 - Acute upper respiratory infection, unspecified Urine Culture Today N39.0 - Urinary tract infection, site not specified Medications: New cefuroxime axetil 500 mg PO Q12H 10 tabs 0RF Coding Level of Care Code Est Pt Level 4 (97538) Diagnoses URI, acute J06.9 Acute cystitis with hematuria N30.01 Urinary tract infection type: acute cystitis Hematuria presence: with hematuria
--- OUTSIDE RECORDS SUMMARY | 2025-02-28 14:22 | XMS_ITS | Patient Health Record ---
Author Organization [facility] Address [address] [place] [address] Care Team Providers Care Telemedicine Physician Name Role Phone Gianna Diaz Primary Care Provider Jordin Rogers Unavailable [phone] Allergies Allergen (clinical drug ingredient) Drug/Non Drug Allergy documented on EMR Reaction Allergy Type Onset Date Status acetaminophen / oxycodone Percocet Unknown Drug Allergy Active Results Component Value Reference Range Notes Pathology Reviewed date:11/25/2024 03:01:35 PM Interpretation: Performing Lab:[facility], [address] [place] [phone] Notes/Report: Reason For Referral No Information Medications Medication SIG (Take, Route, Fr equency, Duration) Notes Start Date End Date Status Omeprazole 40 MG TAKE 1 CAPSULE BY [facility] DAILY 0.5 TO 1 HOUR BEFORE BREAKFAST; Duration: 90 Active Multivitamin Adult A ctive Fiber [...] Status Risk Notes Problem Colon cancer screening (673992222) Colon cancer screening (Z12.11) Active confirmed Problem History of polyp of colon (situation) (612450462) Personal history of colonic polyps (Z86.010) Active confirmed Problem Dysphagia (31185209) Dysphagia (R13.10) Active confirmed Problem Erosive esophagitis (20129269) Erosive esophagitis (K22.10) Active confirmed Problem Gastroesophageal reflux disease (070945766) GERD (gastroesophag eal reflux disease) (K21.9) Active confirmed Vital Signs Temperature 97.7 degrees Fahrenheit 11/25/2024 Blood pressure diastolic 01 mm Hg 11/25/2024 Height 5 ft 2 in in 11/25/2024 Blood pressure systolic 001 mm Hg 11/25/2024 Weight 149.2 lbs 11/25/2024 BMI 27.29 kg/m2 11/25/2024 Encounters Encounter Location Date Provider Diagnosis [facility] Outpatient [address] [place] [phone] 07/15/2024 Jordin Mixon Colon cancer screeni ng Z12.11 ; Personal history of colonic polyps Z86.0100 ; Diverticulosis of large intestine without perforation or abscess without bleeding K57.30 ; Other hemorrhoids K64.8 ; Dysphagia R13.10 ; Gastro-esophageal reflux disease with esophagitis, without bleeding K21.00 and Hiatal hernia K44.9 [facility] [address] [place] [phone] 04/27/2024 Jordin Mixon GERD (gastroesophage al reflux disease) K21.9 ; Dysphagia R13.10 ; Colon cancer screening Z12.11 and Personal history of colonic polyps Z86.010 [facility] [address] [place] [phone] 11/25/2024 Jordin Mixon Erosive esophagitis K22.10 ; GERD (gastroesophageal reflux disease) K21.9 ; Colon cancer screening Z12.11 and Personal history of colonic polyps Z86.010 [facility] [address] [place] [phone] 07/18/2024 Jordin Mixon [facility] [address] [place] [phone] 07/22/2024 Jordin Mixon Assessments Encounter Date Diagnosis [...] Insured Coverage Start Date Coverage End Date [facility] [address] [facility] [place] [phone] [id number] SHIRALAJ Self - patient is the insured Medical (General) History Medical History History ICD Code Denies [place],DM,CVA,Lung disease,renal dise ase Skin cancer by nose [...]
== END 2025-02-28 13:24 | disposition home or self-care (01) ==
PROVIDERS: Visit Provider Physician Assistant
DX: J06.9 Acute upper respiratory infection, unspecified (principal); N30.01 Acute cystitis with hematuria; Z13.9 Encounter for screening, unspecified

== ENCOUNTER 2025-03-07 09:36 | Outpatient (REF) | payer OTHER, SELFPAY ==
--- OUTSIDE RECORDS SUMMARY | 2024-07-15 09:40 | XMS_ITS ---
Author Organization [facility] Address [address] [place] [address] Care Team Providers Care Script Girl Name Role Phone Gianna Diaz Primary Care Provider UnaJordin Merchant Unavailable [phone] REASON FOR VISIT gerd,dysphagia, screening,hx polyps Encounters Encounter Location Date Provider Diagnosis [facility] [place] [address], [place] [phone] 07/15/2024 Jordin Mixon Colon cancer scree rosy [...] Notes * DELMI HARVEY:1965 (59 yo F)Acc No.[id number]:07/15/2024 EGD and COL/MAC Patient: AJ HECK Provider: Nain Mixon MD :1965 A ge:59 Y S ex:Female Date:07/15/2024 Address:[address] [place] [address] Pcp:Gianna Srivastava PAC Subjective: * Chief Complaints: [...] 4 5378 DIAGNOSTIC COLONOSCOPY, Modifiers: 33 , 02901 UPPER GI ENDOSCOPY, BIOPSY * * The named appointment provid er may or may not be the originator of this progress note, and it is not deemed complete until electronically signed by the appointment provider. Sign off status: Pending * Provider: Nain Mixon MD Date: 0 07/15/2024 Generated for Denton dominguez/Mirtha/Abimaelsmitting on: 1 10:48 AM EDT
--- NOTE | ~2025-03-07 | US_ITS ---
CLINICAL HISTORY: Z82.49 - Family history of ischemic heart disease and other diseases of ... US abdominal aorta screening with duplex and color Doppler Comparison: US - US ABDOMEN LIMITED - 05/14/24 20:52 EST Findings: Aorta diameter proximal: 2.4 x 2.1 cm. Aorta diameter mid: 1.9 x 1.7 cm. Aorta diameter distal: 1.6 x 1.4 cm. Right common iliac artery maximum diameter: 1.1 x 1.6 cm. Left common iliac artery maximum diameter: 1.2 x 1.0 cm. Normal color Doppler. Normal arterial spectral Doppler waveforms peak systolic velocity 84.3th cm/sec Impression: 1. No abdominal aortic aneurysm. This document has been electronically signed by: Rk Isabel MD on 03/08/2025 11:36:47
--- OUTSIDE RECORDS SUMMARY | 2025-03-07 10:49 | XMS_ITS | Patient Health Record ---
Author Organization [facility] Address [address] [place] [address] Care Team Providers Care Digital Forensics Examiner Name Role Phone Gianna Diaz Primary Care Provider Jordin Rogers Unavailable [phone] Allergies Allergen (clinical drug ingredient) Drug/Non Drug Allergy documented on EMR Reaction Allergy Type Onset Date Status acetaminophen / oxycodone Percocet Unknown Drug Allergy Active Results Component Value Reference Range Notes Pathology Reviewed date:11/25/2024 03:01:35 PM Interpretation: Performing Lab:[facility] [place], [address] [place] [phone] Notes/Report: Reason For Referral No Information Medications Medication SIG (Take, Route, Fr equency, Duration) Notes Start Date End Date Status Omeprazole 40 MG TAKE 1 CAPSULE BY [facility] DAILY 0.5 TO 1 HOUR BEFORE BREAKFAST; [...] Status Risk Notes Problem Colon cancer screening (549651707) Colon cancer screening (Z12.11) Active confirmed Problem History of polyp of colon (situation) (846434714) Personal history of colonic polyps (Z86.010) Active confirmed Problem Dysphagia (01340617) Dysphagia (R13.10) Active confirmed Problem Erosive esophagitis (28921732) Erosive esophagitis (K22.10) Active confirmed Problem Gastroesophageal reflux disease (027841920) GERD (gastroesophag eal reflux disease) (K21.9) Active confirmed Vital Signs Temperature 97.7 degrees Fahrenheit 11/25/2024 Blood pressure diastolic 01 mm Hg 11/25/2024 Height 5 ft 2 in in 11/25/2024 Blood pressure systolic 001 mm Hg 11/25/2024 Weight 149.2 lbs 11/25/2024 BMI 27.29 kg/m2 11/25/2024 Encounters Encounter Location Date Provider Diagnosis [facility] Outpatient [address] [place] [phone] 07/15/2024 Jordin Mixon Colon cancer screeni ng Z12.11 ; Personal history of colonic polyps Z86.0100 ; Diverticulosis of large intestine without perforation or abscess without bleeding K57.30 ; Other hemorrhoids K64.8 ; Dysphagia R13.10 ; Gastro-esophageal reflux disease with esophagitis, without bleeding K21.00 and Hiatal hernia K44.9 [facility] [address] [place] [phone] 04/27/2024 Jordin Mixon GERD (gastroesophage al reflux disease) K21.9 ; Dysphagia R13.10 ; Colon cancer screening Z12.11 and Personal history of colonic polyps Z86.010 [facility] [address] [place] [phone] 11/25/2024 Jordin Mixon Erosive esophagitis K22.10 ; GERD (gastroesophageal reflux disease) K21.9 ; Colon cancer screening Z12.11 and Personal history of colonic polyps Z86.010 [facility] [address] [place] [phone] 07/18/2024 Jordin Mixon [facility] [address] [place] [phone] 07/22/2024 Jordin Mixon Assessments Encounter Date Diagnosis [...] Insured Coverage Start Date Coverage End Date [facility] [address] [facility] [place] [phone] [id number] SHIRALAJ Self - patient is the insured Medical (General) History Medical History History ICD Code Denies [place],DM,CVA,Lung disease,renal dise ase Skin cancer by nose [...]
== END 2025-03-07 09:37 | disposition home or self-care (01) ==
LOC: HO.US 09:36
DX: Z82.49 Family history of ischemic heart disease and other diseases of the circulatory system (principal)
CPT/HCPCS: 76706

== ENCOUNTER → 2025-03-07 09:40 | Outpatient (BNV) | payer OTHER, SELFPAY | PROVIDERS: Visit Provider Radiology Diagnostic Radiology | DX: Z82.49 Family history of ischemic heart disease and other diseases of the circulatory system (principal) | CPT/HCPCS: 76706 ==

== ENCOUNTER 2025-03-08 14:18 | Outpatient (AMB) | payer OTHER, SELFPAY ==
--- OUTSIDE RECORDS SUMMARY | 2024-07-15 09:40 | XMS_ITS ---
Author Organization [facility] Address [address] [place] [address] Care Team Providers Care [place] Pumper Name Role Phone Gianna Diaz Primary Care Provider UnaJordin Merchant Unavailable [phone] REASON FOR VISIT gerd,dysphagia, screening,hx polyps Encounters Encounter Location Date Provider Diagnosis [facility] [place] [address] [place], [place] [phone] 07/15/2024 Jordin Mixon Colon cancer scree rosy [...] Notes * DELMI HARVEY:1965 (59 yo F)Acc No.[id number]:07/15/2024 EGD and COL/MAC Patient: AJ HECK Provider: Nain Mixon MD :1965 A ge:59 Y S ex:Female Date:07/15/2024 Address:[address] [place] [address] Pcp:Gianna Srivastava PAC Subjective: * Chief Complaints: [...] 4 5378 DIAGNOSTIC COLONOSCOPY, Modifiers: 33 , 32682 UPPER GI ENDOSCOPY, BIOPSY * * The named appointment provid er may or may not be the originator of this progress note, and it is not deemed complete until electronically signed by the appointment provider. Sign off status: Pending * Provider: Nain Mixon MD Date: 0 07/15/2024 Generated for Denton dominguez/Mirtha/Donnellitting on: 1 08:30 PM EDT
[2025-03-08 14:20] VITALS: BMI 25.9
--- NOTE | 2025-03-08 14:20 | A.OFFVIS_ITS ---
VS Expanded 03/08/25 14:20 Height 5 ft 2 in Weight 141 lb 8.588 oz BMI 25.9 Intake Visit Reasons: overweight/fatty liver//hypertension Allergies avocado (AVOCADO) Allergy (Severe, Verified 12/30/24 10:18) ANAPHYLAXIS acetaminophen Allergy (Intermediate, Verified 12/30/24 10:18) Per patient- ONLY if taken in large amounts, RASH oxycodone (From PERCOCET) Allergy (Intermediate, Verified 12/30/24 10:18) NAUSEA/VOMITING Influenza Virus Vaccines Adverse Reaction (Severe, Verified 02/28/25 12:09) SOB, palpitations, near syncope Nutrition Presentation Details: Pt presents for for MNT f/u overweight , fatty liver , HTN Pt reports working on making diet modifications reducing on sugars/empty calorie foods and including fiber rich food including omega 3 sources of foods Reports doing well, motivated physical activity : ADL PFSH Medical History Pneumonia Basal cell carcinoma Chronic GERD History of gallbladder disease Surgical History History of facial surgery H/O colonoscopy (~07/15/24) Hx of excision of mass Hx of reduction mammoplasty Hx of umbilical hernia repair History of cholecystectomy Family History Mother No problems noted. Father AAA (abdominal aortic aneurysm) Sister Mental health disorder Substance use disorder Lung cancer Kidney cancer, primary, with metastasis from kidney to other site Anal cancer Social History Household Members: Spouse Housing: House Are you a primary care transition mgr to a significant other at home: No Do you presently have visiting nurse or other home services: No Alcohol intake: never Patient Tobacco Use Status: Never used Tobacco Tobacco use type: Cigarette e-Cigarette/Vaping Use: Never Used Second Hand Smoke Exposure: No service: No Current occupational status: employed Cognitive needs: No Hearing needs: No Vision needs: Yes (glasses) Female Reproductive History Menstrual Age of Menarche: 16 Assessment & Plan Assessment & Plan (1) Overweight: Code(s): E66.3 - Overweight Category: Medical Plan: Wt: 69 Kg ( 01/09) , 64.5 (03/11) Est kcal needs as per MSJ:1200- 1500 (40% carb, 30% protein/fat) Est fluid needs as per 25-30 ml/d: 2000 Est prot per day as per 1 g/kg bw: 60-65 Recommend fiber intake : 8-10 g per day and gradually increase to 25-28 g per day for women and 35-38 g for men or as tolerated Recommend sodium intake per day : less than 2300 mg Educated patient on: ( R = reviewed V = verbalizes understanding N/R = needs review N/A = not applicable * Food sources of carbohydrate, adequate serving sizes and its role in various health conditions: R * Differences between complex carbohydrates a simple carbohydrates, role of fiber in diet: R * Lean protein sources of foods: R * Differences between types of fats and role in diet (mono on saturated fat fatty acids, saturated fatty acids, trans fats): R * Food sources of sodium in salt and healthy modifications for heart health in kidney health: R * Vitamins and minerals: R * Healthy plate method concept: R * Physical activity: Benefits a precaution: R * Hypoglycemia protocol (rule of 15): R V N/R * Dietary prevention of Hyperglycemia: R Patient Instructions: Continue as established choosing no sugar added foods Work on reducing saturated fats (pre fried food items, pastries/cookies, amount of butter - Coding Level of Care Code Nutr Indiv Subseq (12791) Diagnoses Overweight E66.3 Time Spent (min) 30
--- OUTSIDE RECORDS SUMMARY | 2025-03-08 20:31 | XMS_ITS | Patient Health Record ---
Author Organization [facility] Address [address] [place] [address] Care Team Providers Care Cloth Weaver Name Role Phone Gianna Diaz Primary Care Provider Jordin Rogers Unavailable [phone] Allergies Allergen (clinical drug ingredient) Drug/Non Drug Allergy documented on EMR Reaction Allergy Type Onset Date Status acetaminophen / oxycodone Percocet Unknown Drug Allergy Active Results Component Value Reference Range Notes Pathology Reviewed date:11/25/2024 03:01:35 PM Interpretation: Performing Lab:[facility], [address] [place] [phone] Notes/Report: Reason For Referral No Information Medications Medication SIG (Take, Route, Fr equency, Duration) Notes Start Date End Date Status Omeprazole 40 MG TAKE 1 CAPSULE BY [facility] DAILY 0.5 TO 1 HOUR BEFORE [...] Status Risk Notes Problem Colon cancer screening (976464502) Colon cancer screening (Z12.11) Active confirmed Problem History of polyp of colon (situation) (070727579) Personal history of colonic polyps (Z86.010) Active confirmed Problem Dysphagia (97494552) Dysphagia (R13.10) Active confirmed Problem Erosive esophagitis (64652533) Erosive esophagitis (K22.10) Active confirmed Problem Gastroesophageal reflux disease (515402633) GERD (gastroesophag eal reflux disease) (K21.9) Active confirmed Vital Signs Temperature 97.7 degrees Fahrenheit 11/25/2024 Blood pressure diastolic 01 mm Hg 11/25/2024 Height 5 ft 2 in in 11/25/2024 Blood pressure systolic 001 mm Hg 11/25/2024 Weight 149.2 lbs 11/25/2024 BMI 27.29 kg/m2 11/25/2024 Encounters Encounter Location Date Provider Diagnosis [facility] [address] [place] [id number] 07/15/2024 Jordin Mixon Colon cancer screeni ng Z12.11 ; Personal history of colonic polyps Z86.0100 ; Diverticulosis of large intestine without perforation or abscess without bleeding K57.30 ; Other hemorrhoids K64.8 ; Dysphagia R13.10 ; Gastro-esophageal reflux disease with esophagitis, without bleeding K21.00 and Hiatal hernia K44.9 [facility] [address] [place] [phone] 04/27/2024 Jordin Mxion GERD (gastroesophage al reflux disease) K21.9 ; Dysphagia R13.10 ; Colon cancer screening Z12.11 and Personal history of colonic polyps Z86.010 [facility] [address] [place] [phone] 11/25/2024 Jordin Mixon Erosive esophagitis K22.10 ; GERD (gastroesophageal reflux disease) K21.9 ; Colon cancer screening Z12.11 and Personal history of colonic polyps Z86.010 [facility] [address] [place] [phone] 07/18/2024 Jordin Mixon [facility] [address] [place] [phone] 07/22/2024 Jordin Mixon Assessments Encounter Date Diagnosis [...] Insured Coverage Start Date Coverage End Date [facility] [address] [facility] [place] [phone] [id number] SHIRALAJ Self - patient is the insured Medical (General) History Medical History History ICD Code Denies [place],DM,CVA,Lung disease,renal dise ase Skin cancer by nose [...]
== END 2025-03-08 14:50 | disposition home or self-care (01) ==
LOC: HO.ENCR 14:18
PROVIDERS: Visit Provider Dietitian, Registered
DX: E66.3 Overweight (principal)

== ENCOUNTER → 2025-03-08 14:18 | Outpatient (BNVA) | payer OTHER, SELFPAY | PROVIDERS: Visit Provider Dietitian, Registered | DX: E66.3 Overweight (principal) | CPT/HCPCS: 97803 ==

== ENCOUNTER → 2025-03-20 15:34 | Outpatient (REF) | payer OTHER, SELFPAY ==
--- OUTSIDE RECORDS SUMMARY | 2024-07-15 08:40 | XMS_ITS ---
Author Organization [facility] Address [address] [place] [address] Care Team Providers Care Clinical Massage Therapist Name Role Phone Gianna Diaz Primary Care Provider UnaJordin Merchant Unavailable [phone] REASON FOR VISIT gerd,dysphagia, screening,hx polyps Encounters Encounter Location Date Provider Diagnosis [facility] Outpatient [address] [place], [place] [phone] 07/15/2024 Jordin Mixon Colon cancer scree rosy [...] Notes * DELMI HARVEY:1965 (59 yo F)Acc No.[id number]:07/15/2024 EGD and COL/MAC Patient: AJ HECK Provider: Nain Mixon MD :1965 A ge:59 Y S ex:Female Date:07/15/2024 Address:[address] [place] [address] Pcp:Gianna Srivastava PAC Subjective: * Chief Complaints: [...] 4 5378 DIAGNOSTIC COLONOSCOPY, Modifiers: 33 , 82742 UPPER GI ENDOSCOPY, BIOPSY * * The named appointment provid er may or may not be the originator of this progress note, and it is not deemed complete until electronically signed by the appointment provider. Sign off status: Pending * Provider: Nain Mixon MD Date: 0 07/15/2024 Generated for Denton dominguez/Mirtha/Donnellitting on: 1 05/20/2024 04:46 PM EST
--- OUTSIDE RECORDS SUMMARY | 2025-03-20 16:47 | XMS_ITS | Patient Health Record ---
Author Organization [facility] Address [address] [place] [address] Care Team Providers Care Accountant Assistant Name Role Phone Gianna Diaz Primary Care Provider Jordin Rogers Unavailable [phone] Allergies Allergen (clinical drug ingredient) Drug/Non Drug Allergy documented on EMR Reaction Allergy Type Onset Date Status acetaminophen / oxycodone Percocet Unknown Drug Allergy Active Results Component Value Reference Range Notes Pathology Reviewed date:11/25/2024 03:01:35 PM Interpretation: Performing Lab:[facility], [address] [place] [phone] Notes/Report: Reason For Referral No Information Medications Medication SIG (Take, Route, Fr equency, Duration) Notes Start Date End Date Status Omeprazole 40 MG TAKE 1 CAPSULE BY [facility] DAILY 0.5 TO 1 HOUR [...] Status Risk Notes Problem Colon cancer screening (477568583) Colon cancer screening (Z12.11) Active confirmed Problem History of polyp of colon (situation) (441815571) Personal history of colonic polyps (Z86.010) Active confirmed Problem Dysphagia (15207028) Dysphagia (R13.10) Active confirmed Problem Erosive esophagitis (38832257) Erosive esophagitis (K22.10) Active confirmed Problem Gastroesophageal reflux disease (706162940) GERD (gastroesophag eal reflux disease) (K21.9) Active confirmed Vital Signs Temperature 97.7 degrees Fahrenheit 11/25/2024 Blood pressure diastolic 01 mm Hg 11/25/2024 Height 5 ft 2 in in 11/25/2024 Blood pressure systolic 001 mm Hg 11/25/2024 Weight 149.2 lbs 11/25/2024 BMI 27.29 kg/m2 11/25/2024 Encounters Encounter Location Date Provider Diagnosis [facility] [address] [place] [id number] 07/15/2024 Jordin Mixon Colon cancer screeni ng Z12.11 ; Personal history of colonic polyps Z86.0100 ; Diverticulosis of large intestine without perforation or abscess without bleeding K57.30 ; Other hemorrhoids K64.8 ; Dysphagia R13.10 ; Gastro-esophageal reflux disease with esophagitis, without bleeding K21.00 and Hiatal hernia K44.9 [facility] [address] [place] [phone] 04/27/2024 Jordin Mixon GERD (gastroesophage al reflux disease) K21.9 ; Dysphagia R13.10 ; Colon cancer screening Z12.11 and Personal history of colonic polyps Z86.010 [facility] [address] [place] [phone] 11/25/2024 Jordin Mixon Erosive esophagitis K22.10 ; GERD (gastroesophageal reflux disease) K21.9 ; Colon cancer screening Z12.11 and Personal history of colonic polyps Z86.010 [facility] [address] [place] [phone] 07/18/2024 Jordin Mixon [facility] [address] [place] [phone] 07/22/2024 Jordin Mixon Assessments Encounter Date Diagnosis [...] Insured Coverage Start Date Coverage End Date [facility] [address] [facility] [place] [phone] [id number] SHIRALAJ Self - patient is the insured Medical (General) History Medical History History ICD Code Denies [place],DM,CVA,Lung disease,renal dise ase Skin cancer by nose [...]
== END ==
LOC: HO.SL 15:34
DX: R06.83 Snoring (principal); G47.10 Hypersomnia, unspecified
CPT/HCPCS: 95806

== ENCOUNTER → 2025-03-20 15:42 | Outpatient (BNV) | payer OTHER, SELFPAY | PROVIDERS: Visit Provider Internal Medicine | DX: R06.83 Snoring (principal) | CPT/HCPCS: 95806 ==

== ENCOUNTER 2025-03-22 11:14 | Outpatient (REF) | payer OTHER, SELFPAY ==
--- OUTSIDE RECORDS SUMMARY | 2024-07-15 08:40 | XMS_ITS ---
Author Organization [facility] Address [address] [place] [address] Care Team Providers Care Golf Club Weigher Name Role Phone Gianna Diaz Primary Care Provider UnaJordin Merchant Unavailable [phone] REASON FOR VISIT gerd,dysphagia, screening,hx polyps Encounters Encounter Location Date Provider Diagnosis [facility] [place] Out[place] [address], [place] [phone] 07/15/2024 Jordin Mixon Colon cancer scree rosy Z12.11 ; Personal history of colonic polyps Z86.0100 ; Diverticulosis of large intestine without perforation or abscess without bleeding K57.30 ; Other hemorrhoids K64.8 ; Dysphagia R13.10 ; Gastro-esophageal reflux disease with esophagitis, without bleeding K21.00 and Hiatal hernia K44.9 Assessments Encounter Date Diagnosis (ICD Code) Assessment Notes Treatment Notes Treatment Clinical Notes Section Notes 07/15/2024 Colon cancer screening (ICD-10 - Z12.11) 07/15/2024 Personal history of colonic polyps (ICD-10 - Z86.0100) 07/15/2024 Diverticulosis of large intestine without perforation or abscess without bleeding (ICD-10 - K57.30) 07/15/2024 Other hemorrhoids (ICD-10 - K64.8) 07/15/2024 Dysphagia (ICD-10 - R13.10) 07/15/2024 Gastro-esophageal reflux disease with esophagitis, without bleeding (ICD-10 - K21.00) 07/15/2024 Hiatal hernia (ICD-10 - K44.9) Plan Of Treatment No Information Progress Notes * DELMI HARVEY:1965 (59 yo F)Acc No.[id number]:07/15/2024 EGD and COL/MAC Patient: AJ HECK Provider: Nain Mixon MD :1965 A ge:59 Y S ex:Female Date:07/15/2024 Address:[address] [place] [address] Pcp:Gianna Srivastava PAC Subjective: * Chief Complaints: * 1 . Gerd,dysphagia, screening,hx polyps. * Medical History: Objective: * Vitals: Assessment: * Assessment: 1. C olon cancer screening - Z12.11 (Primary) 2 . P ersonal history of colonic polyps - Z86.0100 3 . D iverticulosis of large intestine without perforation or abscess without bleeding - K57.30 4 . O ther hemorrhoids - K64.8 5. D ysphagia - R13.10 6 . G margaux-esophageal reflux disease with esophagitis, without bleeding - K21.00 7 . H iatal hernia - K44.9 Plan: * Treatment: * Procedure Codes: 4 5378 DIAGNOSTIC COLONOSCOPY, Modifiers: 33 , 04338 UPPER GI ENDOSCOPY, BIOPSY * * The named appointment provid er may or may not be the originator of this progress note, and it is not deemed complete until electronically signed by the appointment provider. Sign off status: Pending * Provider: Nain Mixon MD Date: 0 07/15/2024 Generated for Denton dominguez/Mirtha/Abimaelsmitting on: 1 05/22/2024 01:38 PM EST
[2025-03-22 12:36] LABS: Cholesterol 164 mg/dL (<200); HDL Cholesterol 50 mg/dL (>40); Triglycerides 157 mg/dL (<150)
--- OUTSIDE RECORDS SUMMARY | 2025-03-22 13:38 | XMS_ITS | Patient Health Record ---
Author Organization [facility] Address [address] [place] [address] Care Team Providers Care Senior Electrical Design Engineer Name Role Phone Gianna Diaz Primary Care Provider Jordin Rogers Unavailable [phone] Allergies Allergen (clinical drug ingredient) Drug/Non Drug Allergy documented on EMR Reaction Allergy Type Onset Date Status acetaminophen / oxycodone Percocet Unknown Drug Allergy Active Results Component Value Reference Range Notes Pathology Reviewed date:11/25/2024 03:01:35 PM Interpretation: Performing Lab:[facility], [address] [place] [phone] Notes/Report: Reason For Referral No Information Medications Medication SIG (Take, Route, Fr equency, Duration) Notes Start Date End Date Status Omeprazole 40 MG TAKE 1 CAPSULE BY [facility] DAILY 0.5 TO 1 [...] Status Risk Notes Problem Colon cancer screening (353065544) Colon cancer screening (Z12.11) Active confirmed Problem History of polyp of colon (situation) (002896427) Personal history of colonic polyps (Z86.010) Active confirmed Problem Dysphagia (42378314) Dysphagia (R13.10) Active confirmed Problem Erosive esophagitis (10389817) Erosive esophagitis (K22.10) Active confirmed Problem Gastroesophageal reflux disease (693699450) GERD (gastroesophag eal reflux disease) (K21.9) Active confirmed Vital Signs Temperature 97.7 degrees Fahrenheit 11/25/2024 Blood pressure diastolic 01 mm Hg 11/25/2024 Height 5 ft 2 in in 11/25/2024 Blood pressure systolic 001 mm Hg 11/25/2024 Weight 149.2 lbs 11/25/2024 BMI 27.29 kg/m2 11/25/2024 Encounters Encounter Location Date Provider Diagnosis [facility] [address] [place] [id number] 07/15/2024 Jordin Mixon Colon cancer screeni ng Z12.11 ; Personal history of colonic polyps Z86.0100 ; Diverticulosis of large intestine without perforation or abscess without bleeding K57.30 ; Other hemorrhoids K64.8 ; Dysphagia R13.10 ; Gastro-esophageal reflux disease with esophagitis, without bleeding K21.00 and Hiatal hernia K44.9 [facility] [address] [place] [phone] 04/27/2024 Jordin Mixon GERD (gastroesophage al reflux disease) K21.9 ; Dysphagia R13.10 ; Colon cancer screening Z12.11 and Personal history of colonic polyps Z86.010 [facility] [address] [place] [phone] 11/25/2024 Jordin Mixon Erosive esophagitis K22.10 ; GERD (gastroesophageal reflux disease) K21.9 ; Colon cancer screening Z12.11 and Personal history of colonic polyps Z86.010 [facility] [address] [place] [phone] 07/18/2024 Jordin Mixon [facility] [address] [place] [phone] 07/22/2024 Jordin Mixon Assessments Encounter Date Diagnosis [...] Insured Coverage Start Date Coverage End Date [facility] [address] [facility] [place] [phone] [id number] SHIRALAJ Self - patient is the insured Medical (General) History Medical History History ICD Code Denies [place],DM,CVA,Lung disease,renal dise ase Skin cancer by nose [...]
== END 2025-03-22 11:15 | disposition home or self-care (01) ==
LOC: HO.LAB 11:14
DX: E78.00 Pure hypercholesterolemia, unspecified (principal)
CPT/HCPCS: 36415; 80061

== ENCOUNTER 2025-03-27 08:43 | Outpatient (AMB) | payer OTHER, SELFPAY ==
--- OUTSIDE RECORDS SUMMARY | 2024-07-15 08:40 | XMS_ITS ---
Author Organization [facility] Address [address] [place] [address] Care Team Providers Care Sonography Technician Name Role Phone Gianna Diaz Primary Care Provider UnaJordin Merchant Unavailable [phone] REASON FOR VISIT gerd,dysphagia, screening,hx polyps Encounters Encounter Location Date Provider Diagnosis [facility] [place] [address] [place], [place] [phone] 07/15/2024 Jordin Mixon Colon cancer scree rosy [...] Notes * DELMI HARVEY:1965 (59 yo F)Acc No.[id number]:07/15/2024 EGD and COL/MAC Patient: AJ HECK Provider: Nain Mixon MD :1965 A ge:59 Y S ex:Female Date:07/15/2024 Address:[address] [place] [address] Pcp:Gianna Srivastava PAC Subjective: * Chief Complaints: [...] 4 5378 DIAGNOSTIC COLONOSCOPY, Modifiers: 33 , 51594 UPPER GI ENDOSCOPY, BIOPSY * * The named appointment provid er may or may not be the originator of this progress note, and it is not deemed complete until electronically signed by the appointment provider. Sign off status: Pending * Provider: Nain Mixon MD Date: 0 07/15/2024 Generated for Denton dominguez/Mirtha/Donnellitting on: 1 05/27/2024 09:06 AM EST
--- NOTE | 2025-03-27 08:52 | A.OFFPC_ITS ---
Vital Signs 03/27/25 08:53 03/27/25 09:23 Height 5 ft 2 in Weight 143 lb 8 oz BMI 26.2 BP 132/80 158/82 H Blood Pressure Location Lt brachial Lt brachial Position Sitting Sitting Pulse 81 Pulse Source Pulse Oximeter Temp 96.9 F Temp Source Temporal Artery Scan Pulse Oximetry (%) 99 Oxygen Delivery Method Room Air Intake Visit Reasons: annual exam Intake Note: Patient is here today for a physical. System Administration Advisor Required: No Fire Assistant: Not Required per policy Accompanied by: Self / Same As Patient Allergies avocado (AVOCADO) Allergy (Severe, Verified 03/27/25 08:59) ANAPHYLAXIS acetaminophen Allergy (Intermediate, Verified 03/27/25 08:59) Per patient- ONLY if taken in large amounts, RASH oxycodone (From PERCOCET) Allergy (Intermediate, Verified 03/27/25 08:59) NAUSEA/VOMITING Influenza Virus Vaccines Adverse Reaction (Severe, Verified 03/27/25 08:59) SOB, palpitations, near syncope Medication List - Last Reconciled 03/27/25 by Gianna Srivastava PA-C atorvastatin (Lipitor) 10 mg PO BEDTIME blood pressure monitor As directed; to check bp multivitamin 1 tab PO DAILY omeprazole 40 mg PO DAILY psyllium husk (Daily Fiber) 0.52 grams PO DAILY Tobacco use date assessed: 03/27/25 Dental Screening Dental Screen Date: 12/30/24 HPI annual exam HPI Details 59-year-old female with past medical his tory of GERD last seen 12/2024 coming in for follow up. Presenting for follow-up on lab results and a blood pressure check. The patient is experiencing significant stress and emotional distress due to her sister's diagnosis of stage 4 metastatic cancer. She has been acting as a caregiver for her sister, her sister's children, and her parents, which has led to her feeling tired and overwhelmed. She reports waking up crying and feels it would be helpful to see a therapist, acknowledging that her entire family could benefit from counseling. Regarding hyperlipidemia, she was started on atorvastatin after her bad cholesterol was 177 and triglycerides were 194. Her recent labs showed improvement, with an LDL of 83 and triglycerides of 157. For blood pressure, the patient reports she was checking it at home and readings were good, mostly in the 120s over 70s-80s, but she stopped after a recent COVID-19 infection. She notes there were occasional higher readings, but the diastolic number was not significantly elevated. [facility] Medical History Pneumonia Basal cell carcinoma Chronic GERD History of gallbladder disease Surgical History History of facial surgery H/O colonoscopy (~07/15/24) Hx of excision of mass Hx of reduction mammoplasty Hx of umbilical hernia repair History of cholecystectomy Family History Mother No problems noted. Father AAA (abdominal aortic aneurysm) Sister Mental health disorder Substance use disorder Lung cancer Kidney cancer, primary, with metastasis from kidney to other site Anal cancer Social History Household Members: Spouse Housing: House Are you a primary career development counselor to a significant other at home: No Do you presently have visiting nurse or other home services: No Alcohol intake: never Patient Tobacco Use Status: Never used Tobacco Tobacco use type: Cigarette e-Cigarette/Vaping Use: Never Used Second Hand Smoke Exposure: No service: No Current occupational status: employed Cognitive needs: No Hearing needs: No Vision needs: Yes (glasses) Female Reproductive History Menstrual Age of Menarche: 16 Questionnaire Thrive Questionnaire Date Thrive assessed: 12/30/24 I am a: Patient What is your living situation today?: I have a steady place to live Within the past 12 months, did the food you bought not last and you didn't have the money to get more?: I choose not to answer this question Within the past 12 months, did you worry whether your food would run out before you got money to buy more?: I choose not to answer this question Do you have trouble paying for medicines?: I choose not to answer this question Do you have trouble getting transportation to medical appointments?: I choose not to answer this question Do you have trouble paying your heating and electricity bill?: I choose not to answer this question Do you have trouble taking care of your child, family member or friend?: I choose not to answer this question Do you have trouble with day-to-day activities such as bathing, preparing meals, shopping, managing finances, etc.?: I choose not to answer this question Are you currently unemployed and looking for a job?: I choose not to answer this question Are you interested in more education?: I choose not to answer this question Please select the resources that you would like help with: None Currently or been in a relationship where the following occur: No concerns reported THRIVE Score: 0 LELAND-7 AMB Questionnaire LELAND-7 Date LELAND - 7 assessed: 12/30/24 Source: Developed by Drs. Jordin Leon, Letty Ray, Eliu Mitchell and colleagues, with an educational enedina from [employer]. Review of Systems Const Denies body aches, Denies chills, Denies fever(s), Denies headache(s) and Denies poor appetite Eyes Reports no additional complaints ENT Denies dizziness and Denies headache(s) Card Denies chest pain, Denies lightheadedness and Denies dyspnea Resp Denies cough and Denies dyspnea GI Denies abdominal pain, Denies dyspepsia, Denies heartburn, Denies nausea and Denies vomiting Reports no additional complaints Musc Reports no additional complaints and Denies abnormal gait Skin/Breast Reports system reviewed and no additional complaints, except as documented Neuro Denies abnormal gait, Denies dizziness and Denies headache(s) Psych Reports no additional complaints Physical exam (Primary Care) Vital Signs: Last Vital Signs Temp 96.9 F 03/27/25 08:53 Pulse 81 03/27/25 08:53 BP 158/82 H 03/27/25 09:23 Pulse Ox 99 03/27/25 08:53 Oxygen Delivery Method Room Air 03/27/25 08:53 BMI result Body Mass Index 26.2 Tobacco/Smoking Status: Tobacco use Status Tobacco use date assessed 03/27/25 03/27/25 08:58 Patient Tobacco Use Status Never used Tobacco 03/27/25 08:58 Tobacco use type Cigarette 03/27/25 08:58 e-Cigarette/Vaping Use Never Used 03/27/25 08:58 Thrive Assessment: Date of Thrive Assessment Date Thrive assessed 12/30/24 03/27/25 08:58 Currently or been in a relationship where the following occur: No concerns reported Const General: cooperative, healthy appearing, comfortable and no acute distress Orientation/consciousness: patient oriented x3 HENMT Head: Yes normocephalic Ears: hearing grossly normal bilaterally General nose exam: Normal external nose present Eyes General: appearance normal, both eyes and all related structures Conjunctivae: conjunctivae normal Neck Neck: Yes full ROM and Yes no lymphadenopathy Resp Effort & Inspection: normal respiratory effort Auscultation: clear to auscultation bilaterally, no crackles, no rales, no rhonchi and no wheezes Cardio Rate: regular rate Rhythm: regular rhythm Skin General skin exam: no rashes or lesions noted Neuro General: patient oriented x3 Gait exam (Neuro): Normal gait present Extrem General: Yes normal to inspection, Yes full ROM and No edema Psych Affect: normal affect Attitude: cooperative Insight: Good insight present (Psych) Judgement: Good judgement present (Psych) Coding Level of Care Code Est Pt Level 3 (45570) Diagnoses Skin lesion L98.9 Family history of abdominal aortic aneurysm (AAA) Z82.49 Hypersomnolence G47.10 Fatty liver K76.0 Elevated blood pressure reading without diagnosis of hypertension R03.0 Depression F32.A Hypercholesterolemia E78.00 Assessment & Plan Assessment & Plan (1) Skin lesion: Comment: ref to derm; basal cell CA-awaiting Mohs surgery 07/12. Code(s): L98.9 - Disorder of the skin and subcutaneous tissue, unspecified Category: Medical Plan: Saw [facility] and had scalp cyst removed and has follow up appointment today to remove stitches. (2) Family history of abdominal aortic aneurysm (AAA): Code(s): Z82.49 - Family history of ischemic heart disease and other diseases of the circulatory system Category: Medical Plan: Recent US was normal. Continue to monitor at this time. (3) Hypersomnolence: Code(s): G47.10 - Hypersomnia, unspecified Category: Medical Plan: She completed the sleep study last week and results are not yet available. She is concerned it may not be accurate due to equipment issues. We will have to wait to see the results. (4) Fatty liver: Code(s): K76.0 - Fatty (change of) liver, not elsewhere classified Category: Medical Plan: Healthy diet and regular exercise is encouraged. She is also requesting ultrasound monitoring for fatty liver disease given patient's family history of liver cancer (5) Elevated blood pressure reading without diagnosis of hypertension: Code(s): R03.0 - Elevated blood-pressure reading, without diagnosis of hypertension Category: Medical Plan: The patient's blood pressure in the office was elevated at 158/82 mmHg, which is likely attributable to her current high stress levels. The patient will monitor her blood pressure at home for the next week and send the readings through the patient portal for review. I provided her with educational material on the proper technique for taking blood pressure readings at home. She was previously monitoring her blood pressures at home which were in the typical 120-130 systolic and 70-80 diastolic ranges. She will reach out 1 week with blood pressure readings. 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 She agrees that seeing a therapist would be helpful. A referral will be made for counseling, and the scheduling department will contact her to make an appointment. (7) Hypercholesterolemia: Code(s): E78.00 - Pure hypercholesterolemia, unspecified Category: Medical Plan: The patient has shown an excellent response to atorvastatin, with her LDL cholesterol decreasing from 177 to 83 mg/dL and triglycerides from 194 to 157 mg/dL. She will continue the atorvastatin for now, and a refill with additional refills has been sent to the pharmacy. We will re-evaluate her cholesterol at her four-month follow-up. Plan This note was constructed using voice recognition software. While every effort has been made to ensure accuracy and energy efficiency engineer, still areas may have been included sometimes these areas may affect the content or meeting of the given symptoms. Total time spent caring for the patient today was 20 minutes. This includes time spent before the visit reviewing the chart, time spent during the visit, and time spent after the visit and documentation. Patient was informed and verbally consented to the use of an ambient scribe for clinic note documentation during this visit. Orders: Orders Lipid Panel 4 Months E78.00 - Pure hypercholesterolemia, unspecified Comprehensive Met. Panel 4 Months K76.0 - Fatty (change of) liver, not elsewhere classified US abdomen limited Today K76.0 - Fatty (change of) liver, not elsewhere classi fied, Z80.0 - Family history of malignant neoplasm of digestive organs Referrals Counseling Referral F32.A - Depression, unspecified Medications: Refilled atorvastatin (Lipitor) 10 mg PO BEDTIME 90 tabs 1RF
[2025-03-27 08:53] VITALS: BP 132/80; PULSE 81; TEMP 36.1; O2SAT 99; BMI 26.2
--- OUTSIDE RECORDS SUMMARY | 2025-03-27 09:07 | XMS_ITS | Patient Health Record ---
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 Name Role Phone Gianna Diaz Primary Care Provider Jordin Rogers Unavailable [phone] Allergies Allergen (clinical drug ingredient) Drug/Non Drug Allergy documented on EMR Reaction Allergy Type Onset Date Status acetaminophen / oxycodone Percocet Unknown Drug Allergy Active Results Component Value Reference Range Notes Pathology Reviewed date:11/25/2024 03:01:35 PM Interpretation: Performing Lab:[facility], [address] [place] [id number] Notes/Report: Reason For Referral No Information Medications [...] Status Risk Notes Problem Colon cancer screening (091419668) Colon cancer screening (Z12.11) Active confirmed Problem History of polyp of colon (situation) (887169958) Personal history of colonic polyps (Z86.010) Active confirmed Problem Dysphagia (03833862) Dysphagia (R13.10) Active confirmed Problem Erosive esophagitis (24422266) Erosive esophagitis (K22.10) Active confirmed Problem Gastroesophageal reflux disease (269444743) GERD (gastroesophag eal reflux disease) (K21.9) Active confirmed Vital Signs Temperature 97.7 degrees Fahrenheit 11/25/2024 Blood pressure diastolic 01 mm Hg 11/25/2024 Height 5 ft 2 in in 11/25/2024 Blood pressure systolic 001 mm Hg 11/25/2024 Weight 149.2 lbs 11/25/2024 BMI 27.29 kg/m2 11/25/2024 Encounters Encounter Location Date Provider Diagnosis [facility] Outpatient [address] [place] [id number] 07/15/2024 Jordin Mixon Colon cancer screeni ng Z12.11 ; Personal history of colonic polyps Z86.0100 ; Diverticulosis of large intestine without perforation or abscess without bleeding K57.30 ; Other hemorrhoids K64.8 ; Dysphagia R13.10 ; Gastro-esophageal reflux disease with esophagitis, without bleeding K21.00 and Hiatal hernia K44.9 [facility] [address] [place] [phone] 04/27/2024 Jordin Mixon GERD (gastroesophage al reflux disease) K21.9 ; Dysphagia R13.10 ; Colon cancer screening Z12.11 and Personal history of colonic polyps Z86.010 [facility] [address] [place] [phone] 11/25/2024 Jordin Mixon Erosive esophagitis K22.10 ; GERD (gastroesophageal reflux disease) K21.9 ; Colon cancer screening Z12.11 and Personal history of colonic polyps Z86.010 [facility] [address] [place] [phone] 07/18/2024 Jordin Mixon [facility] [address] [place] [phone] 07/22/2024 Jordin Mixon Assessments Encounter Date Diagnosis [...] questions I can be of assistance with. jA was comfortable with this plan. Thank you [...] Insured Coverage Start Date Coverage End Date [facility] [address] [facility] [place] [phone] [id number] SHIRALAJ Self - patient is the insured Medical (General) History Medical History History ICD Code Denies NH,DM,CVA,Lung disease,renal dise ase Skin cancer by nose [...]
[2025-03-27 09:23] VITALS: BP 158/82
== END 2025-03-27 09:41 | disposition home or self-care (01) ==
LOC: HO.HMCH 08:44
DX: L98.9 Disorder of the skin and subcutaneous tissue, unspecified (principal); Z82.49 Family history of ischemic heart disease and other diseases of the circulatory system; G47.10 Hypersomnia, unspecified; K76.0 Fatty (change of) liver, not elsewhere classified; R03.0 Elevated blood-pressure reading, without diagnosis of hypertension; F32.A Depression, unspecified; E78.00 Pure hypercholesterolemia, unspecified